=== PATIENT | male | born 1980 | race Caucasian/White ===

== ENCOUNTER 2024-10-10 12:07 | Day surgery (SDC) | payer OTHER, SELFPAY ==
--- OUTSIDE RECORDS SUMMARY | 2024-09-18 11:57 | XMS_ITS ---
[facility] Address [address] [place] [address] Care Team Providers Care Dumb Waiter Operator Name Role Phone Marta Singh MD Primary Care Provider Edna Liang [phone] Encounters Encounter Location Date Provider Diagnosis Surgery [facility] ([facility]) [address] [place] [id number] 09/12/2024 Edna Vleoz Plan Of Treatment Next Appt Details Provider Name:Edna springer, 09/26/2024 01:30:00 PM, [address] [place] [address], [phone], Provider Name:Edna springer, 10/10/2024 01:30:00 PM, [address] [place] [address], [phone], Provider Name:Edna springer, 10/15/2024 01:30:00 PM, [address] [place] [address], [phone], Provider Name:Edna springer, 10/22/2024 01:30:00 PM, [address] [place] [address], [phone], Provider Name:Edna springer, 11/01/2024 01:30:00 PM, [address] [place] [address], [phone], Progress Notes * Sylvain STEVEN:1980 (44 yo M)Acc No.[id number]:09/12/2024 Patient:Hector JAMES Provider:?Edna Veloz DPM :1980???Age:44 Y???Sex:Male Marco Antonio e:09/12/2024 Address:[address] [place] [address], [facility], [id number] Pcp:Marta Singh MD * Images: * The named appointment provid er may or may not be the originator of this progress note, and it is not deemed complete until electronically signed by the appointment provider. Sign off status: Pending * Provider:?Edna Veloz DPM Date:?0 09/12/2024 Generated for Teodoro marie/Romulo/Mcitting on:?09/18/2024 11:57 AM EDT
--- OUTSIDE RECORDS SUMMARY | 2024-09-18 11:57 | XMS_ITS ---
Author Organization [facility] Address [address] [place] [address] Care Team Providers Care Nuclear Radiation Engineer Name Role Phone Marta Singh MD Primary Care Provider Edna Liang [phone] Encounters Encounter Location Date Provider Diagnosis [address] [phone] 09/17/2024 Edna Veloz Plan Of Treatment Next Appt Details Provider Name:Edna springer, 09/26/2024 01:30:00 PM, [address] [place] [address], [phone], Provider Name:Edna springer, 10/10/2024 01:30:00 PM, [address] [place] [address], [phone], Provider Name:Edna springer, 10/15/2024 01:30:00 PM, [address] [place] [address], [phone], Provider Name:Edna springer, 10/22/2024 01:30:00 PM, [address] [place] [address], [phone], Provider Name:Edna springer, 11/01/2024 01:30:00 PM, [address] [place] [address], [phone], Progress Notes * Sylvain STEVEN:1980 (44 yo M)Acc No.[id number]:09/17/2024 Progress Notes Patient:Hector JAMES Provider:?Edna Veloz DPM :1980???Age:44 Y???Sex:Male Marco Antonio e:09/17/2024 Address:[address] [place], [place] [id number] Pcp:Marta Singh MD Subjective: * Chief Complaints: * ??? * Medical History:? Objective: * Vitals:? Assessment: Plan: * Treatment: * Images: * The named appointment provid er may or may not be the originator of this progress note, and it is not deemed complete until electronically signed by the appointment provider. Sign off status: Pending * Provider:?Edna Veloz DPM Date:?0 09/17/2024 Generated for Teodoro marie/Romulo/eTjasonsmitting on:?09/18/2024 11:56 AM EDT
--- OUTSIDE RECORDS SUMMARY | 2024-09-18 11:57 | XMS_ITS | Encounter Summary ---
Author Name [facility] Organization [facility] Address [address] [place] [address] Care Team Providers Care Candy Catcher Name Role Phone ERICKA CHUNG Primary Care Provider Unavailabl e Insurance Providers: All historical and current Section Date Range: From patient's date of to the date document was created. This section includes the names of all active insurance providers for the patient. Insurance Provider Type of Coverage Plan Name Start of Policy Coverage End of Policy Coverage Group Number Member ID Insurance Provider's Telephone Number Policy Sweeney's Name Patient's Relationship to Policy Sweeney Selected Encounter This section includes the information on record at [place] for the Encounter. Date/Time Encounter Type Encounter Description Reason Provider Source September 13, 2024 03:00 PM OFFICE O/P EST MOD 30 MIN PRIMARY CARE/MEDICINE ICD-10-CM Z01.818 Encounter for other preprocedural examination ERICKA CHUNG Encounter Template Text not used by [place] Assessments - Encounter Diagnoses This section includes the primary and secondary diagnoses documented for the Encounter. Date/Time Primary/Secondary Diagnosis Diagnosis Name Provider Source September 13, 2024 03:23 PM PRIMARY Encounter for other preprocedural examination ERICKA CHUNG Plan of Treatment: Future Appointments (+ 6 months) and Future Tests (+/- 45 days) The Plan of Treatment section includes future care activities for the patient from all VA treatmentfacilities. This section includes future appointments and future orders which are active, pending or scheduled. Future Appointments This section includes appointments that were scheduled to occur 6 months from the date of the Encounter, up to a maximum of 20 appointments. The data comes from all [facility]. Appointment Date/Time Appointment Type Appointme nt Facility Name September 25, 2024 02:30 PM [facility] Dec 10, 2024 02:00 PM [facility] Active, Pending, and Scheduled Orders This section includes a listing of several types of active, pending, and scheduled orders, including clinic medications orders, diagnostic test orders, procedure orders and consult orders; where the start date of the order is 45 days before the date of the Encounter or 45 days after the date of theEncounter. The data comes from all [facility]. Test Date/Time Test Type Test Details Facility Name Aug 28, 2024 08:39 AM Consult Order [facility] Cons Morning News Producer's Choice [facility] Lab Results: +/- 30 days of the encounter This section includes the Chemistry and Hematology Lab Results on record with [place] for the patient. Radiology Reports and Pathology Reports are provided separately, in subsequent sections. Lab Results This section contains the Chemistry/Hematology Results that were resulted 30 days before or 30 daysafter the date of the Encounter. Date/Time Source Result Type Result - Unit Interpretation Reference Range Specimen Type Comment Aug 22, 2024 09:09 AM [facility] BASIC METABOLIC PANEL (fasting) SERUM Specime n Type: SERUM No comment entered. Ordering Provider: ERICKA CHUNG Report Released Date/Time: Jul 18, 2024 03:45 PM Reporting Lab: [facility] [address] [facility] [address] Performing Lab: [facility] [address] [facility] [address] UREA NITROGEN 18 mg/dL 9-21 GLUCOSE 94 mg/dL 65-100 SODIUM 139 mmol/L 136-145 POTASSIUM 4.4 mmol/L 3.5-5.1 CHLORIDE 106 mmol/L 98-107 CO2 25 meq/L 22-29 CALCIUM 9.0 mg/dL 8.4-10.2 CREATININE, Serum 0.77 mg/dL 0.72-1.25 eGFR(CKD-EPI 2020) >90 mL/min >60 Aug 22, 2024 09:09 AM [facility] CBC AND DIFF (AUTO) BLOOD Specimen Type: BLOO D No comment entered. Ordering Provider: ERICKA CHUNG Report Released Date/Time: Jul 18, 2024 03:45 PM Reporting Lab: [facility] [address] [facility] [address] Performing Lab: [facility] [address] [facility] [address] WBC 6.93 10*3/uL 4.50-11.00 RBC 4.27 10*6/uL 4.23-5.66 HGB 13.2 g/dL 12.8-17 HCT 39.1 L 39.2-50.4 MCV 91.6 fL 82-99 MCHC 33.8 g/dL 30.8-35.1 PLT 229 10*3/uL 140-360 MPV 10.7 fL 9.2-12.4 RDW-CV 12.4 12.0-16.0 MONO, ABS 0.74 10*3/uL 0.30-1.10 MCH 30.9 pg 26.2-32.6 NEUT % 63.3 43.7-75.8 LYMPH % 24.4 14.0-42.3 MONO % 10.7 5.1-13.7 EOS % 1.0 0.4-6.8 BASO % 0.3 0.1-2.0 NEUT, ABS 4.39 10*3/uL 2.20-7.60 LYMPH, ABS 1.69 10*3/uL 1.00-3.20 EOS, ABS 0.07 10*3/uL 0.03-0.44 BASO, ABS 0.02 10*3/uL 0.01-0.13 IMMATURE GRAN % 0.3 0.0-0.7 IMMATURE GRAN, ABS 0.02 10*3/uL 0.00-0.0 6 NRBC % 0.0 0.0-0.0 NRBC, ABS 0.00 10*3/uL 0.00-0.00 Social History: Smoking Status (Most current) and Tobacco Use (All prior to encounter date) This section includes the most current, and the historical, smoking and tobacco- related health factors from the [place] facility where the Encounter took place. Current Smoking Status This section includes the most current smoking, or tobacco-related health factor, from the [place] facility where the Encounter took place. Date/Time Current Smoking Status Comment Jose Luis ity Aug 28, 2024 10:00 AM VA-TOBACCO USE FORMER CIGARETTES [facility] Tobacco Use History This section includes a history of the smoking, or tobacco-related health factors, that were collected on or before the date of the Encounter. The data comes from the [place] facility where the Encounter took place. 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 [facility] Aug 28, 2024 10:00 AM VA-TOBACCO USE MOIRA RY DAY ENDS [facility] Aug 28, 2024 10:00 AM VA-TOBACCO USE MOIRA RY DAY OTHER TYPE [facility] Aug 28, 2024 10:00 AM VA-TOBACCO USE FOR EDDIE CIGARETTES [facility] Aug 28, 2024 10:00 AM VA-TOBACCO USE MED [facility] May 19, 2023 01:00 PM VA-TOBACCO FORMER USER [facility] May 19, 2023 01:00 PM VA-TOBACCO QUIT 5 TO < 15 YRS [facility] Apr 16, 2022 11:30 AM VA-TOBACCO DOESNT USE WI 30 MIN WAKEUP [facility] Apr 16, 2022 11:30 AM VA-TOBACCO USE > 1 5 LESS THAN 30 YEARS [facility] Apr 16, 2022 11:30 AM VA-TOBACCO USE ADVICE [facility] Apr 16, 2022 11:30 AM VA-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 [facility] Apr 16, 2022 11:30 AM VA-TOBACCO USE MED NO [facility] Apr 16, 2022 11:30 AM VA-TOBACCO USER EVERY DAY [facility] May 14, 2021 03:00 PM VA-TOBACCO DOESNT USE WI 30 MIN WAKEUP [facility] May 14, 2021 03:00 PM VA-TOBACCO USE 5 TO 15 YEARS [facility] May 14, 2021 03:00 PM VA-TOBACCO USE ADVICE [facility] May 14, 2021 03:00 PM VA-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 [facility] May 14, 2021 03:00 PM VA-TOBACCO USE MED NO [facility] May 14, 2021 03:00 PM VA-TOBACCO USER EVERY DAY [facility] Mar 20, 2019 09:35 AM VA-TOBACCO FORMER USER [facility] Mar 20, 2019 09:35 AM VA-TOBACCO QUIT 15 YRS OR MORE [facility] Jan 18, 2018 03:25 PM CURRENT SMOKER Vape 3mg, Quit cigarettes 08/2017 [facility] Mar 29, 2017 11:16 AM CURRENT SMOKER 1 pack daily since 17yrs old [facility] Mar 29, 2017 11:16 AM V1-PT NOT INTEREST ED IN QUIT TOBACCO USE [facility] Jan 31, 2014 01:23 PM CURRENT SMOKER smokes one ppd of cigaretts [facility] Jan 31, 2014 01:23 PM V1-PT DECLINES REF TO TOBACCO CESS [facility] Jan 31, 2014 01:23 PM V1-PT DECLINES TOB ACCO CESSATION [facility] Jan 31, 2014 01:23 PM V1-PT NOT INTEREST ED IN QUIT TOBACCO USE [facility] Oct 05, 2012 02:46 PM CURRENT SMOKER Pt. stated he smokes a pack a day. [facility] Oct 05, 2012 02:46 PM V1-PT DECLINES REF TO TOBACCO CESS [facility] Oct 05, 2012 02:46 PM V1-PT DECLINES TOB ACCO CESSATION [facility] Oct 05, 2012 02:46 PM V1-PT NOT INTEREST ED IN QUIT TOBACCO USE [facility] Jan 16, 2009 11:29 AM CURRENT SMOKER 1 ppd x 10yrs [facility] September 10, 2008 01:18 PM V1-PT DECLINES REF TO TOBACCO CESS [facility] September 10, 2008 01:18 PM V1-PT DECLINES TOB ACCO CESSATION [facility] September 10, 2008 01:18 PM V1-PT THINKING ABO UT QUIT TOBACCO USE [facility] Nov 13, 2007 10:09 AM CURRENT SMOKER 1 ppd [facility] Nov 13, 2007 10:09 AM V1-PT DECLINES REF TO TOBACCO CESS [facility] Nov 13, 2007 10:09 AM V1-PT DECLINES TOB ACCO CESSATION [facility] Nov 13, 2007 10:09 AM V1-PT NOT INTEREST ED IN QUIT TOBACCO USE [facility] Feb 17, 2007 09:42 AM V1-PT DECLINES REF TO TOBACCO CESS [facility] Feb 17, 2007 09:42 AM V1-PT READY TO GE T TOBACCO USE [facility] Nov 21, 2006 10:49 AM [facility] Oct 07, 2005 03:08 PM [facility] Encounter Notes: All associated encounter notes This section contains the clinical notes associated to the Encounter. Date/Time Encounter Note(s) Provider Source September 13, 2024 11:04 AM PHYSICIAN NOTE: LOCAL TITLE: MD NOTE STANDARD TITLE: PHYSICIAN NOTE DATE OF NOTE: SEPTEMBER 13, 2024@11:04 ENTRY DATE: SEPTEMBER 13, 2024@11:04:51 AUTHOR: ERICKA CHUNG EXP COSIGNER: URGENCY: STATUS: COMPLETED HISTORY OF PRESENT ILLNESS: SAVANNAH STEVEN is a 44 yo MALE who presents at the [facility] for a pre-op medical clearance exam. 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 Active problems - Computerized Problem List is the source for the followin. Hypertension 2. Sleep apnea 3. Back pain 4. Neuropathy 5. Former Smoker 6. Psoriasis 7. Morbid obesity The following VA and Non-VA meds were reconciled with patient: Active Outpatient Medications (including Supplies): Issue Date Status Last Fill Active Outpatient Medications Refills Expiration 1) DICLOFENAC NA 1% TOP GEL Qty: 200 for 14 ACTIVE Issue: 06/29/24 days Sig: APPLY 4 GRAMS TOPICALLY FOUR TIMES Refills: 2 Last : 07/20/24 A DAY FOR OSTEOARTHRITIS - USE DOSING CARD Expr : 06/30/25 PROVIDED IN BOX Indication: FOR JOINT PAIN 2) DULOXETINE HCL 60MG EC CAP Qty: 90 for 90 ACTIVE Issue: 06/12/24 days Sig: TAKE ONE CAPSULE BY MOUTH ONCE Refills: 2 Last : 08/31/24 DAILY Expr : 06/13/25 Indication: FOR CHRONIC MUSCLE OR BONE PAIN 3) LISINOPRIL 10MG TAB Qty: 90 for 90 days Sig: ACTIVE Issue: 06/12/24 TAKE ONE TABLET BY MOUTH ONCE DAILY TO Refills: 2 Last : 08/31/24 CONTROL BLOOD PRESSURE Expr : 02/12/26 4) NAPROXEN 500MG TAB Qty: 180 for 90 days Sig: ACTIVE Issue: 05/31/24 TAKE ONE TABLET BY MOUTH TWICE DAILY TAKE Refills: 0 Last : 05/31/24 WITH FOOD; /INFLAMMATION/SWELLING Expr : 08/29/24 Indication: FOR PAIN 5) PREGABALIN 150MG ORAL CAP Qty: 60 for 30 ACTIVE Issue: 05/31/24 days Sig: TAKE ONE CAPSULE BY MOUTH TWICE Refills: 0 Last : 07/25/24 DAILY Expr : 12/01/24 Indication: FOR NERVE PAIN 6) SEMAGLUTIDE WL 0.25MG/0.5ML PEN 0.5ML Qty: 4 ACTIVE Issue: 08/02/24 for 28 days Sig: INJECT 0.25MG Refills: 0 Last : 08/02/24 SUBCUTANEOUSLY ONCE A WEEK Expr : 09/01/24 Indication: FOR WEIGHT LOSS Start Date Active Non-VA Medications Status Stop Date 1) Non-VA CHOLECALCIF 50MCG (D3-2,000UNIT) TAB ACTIVE SiUNIT BY MOUTH ONCE DAILY 7 Total Medications ALLERGIES: ========= Patient has answered [facility] LAB HISTORY: CHEM 7 TREND Collection DT Spec GLUCOSE BUN CREATIN Sodium K+/Pot CL CO2 08/22/2024 09:09 SERUM 94 18 0.77 139 4.4 106 25 05/10/2024 10:26 SERUM 106 H 16 0.84 138 4.9 105 27 11/11/2023 12:55 SERUM 89 18 0.81 141 4.3 108 24 05/12/2023 10:12 SERUM 98 12 0.79 140 4.6 108 24 11/16/2022 13:48 SERUM 99 14 0.79 141 4.5 107 25 CBC TREND Collection DT Spec WBC RBC HGB HCT MCV MCH PLT 08/22/2024 09:09 BLOOD 6.93 4.27 13.2 39.1 L 91.6 30.9 229 05/10/2024 10:26 BLOOD 8.39 4.49 13.7 41.3 92.0 30.5 283 05/12/2023 10:12 BLOOD 6.96 4.37 13.4 40.4 92.4 30.7 275 05/13/2022 08:48 BLOOD 8.47 4.28 12.9 39.5 92.3 30.1 256 05/11/2021 09:26 BLOOD 13.70 H 4.17 L 13.1 40.2 96.4 31.4 300 HEMOGLOBIN A1C TREND Collection DT Spec HGBA1c 05/10/2024 10:26 BLOOD 5.4 05/12/2023 10:12 BLOOD 5.3 05/13/2022 08:48 BLOOD 5.2 05/11/2021 09:26 BLOOD 5.3 03/19/2020 09:17 BLOOD 5.2 LIPID PANEL TREND Collection DT Spec CHOL HDL CHO/HDL LDL-c TRIG 05/10/2024 10:26 SERUM 215 H 37 L 5.8 156 H 109 11/11/2023 12:55 SERUM 203 H 39 L 5.2 145 H 93 05/12/2023 10:12 SERUM 200 H 36 L 5.6 148 H 82 05/13/2022 08:48 SERUM 193 44 4.4 134 H 74 05/11/2021 09:26 SERUM 196 48 4.1 128 99 LIVER PANEL TREND Collection DT Spec AST ALT T BILI ALK LALY T. PROT ALBUMIN 05/10/2024 10:26 SERUM 18 27 0.4 63 6.9 4.0 11/11/2023 12:55 SERUM 12 23 0.6 58 6.4 3.9 05/12/2023 10:12 SERUM 17 24 0.5 54 6.6 4.1 05/13/2022 08:48 SERUM 13 17 0.6 59 6.7 4.0 05/11/2021 09:26 SERUM 13 28 0.8 48 6.5 3.9 Collection DT Spec TSH 05/10/2024 10:26 SERUM 1.64 ========= HISTORY: PERIOD OF SERVICE - [facility] [place] FROM Jun TO Jun COMBAT SERVICE INDICATED: No VITAL SIGNS: Blood Pressure 140/80 (08/30/2024 13:00) Repeat BP: 128/72 Pulse 66 (08/28/2024 10:14) Respiration 18 (08/28/2024 10:14) Pulse Oximetry 99% (08/28/2024 10:14) Temperature 98.1 F [36.7 C] (08/28/2024 10:14) Pain 2 (08/30/2024 13:00) Height 70 in [177.8 cm] (08/28/2024 10:14) Weight 347 lb [157.40 kg] (09/04/2024 16:12) BMI BMI: 49.9 REVIEW OF SYSTEMS: ENT: No sore throat, no cough CARDIOVASCULAR: No chest pain, no palps RESPIRATORY: No SOB, no wheezing GASTROINTESTINAL: No abd pain, no N/V/D GENITOURINARY: No urinary symptoms MUSCULOSKELETAL: No joint pain NEUROLOGIC: No H/A, no weakness EXAMINATION: GENERAL: WD/WN in NAD HEENT: Moist mucosa NECK: Supple, no LN's HEART: RRR, S1-S2, no murmurs LUNGS: CTA B/L ABDOMEN: Soft, NT/ND PERIPH PULSES: 2+ B/L EXTREMITIES: FROM x 4, no edema NEUROLOGIC: AAO x3, no focal findings PSYCHIATRIC: Good eye contact ASSESSMENT/PLAN: 1. 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 He is considered low risk for a low risk procedure. EKG 08/20/24: NSR @65 BPM 08/22/24: CBC w/diff & BMP normal 1. Hypertension: under good control on lisinopril 10mg/day 2. Hyperlipidemia: diet controlled 3. Morbid Obesity: BMI ~52, started Wegov[employer] [place] Qwkly on 08/02/24 and is participating in MOVE! program 4. Sleep Apnea: dxed 2014, compliant with CPAP 5. Former Smoker: quit cigs 08/2017, still vaping, counseled to quit 6. Psoriasis and Atopic Dermatitis: B/L hands, on Triamcinolone 0.5% cream BID prn, advised liquid band-aid for splits in his skin on his fingertips FOLLOW UP: as scheduled 12/10/24 - HTN/Lipids/WT - FBW prior ========= No barriers; Patient understands and agrees to current treatment plan. If pt has any questions, concerns, or changes in current health status he/she will call or come in to the VA. Medication Reconciliation: Outpatient: Has the patient been taking medications as documented in the EMLR? YES: The patient has been taking medications as documented in the EMLR. Essential Medication List for Review used to complete this medication reconciliation. INCLUDED IN THIS LIST: Alphabetical list of active outpatient prescriptions dispensed from this [place] (local) and dispensed from another [place] or [facility] facility (remote) as well as inpatient orders (local, pending and active), local clinic medications, locally documented non-VA medications, and local prescriptions that have or been discontinued in the past 90 days. - All changes in medications, including all non-VA/Herbal/OTC medications were entered into CPRS. - If there were any medications the patient should no longer take, they were discontinued. - The patient/caregiver was instructed to update this list, discard old lists, and take this list to the next appointment, whether with a VA or non-VA provider. JLV Link Data on this list may not be complete. Please check [employer]. Allergies/ADRs (Tool #5) FACILITY ALLERGY/ADR -------- [facility] No Known Allergies [facility] NO KNOWN ALLERGIES Med [facility] (Tool #1) INCLUDED IN THIS LIST: Alphabetical list of active outpatient prescriptions dispensed from this DE (local) and dispensed from another DE or [facility] facility (remote) as well as inpatient orders (local pending and active), local clinic medications, locally documented non-VA medications, and local prescriptions that have or been discontinued in the past 90 days. Non-VA Meds Last Documented On: Mar 29, 2018 NOTE The display of VA prescriptions dispensed from another [place] or [facility] facility (remote) is limited to active outpatient prescription entries matched to National Drug File at the originating site and may not include some items such as investigational drugs, compounds, etc. NOT INCLUDED IN THIS LIST: Medications self-entered by the patient into personal health records (i.e. auctionPAL) are NOT included in this list. Non-VA medications documented outside this DE, remote inpatient orders (regardless of status) and remote clinic medications are NOT included in this list. The patient and provider must always discuss medications the patient is taking, regardless of where the medication was dispensed or obtained. ---- Non-VA CHOLECALCIF 50MCG (D3-2,000UNIT) TAB TAKE TWO TABLETS BY MOUTH ONCE DAILY Patient wants to buy from Non-VA pharmacy. OUTPT DICLOFENAC NA 1% TOP GEL (Status = Active) APPLY 4 GRAMS TOPICALLY FOUR TIMES A DAY FOR JOINT PAIN FOR OSTEOARTHRITIS - USE DOSING CARD PROVIDED IN BOX Rx# [id number] Last Released: 07/18/24 Qty/Days Supply: 200/14 Rx Expiration Date: 06/30/25 Refills Remainin Indication: FOR JOINT PAIN OUTPT DULOXETINE HCL 60MG EC CAP (Status = Active) TAKE ONE CAPSULE BY MOUTH ONCE DAILY Rx# [id number] Last Released: 08/23/24 Qty/Days Supply: 90 Rx Expiration Date: 06/13/25 Refills Remainin Indication: FOR CHRONIC MUSCLE OR BONE PAIN OUTPT LISINOPRIL 10MG TAB (Status = Active) TAKE ONE TABLET BY MOUTH ONCE DAILY TO CONTROL BLOOD PRESSURE Rx# [id number] Last Released: 08/24/24 Qty/Days Supply: 90 Rx Expiration Date: 06/13/25 Refills Remainin OUTPT NAPROXEN 500MG TAB (Status = Discontinued) TAKE ONE TABLET BY MOUTH TWICE DAILY TAKE WITH FOOD; FOR PAIN/INFLAMMATION/SWELLING Rx# [id number] Last Released: 06/05/24 Qty/Days Supply: Rx Expiration Date: 08/29/24 Refills Remainin Indication: FOR PAIN OUTPT NAPROXEN 500MG TAB (Status = Active) TAKE ONE TABLET BY MOUTH TWICE DAILY TAKE WITH FOOD; FOR PAIN/INFLAMMATION/SWELLING Rx# [id number] Last Released: 08/30/24 Qty/Days Supply: Rx Expiration Date: 08/29/25 Refills Remainin Indication: FOR PAIN OUTPT PREGABALIN 150MG ORAL CAP (Status = Discontinued) TAKE ONE CAPSULE BY MOUTH TWICE DAILY FOR NERVE PAIN Rx# [id number] Last Released: 07/23/24 Qty/Days Supply: Rx Expiration Date: 12/01/24 Refills Remainin Indication: FOR NERVE PAIN OUTPT PREGABALIN 150MG ORAL CAP (Status = Active) TAKE ONE CAPSULE BY MOUTH TWICE DAILY FOR NERVE PAIN Rx# [id number] Last Released: 08/30/24 Qty/Days Supply: Rx Expiration Date: 02/28/25 Refills Remainin Indication: FOR NERVE PAIN OUTPT SEMAGLUTIDE WL 0.25MG/0.5ML PEN 0.5ML (Status = Discontinued) INJECT 0.25MG SUBCUTANEOUSLY ONCE A WEEK Rx# [id number] Last Released: 08/07/24 Qty/Days Supply: 08/27 Rx Expiration Date: 09/01/24 Refills Remainin Indication: FOR WEIGHT LOSS OUTPT SEMAGLUTIDE WL 0.5MG/0.5ML PEN 0.5ML (Status = Active) INJECT 0.5MG SUBCUTANEOUSLY ONCE A WEEK FOR WEIGHT LOSS Rx# [id number] Last Released: 08/29/24 Qty/Days Supply: 08/27 Rx Expiration Date: 09/27/24 Refills Remainin Indication: FOR WEIGHT LOSS ---- SUPPLIES ---- Home Telehealth ([facility]) Referral: Patient not a candidate for [facility] Program at this time. /clifford/ ERICKA CHUNG MD Primary Care Physician Signed: 09/13/2024 16:11 ERICKA CHUNG [facility]
--- OUTSIDE RECORDS SUMMARY | 2024-09-18 11:57 | XMS_ITS | Encounter Summary ---
Author Name [facility] [facility] [place] Address [address] [place] [address] Care Team Providers Care Childcare Aide Name Role Phone ERICKA CHUNG Primary Care [...] section includes the information on record at [place] for the Encounter. Date/Time Encounter Type Encounter Description Reason Provider Source Oct 24, 2023 01:30 PM OFFICE O/P EST HI 40 MIN EMG - ELECTROMYOGRAM ICD-10-CM M54.59 Other low back pain TRCAEE GORDON [facility] Encounter Template Text not used by [place] Assessments - Encounter Diagnoses This section includes the primary and secondary diagnoses documented for the Encounter. Date/Time Primary/Secondary Diagnosis Diagnosis Name Provider Source Oct 28, 2023 05:27 PM PRIMARY Other low back pain TRACEE GORDON [facility] Plan of Treatment: Future Appointments (+ 6 months) and Future Tests (+/- 45 days) The Plan of Treatment section includes future care activities for the patient from all [place] treatmentfacilities. This section includes future appointments and future orders which are active, pending or scheduled. Future Appointments This section includes appointments that were scheduled to occur 6 months from the date of the Encounter, up to a maximum of 20 appointments. The data comes from all [place] treatment facilities. Appointment Date/Time Appointment Type Appointme nt Facility Name Oct 26, 2023 11:00 AM [facility] Nov 17, 2023 02:30 PM [facility] Mar 21, 2024 01:30 PM [facility]BUL[facility] Lab Results: +/- 30 days of the encounter This section includes the Chemistry and Hematology Lab Results on record with [place] for the patient. Radiology Reports and Pathology Reports are provided separately, in subsequent sections. Lab Results This section contains the Chemistry/Hematology Results that were resulted 30 days before or 30 daysafter the date of the Encounter. Date/Time Source Result Type Result - Unit Interpretation Reference Range Specimen Type Comment Nov 11, 2023 12:55 PM [facility] HEPATITIS B SURFACE ANTIGEN (HBsAg)- SERUM Specimen Type: SERUM Comment: A 'Reactive' result indicates HBsAb results >/= 12.0 mIU/mL and immunity to HBV infection. A Reactive result ( Positive prior to 02/12/13) is diagnostic of acute or chronic hepatitis B infection. The presence of Hepatitis B surface antigen is frequently associated with infectivity. Ordering Provider: ERICKA CHUNG Report Released Date/Time: May 19, 2023 01:56 PM Reporting Lab: [address] [address] Performing Lab: [address] [address] HBsAg Non Reactive Non Reactive Nov 11, 2023 12:55 PM [facility] HEPATITIS B SURFACE ANTIBODY (HBsAb)- SERUM Specimen Type: SERUM No comment entered. Ordering Provider: ERICKA CHUNG Report Released Date/Time: May 19, 2023 01:56 PM Reporting Lab: [address] [address] Performing Lab: [facility] Nov 11, 2023 12:55 PM [facility] LIPID PANEL FASTING SERUM Specimen Type: SERU M No comment entered. Ordering Provider: ERICKA CHUNG Report Released Date/Time: May 19, 2023 06:46 AM Reporting Lab: [facility] [address] [facility] [address] Performing Lab: [address] [address] CHOLESTEROL 203 mg/dL H TRIGLYCERIDE 93 mg/dL 0-150 LDL calculated 145 mg/dL H 0-129 CHOL/HDL 5.2 HDL CHOLESTEROL 39 mg/dL L 40-60 Nov 11, 2023 12:55 PM [facility] LIVER FUNCTION SERUM Specimen Type: SERUM No comment entered. Ordering Provider: ERICKA CHUNG Report Released Date/Time: May 19, 2023 06:46 AM Reporting Lab: [address] [address] Performing Lab: [address] [address] PROTEIN,TOTAL 6.4 g/dL 6.0-8.3 ALBUMIN 3.9 g/dL 3.5-5.0 ALKALINE PHOSPHATASE 58 U/L 40-150 AST 12 U/L 5-34 ALT 23 U/L BILIRUBIN, TOTAL 0.6 mg/dL 0.2-1.2 Nov 11, 2023 12:55 PM [facility] BASIC METABOLIC PANEL (fasting) SERUM Specime n Type: SERUM No comment entered. Ordering Provider: ERICKA CHUNG Report Released Date/Time: May 19, 2023 06:46 AM Reporting Lab: [address] [address] Performing Lab: [address] [address] UREA NITROGEN 18 mg/dL 7-25 GLUCOSE 89 mg/dL 65-100 SODIUM 141 mmol/L 135-145 POTASSIUM 4.3 mmol/L 3.5-5.0 CHLORIDE 108 mmol/L 100-110 CO2 24 meq/L 20-30 CREATININE, Serum 0.81 mg/dL 0.50-1.40 eGFR(CKD-EPI 2020) >90 mL/min >60 Vital Signs: All taken on the encounter date This section contains inpatient and outpatient Vital Signs collected on the date of the Encounter. Date/Time Temperature Pulse Blood Pressure Respiratory Rate SP02 Pain Height Weight Body Mass Index Source Oct 24, 2023 01:34 PM 79 140/92 20 96 4 [facility] Social History: Smoking Status (Most current) and Tobacco Use (All prior to encounter date) This section includes the most current, and the historical, smoking and tobacco- related health factors from the [place] facility where the Encounter took place. Current Smoking Status This section includes the most current smoking, or tobacco-related health factor, from the [place] facility where the Encounter took place. Date/Time Current Smoking Status Comment Facil ity Mar 25, 2020 09:50 AM VA-TOBACCO FORMER USER [facility] Tobacco Use History This section includes a history of the smoking, or tobacco-related health factors, that were collected on or before the date of the Encounter. The data comes from the [place] facility where the Encounter took place. Date/Time Smoking Status/Tobacco Use Comment F acility Mar 25, 2020 09:50 AM CO-TOBACCO QUIT 1 TO < 5 YRS [facility] Radiology Reports: +/- 30 days of the encounter Radiology Reports For cases when an order for radiology services may have been completed prior to the date of the Encounter, the report list includes the Radiology Reports that were completed up to 30 days before dateof the Encounter. For cases when an order for radiology services may have been completed after the date of the Encounter, the report list also includes the Radiology Reports that were completed up to30 days after date of the Encounter. The data comes from all [place] treatment facilities. Date/Time Radiology Report Provider Source Oct 26, 2023 11:17 AM FLUOROSCOPIC HARPREET NCE OF NEEDLE/SPINE: SAVANNAH STEVEN [id number] -1980 M Exm Date: OCT 26, 2023@11:17 Req Phys: TRACEE GORDON Pat Loc: CWM/NO/MED REHAB/SPINE INJ (Re Img Loc: NHM/BUILDING 1 Service: Unknown [facility] , (Case [id number] COMPLETE) FLUOROSCOPIC GUIDANCE OF NEEDLE/S(RAD Detailed) CPT:10230 Reason for Study: transforaminal epidural steroid injection Clinical History: Report Status: Verified Date Reported: NOV 10, 2023 Date Verified: NOV 10, 2023 Transformation Coach E-Sig:/ES/MOLLY ELLIOTT JR Report: Study: Pain injection of the lumbar spine. Findings: Fluoroscopic guidance was provided to Pain Management for interventional pain injection. No dictation provided for this study. Images captured for documentation only. Total fluoroscopy time used was 21.8 seconds. Total cumulative dose is 19.73 mGy. Impression: Fluoroscopic guidance for interventional pain injection. Primary Diagnostic Code: No immediate attention required Primary Interpreting Staff: MOLLY ELLIOTT JR, Radiologist (Transformation Coach) /MOLLY TROTTER JR [facility] Encounter Notes: All associated encounter notes This section contains the clinical notes associated to the Encounter. Date/Time Encounter Note(s) Provider Source Oct 24, 2023 02:35 PM PHYSICAL MEDICINE REHAB CONSULT: LOCAL TITLE: CONSULT REPORT/NCS ELECTROMYOGRAPHY PM&R STANDARD TITLE: PHYSICAL MEDICINE REHAB CONSULT DATE OF NOTE: OCT 24, 2023@14:35 ENTRY DATE: OCT 24, 2023@14:35:12 AUTHOR: TRACEE GORDON EXP COSIGNER: URGENCY: STATUS: COMPLETED SAVANNAH STEVEN is a 43 y/o RHD WHITE MALE who presents today for an NCS/EMG to evaluate for potential etiologies contributing to low back pain with radiation and paresthesia in the right lower extremity. Patient is currently a patient in our PM&R clinic, having received right L3-4 and L4-5 transforaminal epidural steroid injections which provided 75% pain relief for about 3 months (after an intial day of fever and increased pain). Pain has slowly returned since. He reports right buttock radiating into the right anterior thigh and down to just below the knee as well as top of the right foot. Pain in the leg is rated at 4/10 but can be more severe at 6/10 or above. Symptoms are constant with varying severity, and worsen with prolonged sitting and walking. Denies fever, chills, night sweat, saddle paresthesia, or bowel or bladder dysfunction. PMHx: Active problems - Computerized Problem List is the source for the followin. Hypertension 2. Vitamin D deficiency 3. Sleep apnea 4. Back pain 5. Neuropathy 6. Former Smoker 7. Psoriasis 8. Morbid obesity Service Connected Disabilities with % Eligibility: SERVICE CONNECTED 50% to 100% VERIFIED Total S/C %: 80 LIMITED MOTION OF ANKLE 10% S/C MOOD DISORDER 30% S/C SLEEP APNEA SYNDROMES 50% S/C LIMITED MOTION OF ANKLE 10% S/C TINNITUS 10% S/C MIGRAINE HEADACHES 30% S/C PSxHx: Carpal tunnel surgery August 2019 Fam Hx: NC Soc Hx: [-] Tobacco [-] Illicit drugs ALL: Patient has answered NKA MEDS: Active Outpatient Medications (including Supplies): DULOXETINE HCL 60MG EC CAP TAKE ONE CAPSULE BY MOUTH ONCE ACTIVE DAILY LISINOPRIL 10MG TAB TAKE ONE TABLET BY MOUTH ONCE DAILY TO ACTIVE CONTROL BLOOD PRESSURE NAPROXEN 500MG TAB TAKE ONE TABLET BY MOUTH TWICE DAILY ACTIVE TAKE WITH FOOD; FOR PAIN/INFLAMMATION/SWELLING PREGABALIN 150MG ORAL CAP TAKE ONE CAPSULE BY MOUTH TWICE ACTIVE DAILY FOR NERVE PAIN Non-VA CHOLECALCIF 50MCG (D3-2,000UNIT) TAB 4000UNIT BY ACTIVE MOUTH ONCE DAILY ROS: Other than mentioned above, pertinent 13 points of system are negative. PHYSICAL EXAMINATION: Vitals Enter at: Oct 24, 2023@13:34:47 BP: 140/92 P: 79 R: 20 GEN: WD, WN. Awake, alert, cooperative with exam. In NAD. CVS: Extremities warm/well perfused. No lower extremity edema. PULM: Breathing unlabored, no accessory muscle use. EXTREMITIES: No cyanosis or edema of the lower extremities. SKIN: No rashes, lesions, or skin breakdown over exposed areas including areas tested with needle EMG today. MUSCULOSKELETAL EXAM: No gross deformities of the extremities or spine. 5/5 strength of bilateral lower extremities without focal weakness. NEURO: AA & O x 3. Sensation intact to light touch in bilateral lower extremities except over the right thigh. No ankle clonus bilaterally. Gait is slightly wide based, partially due to body habitus, with mild trendelenburg. CONSENT: verbal and written consent in iMED. TIME OUT: Patient correctly identified: [x] Full name [x] [x] Last 4 of SS# [x] Procedure name FINDINGS: 1. Normal right sural antisensory response. 2. Normal right superficial fibular antisensory response. 3. Unable to obtain right lateral femoral cutaneous antisensory response. 4. Normal right tibial motor response. 5. Normal right fibular motor response. 6. Normal monopolar needle EMG of selected muscles in the right lower extremity, per table attached. IMPRESSION: NORMAL STUDY. 1. There is no electrodiagnostic evidence of a right tibial or peroneal mononeuropathy, lumbosacral plexopathy, generalized peripheral neuropathy, myopathy, motor neuron disease, or L2-S1 radiculopathy. 2. The right lateral femoral cutaneous nerve was unable to be obtained due to this study's limitations and partially due to patient's body habitus. Meralgia paresthetica cannot be ruled out. RECOMMENDATIONS: - Preliminary results of the study was discussed with patient. - Scheduling repeat right L3-4 and L4-5 transforaminal epidural steroid injection. - Follow-up with ordering provider to discuss results and management. If patient's symptoms worsen, a repeat NCS/EMG is recommended in 6-12 months (or sooner if clinically indicated) for re-evaluation. Thank you for allowing me to participate in this patient's care. Please call with any questions/concerns. MDM: 65 min Medication Reconciliation: Outpatient: Has the patient been taking medications as documented in the EMLR? YES: The patient has been taking medications as documented in the EMLR. Essential Medication List for Review used to complete this medication reconciliation. INCLUDED IN THIS LIST: Alphabetical list of active outpatient prescriptions dispensed from this [place] (local) and dispensed from another [place] or [facility] facility (remote) as well as inpatient orders [...] whether with a VA or non-VA provider. /clifford/ TRACEE GORDON DO ORCHESTRA CONDUCTOR Signed: 10/28/2023 17:25 TRAECE GORDON [facility]
--- OUTSIDE RECORDS SUMMARY | 2024-09-18 11:57 | XMS_ITS ---
Author Organization [facility] Address [address] [place] [address] Care Team Providers Care Nurse Examiner Name Role Phone Marta Singh MD Primary Care Provider Edna Liang [phone] REASON FOR VISIT [facility] sx booking process 10/10/24 Encounters Encounter Location Date Provider Diagnosis [facility] [address] [address] 09/03/2024 Edna Veloz Plan Of Treatment Next Appt Details Provider Name:Edna springer, 09/26/2024 01:30:00 PM, [address] [place] [address], [phone], Provider Name:Edna springer, 10/10/2024 01:30:00 PM, [address] [place] [address], [phone], Provider Name:Edna springer, 10/15/2024 01:30:00 PM, [address] [place] [address], [phone], Provider Name:Edna springer, 10/22/2024 01:30:00 PM, [address] [place] [address], [phone], Provider Name:Edna springer, 11/01/2024 01:30:00 PM, [address] [place] [address], [phone], Progress Notes * Hector STEVENDOB:1980 (44 yo M)Acc No.[id number]:09/03/2024 Patient:?TENISHA Hector :1980???Age:44 Y???Sex:Male Address:[address] [place] [id number] * * Date:?
--- OUTSIDE RECORDS SUMMARY | 2024-09-18 11:57 | XMS_ITS | Encounter Summary ---
Author Name [facility] [place] [facility] [place] Address [address] [place] [address] Care Team Providers Care Copyright Manager Name Role Phone MARTA CHUNG Primary Care Provider Unavailabl e Insurance [...] section includes the information on record at [place] for the Encounter. Date/Time Encounter Type Encounter Description Reason Provider Source Nov 17, 2023 02:30 PM OFFICE O/P EST LOW 20 MIN PRIMARY CARE/MEDICINE ICD-10-CM I10 Essential (primary) hypertension MARTA CHUNG Encounter Template Text not used by [place] Assessments - Encounter Diagnoses This section includes the primary and secondary diagnoses documented for the Encounter. Date/Time Primary/Secondary Diagnosis Diagnosis Name Provider Source Nov 17, 2023 03:00 PM PRIMARY Essential (primary) hypertension MARTA CHUNG Nov 17, 2023 03:00 PM SECONDARY Morbid (severe) obesity due to excess calories MARTA CHUNG Plan of Treatment: Future Appointments (+ [...] 20 appointments. The data comes from all [place] treatment facilities. Appointment Date/Time Appointment Type Appointme nt Facility Name Mar 21, 2024 01:30 PM AMBULATORY - REHAB MEDICIN E [facility] Lab Results: +/- 30 days of the encounter This section includes the Chemistry and Hematology Lab Results on record with [place] for the patient. Radiology Reports and Pathology Reports are provided separately, in subsequent sections. Lab Results This section contains the Chemistry/Hematology Results that were resulted 30 days before or 30 daysafter the date of the Encounter. Date/Time Source Result Type Result - Unit Interpretation Reference Range Specimen Type Comment Nov 11, 2023 12:55 PM [facility] HEPATITIS B SURFACE ANTIGEN (HBsAg)- SERUM Specimen Type: SERUM Comment: A 'Reactive' result indicates HBsAb results >/= 12.0 mIU/mL and immunity to HBV infection. A Reactive result ( Positive prior to 02/12/13) is diagnostic of acute or chronic hepatitis B infection. The presence of Hepatitis B surface antigen is frequently associated with infectivity. Ordering Provider: MARTA CHUNG Report Released Date/Time: May 19, 2023 01:56 PM Reporting Lab: [address] [address] Performing Lab: [address] [address] HBsAg Non Reactive Non Reactive Nov 11, 2023 12:55 PM [facility] HEPATITIS B SURFACE ANTIBODY (HBsAb)- SERUM Specimen Type: SERUM No comment entered. Ordering Provider: MARTA CHUNG Report Released Date/Time: May 19, 2023 01:56 PM Reporting Lab: [address] [address] Performing Lab: [facility] Nov 11, 2023 12:55 PM [facility] LIPID PANEL FASTING SERUM Specimen Type: SERU M No comment entered. Ordering Provider: MARTA CHUNG Report Released Date/Time: May 19, 2023 06:46 AM Reporting Lab: [facility] [address] [facility] [address] Performing Lab: [address] [address] CHOLESTEROL 203 mg/dL H TRIGLYCERIDE 93 mg/dL 0-150 LDL calculated 145 mg/dL H 0-129 CHOL/HDL 5.2 HDL CHOLESTEROL 39 mg/dL L 40-60 Nov 11, 2023 12:55 PM [facility] LIVER FUNCTION SERUM Specimen Type: SERUM No comment entered. Ordering Provider: MARTA CHUNG Report Released Date/Time: May 19, 2023 06:46 AM Reporting Lab: [address] [address] Performing Lab: [address] [phone] PROTEIN,TOTAL 6.4 g/dL 6.0-8.3 ALBUMIN 3.9 g/dL 3.5-5.0 ALKALINE PHOSPHATASE 58 U/L 40-150 AST 12 U/L 5-34 ALT 23 U/L BILIRUBIN, TOTAL 0.6 mg/dL 0.2-1.2 Nov 11, 2023 12:55 PM [facility] BASIC METABOLIC PANEL (fasting) SERUM Specime n Type: SERUM No comment entered. Ordering Provider: MARTA CHUNG Report Released Date/Time: May 19, 2023 06:46 AM Reporting Lab: [address] [phone] Performing Lab: [address] [address] UREA NITROGEN 18 mg/dL 7-25 GLUCOSE 89 mg/dL 65-100 SODIUM 141 mmol/L 135-145 POTASSIUM 4.3 mmol/L 3.5-5.0 CHLORIDE 108 mmol/L 100-110 CO2 24 meq/L 20-30 CREATININE, Serum 0.81 mg/dL 0.50-1.40 eGFR(CKD-EPI 2020) >90 mL/min >60 Social History: Smoking Status (Most current) and Tobacco Use (All prior to encounter date) This section includes the most current, and the historical, smoking and tobacco- related health factors from the [place] facility where the Encounter took place. Current Smoking Status This section includes the most current smoking, or tobacco-related health factor, from the [place] facility where the Encounter took place. Date/Time Current Smoking Status Comment Jose Luis [email or web address] May 19, 2023 01:00 PM VA-TOBACCO QUIT 5 TO < 15 YRS [facility] Tobacco Use History This section includes a history of the smoking, or tobacco-related health factors, that were collected on or before the date of the Encounter. The data comes from the [place] facility where the Encounter took place. Date/Time Smoking Status/Tobacco Use Comment F acility May 19, 2023 01:00 PM VA-TOBACCO QUIT 5 TO < 15 YRS [facility] Apr 16, 2022 11:30 AM VA-TOBACCO DOESNT USE WI 30 MIN [place] Apr 16, 2022 11:30 AM VA-TOBACCO USE > 1 5 LESS THAN 30 YEARS [facility] Apr 16, 2022 11:30 AM VA-TOBACCO USE ADVICE [facility] Apr 16, 2022 11:30 AM VA-TOBACCO USE MOLDING FITTER NO [place] Apr 16, 2022 11:30 AM VA-TOBACCO USE MED [facility] Apr 16, 2022 11:30 AM VA-TOBACCO USER EVERY DAY [facility] May 14, 2021 03:00 PM VA-TOBACCO DOESNT USE WI 30 MIN [place] May 14, 2021 03:00 PM VA-TOBACCO USE 5 TO 15 YEARS [facility] May 14, 2021 03:00 PM VA-TOBACCO USE ADVICE [facility] May 14, 2021 03:00 PM VA-TOBACCO USE MOLDING FITTER NO [facility] May 14, 2021 03:00 PM VA-TOBACCO USE MED NO [facility] May 14, 2021 03:00 PM VA-TOBACCO USER EVERY DAY [facility] Mar 20, 2019 09:35 AM VA-TOBACCO FORMER USER [facility] Mar 20, 2019 09:35 AM VA-TOBACCO QUIT 15 YRS OR MORE [facility] Jan 18, 2018 03:25 PM CURRENT SMOKER Vape 3mg, Quit cigarettes 08/2017 DA[place] Mar 29, 2017 11:16 AM CURRENT SMOKER 1 pack daily since 17yrs old [facility] Mar 29, 2017 11:16 AM V1-PT NOT INTEREST ED IN QUIT TOBACCO USE [facility] Jan 31, 2014 01:23 PM CURRENT SMOKER smokes one ppd of cigaretts DANA Jan 31, 2014 01:23 PM V1-PT DECLINES REF TO TOBACCO CESS [facility] Jan 31, 2014 01:23 PM V1-PT DECLINES TOB ACCO CESSATION [facility] Jan 31, 2014 01:23 PM V1-PT NOT INTEREST ED IN QUIT TOBACCO USE [facility] Oct 05, 2012 02:46 PM CURRENT SMOKER Pt. stated he smokes a pack a day. [facility]NA Oct 05, 2012 02:46 PM V1-PT DECLINES REF TO TOBACCO CESS [facility] Oct 05, 2012 02:46 PM V1-PT DECLINES TOB ACCO CESSATION [facility] Oct 05, 2012 02:46 PM V1-PT NOT INTEREST ED IN QUIT TOBACCO USE [facility] Jan 16, 2009 11:29 AM CURRENT SMOKER 1 ppd x 10yrs DANA September 10, 2008 01:18 PM V1-PT DECLINES REF TO TOBACCO CESS [facility] September 10, 2008 01:18 PM V1-PT DECLINES TOB ACCO CESSATION [facility] September 10, 2008 01:18 PM V1-PT THINKING ABO UT QUIT TOBACCO USE DANA Nov 13, 2007 10:09 AM CURRENT SMOKER 1 ppd DANA Nov 13, 2007 10:09 AM V1-PT DECLINES REF TO TOBACCO CESS [facility] Nov 13, 2007 10:09 AM V1-PT DECLINES TOB ACCO CESSATION [facility] Nov 13, 2007 10:09 AM V1-PT NOT INTEREST ED IN QUIT TOBACCO USE DANA Feb 17, 2007 09:42 AM V1-PT DECLINES REF TO TOBACCO CESS [facility] Feb 17, 2007 09:42 AM V1-PT READY TO GE T TOBACCO USE [facility] Nov 21, 2006 10:49 AM CURRENT SMOKER JAMIE KIERSTEN Oct 07, 2005 03:08 PM CURRENT SMOKER JAMIE BURCH Radiology Reports: +/- 30 days of the [...] the Encounter. The data comes from all [place] treatment facilities. Date/Time Radiology Report Provider Source Oct 26, 2023 11:17 AM FLUOROSCOPIC HARPREET NCE OF NEEDLE/SPINE: SAVANNAH STEVEN [id number] -[id number] M Exm Date: OCT 26, 2023@11:17 Req Phys: TRACEE GORDON Pat Loc: [facility]/NO/MED REHAB/SPINE INJ (Re Img Loc: [facility]/BUILDING 1 Service: Unknown [facility] , (Case [id number] COMPLETE) FLUOROSCOPIC GUIDANCE OF NEEDLE/S(RAD Detailed) CPT:01363 Reason for Study: transforaminal epidural steroid injection Clinical History: Report Status: Verified Date Reported: NOV 10, 2023 Date Verified: NOV 10, 2023 Station Master E-Sig:/ES/MOLLY ELLIOTT JR Report: Study: Pain injection [...] Primary Interpreting Staff: MOLLY ELLIOTT JR, Radiologist (Station Master) /EAD MOLLY ELLIOTT JR [facility] Encounter Notes: All associated encounter notes This section contains the clinical notes associated to the Encounter. Date/Time Encounter Note(s) Provider Source Nov 17, 2023 03:21 PM ACCOUNTING OF DISC LOSURES NOTE: LOCAL TITLE: STATE PRESCRIPTION DRUG MONITORING PROGRAM STANDARD TITLE: ACCOUNTING OF DISCLOSURES NOTE DATE OF NOTE: NOV 17, 2023@15:21:52 ENTRY DATE: NOV 17, 2023@15:21:52 AUTHOR: JENNA LARRY EXP COSIGNER: MARTA CHUNG URGENCY: STATUS: COMPLETED This PDMP query was submitted by Jenna Larry on behalf of Marta Chung MD. The clinical justification for this PDMP query is to review controlled substances prescribed outside of the [place], and any additional information that may become available, as an important component of standard clinical care, and in accordance with [facility] policy. Patient information was shared with the PDMP [place]. The [place] prescriber, for which I am a delegate, will be alerted of these PDMP findings through co-signature of this progress note. No prescription(s) for controlled substances outside the [place] were found in the last 90 days. /clifford/ JENNA LARRY LPN PACT 10 Signed: 11/17/2023 15:22 /clifford/ MARTA CHUNG MD Primary Care Physician Cosigned: 11/17/2023 15:26 JENNA LARRY DANA Nov 17, 2023 02:29 PM PREVENTIVE MEDICIN E NURSING NOTE: LOCAL TITLE: CLINICAL REMINDERS/NURSING STANDARD TITLE: PREVENTIVE MEDICINE NURSING NOTE DATE OF NOTE: NOV 17, 2023@14:29 ENTRY DATE: NOV 17, 2023@14:29:11 AUTHOR: JENNA LARRY EXP COSIGNER: URGENCY: STATUS: COMPLETED Depression Screening: Perform PHQ-2 A PHQ-2 screen was performed. The score was 0 which is a negative screen for depression. Over the past two weeks, how often have you been bothered by the following problems? 1. Little interest or pleasure in doing things Not at all 2. Feeling down, depressed, or hopeless Not at all COVID-19 Immunization: Referred to another clinic for immunization (desired vaccine unavailable at this location) RHS Screen: RHS Screen Session Format: Face to Face Environmental Check Upon inquiry, the individual reports that the environment is safe to proceed. Informed Consent to Screen and Document The individual consents to proceed with screening. The individual consents to documentation of responses. PRIMARY SCREEN: In the past 12 months, how often did a current or former intimate partner (e.g., boyfriend, girlfriend, , , sexual partner): 1. Scream or curse at you Never 2. Insult or talk down to you Never 3. Threaten you with harm Never 4. Physically hurt you Never 5. Force or pressure you to have sexual contact against your will, or when you were unable to say no Never ?? The HITS tool (items 1-4 above) is [place] copyright protected by Honorio Holman MD, and the user has full rights to use it throughout the [place] system. PRIMARY SCREEN RESULT: The Primary Screen is NEGATIVE. The individual answered never to all forms of IPV above (i.e., answered never to all 5 items) The individual accepts education and/or resources: No EDUCATION: The individual indicated readiness to learn. Education offered during this session as noted above. The individual indicated understanding by asking relevant questions and making appropriate comments. No barriers to learning were observed or identified. /clifford/ JENNA LARRY LPN PACT 10 Signed: 11/17/2023 14:31 JENNA LARRY Nov 17, 2023 10:25 AM PHYSICIAN NOTE: LOCAL TITLE: MD NOTE STANDARD TITLE: PHYSICIAN NOTE DATE OF NOTE: NOV 17, 2023@10:25 ENTRY DATE: NOV 17, 2023@10:25:29 AUTHOR: MARTA CHUNG EXP COSIGNER: URGENCY: STATUS: COMPLETED HISTORY OF PRESENT ILLNESS: SAVANNAH STEVEN, is a 43 yo MALE [place], who presents at the [facility] for f/u to hypertension, hyperlipidemia, and weight check. Labs completed. Active problems - Computerized Problem List is the source for the followin. Hypertension 2. Sleep apnea 3. Back pain 4. Neuropathy 5. Former Smoker 6. Psoriasis 7. Morbid obesity The following VA and Non-VA meds were reconciled with patient: Active Outpatient Medications (including Supplies): Issue Date Status Last Fill Active Outpatient Medications Refills Expiration ======= 1) DULOXETINE HCL 60MG EC CAP Qty: 90 for ACTIVE Issu:05-19-23 90 days Sig: TAKE ONE CAPSULE BY Refills: 1 Last:11-07-23 MOUTH ONCE DAILY Expr:05-19-24 2) LISINOPRIL 10MG TAB Qty: 90 for 90 days ACTIVE Issu:05-02-23 Sig: TAKE ONE TABLET BY MOUTH ONCE Refills: 1 Last:11-02-23 DAILY TO CONTROL BLOOD PRESSURE Expr:05-02-24 3) NAPROXEN 500MG TAB Qty: 180 for 90 days ACTIVE Issu:05-19-23 Sig: TAKE ONE TABLET BY MOUTH TWICE Refills: 0 Last:08-09-23 DAILY TAKE WITH FOOD; FOR Expr:05-19-24 PAIN/INFLAMMATION/SWELLING 4) PREGABALIN 150MG ORAL CAP Qty: 60 for ACTIVE Issu:05-19-23 30 days Sig: TAKE ONE CAPSULE BY Refills: 1 Last:10-26-23 MOUTH TWICE DAILY FOR NERVE PAIN Expr:11-19-23 Start Date Active Non-VA Medications Refills Expiration ======= 1) Non-VA CHOLECALCIF 50MCG (D3-2,000UNIT) ACTIVE TAB SiUNIT BY MOUTH ONCE DAILY 5 Total Medications ALLERGIES: ========= Patient has answered [facility] LAB HISTORY: CHEM 7 TREND LAB CUMULATIVE SELECTED Collection DT Spec GLUCOSE BUN CREATIN Sodium K+/Pot CL CO2 11/11/2023 12:55 SERUM 89 18 0.81 141 4.3 108 24 05/12/2023 10:12 SERUM 98 12 0.79 140 4.6 108 24 11/16/2022 13:48 SERUM 99 14 0.79 141 4.5 107 25 05/13/2022 08:48 SERUM 95 18 0.77 140 4.3 106 28 12/31/2021 13:44 SERUM 93 14 0.98 141 4.7 107 28 LIPID PANEL TREND Collection DT Spec CHOL HDL CHO/HDL LDL-c TRIG 11/11/2023 12:55 SERUM 203 H 39 L 5.2 145 H 93 05/12/2023 10:12 SERUM 200 H 36 L 5.6 148 H 82 05/13/2022 08:48 SERUM 193 44 4.4 134 H 74 05/11/2021 09:26 SERUM 196 48 4.1 128 99 03/19/2020 09:17 SERUM 183 42 4.4 119 112 LIVER PANEL TREND Collection DT Spec AST ALT T BILI ALK LALY T. PROT ALBUMIN 11/11/2023 12:55 SERUM 12 23 0.6 58 6.4 3.9 05/12/2023 10:12 SERUM 17 24 0.5 54 6.6 4.1 05/13/2022 08:48 SERUM 13 17 0.6 59 6.7 4.0 05/11/2021 09:26 SERUM 13 28 0.8 48 6.5 3.9 03/19/2020 09:17 SERUM 15 29 0.6 55 6.7 3.9 HISTORY: PERIOD OF SERVICE - [facility] [employer] [facility] FROM Jun TO Jun COMBAT SERVICE INDICATED: No VITAL SIGNS: Blood Pressure 146/88 (11/17/2023 14:27)Repeat BP: 139/86 Pulse 68 (11/17/2023 14:27) Respiration 16 (11/17/2023 14:27) Pulse Oximetry 96% (11/17/2023 14:27) Temperature 98.3 F [36.8 C] (11/17/2023 14:27) Pain 0 (11/17/2023 14:27) Height 70 in [177.8 cm] (11/17/2023 14:27) Weight 357.6 lb [162.20 kg] (11/17/2023 14:27) BMI BMI: 51.4 REVIEW OF SYSTEMS: CARDIOVASCULAR: No chest pain RESPIRATORY: No SOB, no wheezing GASTROINTESTINAL: No abd pain, no N/V/D MUSCULOSKELETAL: No joint pain, no joint swelling NEUROLOGIC: No H/A, no numbness, no weakness EXAMINATION: GENERAL: WD/WN , pleasant & in NAD HEENT: Moist mucosa NECK: Supple, no carotid bruits HEART: RRR, S1-S2, no murmurs LUNGS: CTA B/L ABDOMEN: Soft, morbid obesity PERIPH PULSES: 2+ B/L EXTREMITIES: FROM x 4, no edema, gait normal ASSESSMENT/PLAN: 1. Hypertension: under acceptable control on lisinopril 10mg/day, advised him to track his BP at home 2. Hyperlipidemia: advised diet and lifestyle modifications Collection DT Spec CHOL HDL CHO/HDL LDL-c TRIG 11/11/2023 12:55 SERUM 203 H 39 L 5.2 145 H 93 05/12/2023 10:12 SERUM 200 H 36 L 5.6 148 H 82 05/13/2022 08:48 SERUM 193 44 4.4 134 H 74 3. Morbid Obesity: BMI ~53, counseled on weight loss 4. Right Foot Hammer Toe: 2nd digit, severe, very painful, unable to wear shoes, managed by podiatry, going to his pre-op tomorrow, will Rx tramadol 50-100mg QHS prn, #60, 0RF FOLLOW UP: 6 mths - AWE - [facility]W prior ========= UPCOMING APPOINTMENTS: 03/21/2024 13:30 [facility]/NO/MED REHAB/SPINE IN No barriers; Patient understands and agrees to [...] of active outpatient prescriptions dispensed from this [facility] (local) and dispensed from another VA or DoD facility (remote) as well as [...] list may not be complete. Please check JLV. Allergies/ADRs (Tool #5) FACILITY ALLERGY/ADR -------- [facility] No Known Allergies [facility] NO KNOWN ALLERGIES Med Recon NoGlossary (Tool #1) INCLUDED IN THIS LIST: Alphabetical list of active outpatient prescriptions dispensed from this VA (local) and dispensed from another VA or DoD facility (remote) as well as inpatient orders (local pending and active), local clinic medications, locally documented non-VA medications, and local prescriptions that have or been discontinued in the past 90 days. Non-VA Meds Last Documented On: Mar 29, 2018 NOTE The display of VA prescriptions dispensed from another VA or DoD facility (remote) is limited to active outpatient prescription entries matched to National Drug File at the originating site and may not include some items such as investigational drugs, compounds, etc. NOT INCLUDED IN THIS LIST: Medications self-entered by the patient into personal health records (i.e. [employer]) are NOT included in this list. Non-VA medications documented outside this VA, remote inpatient orders (regardless of status) and remote clinic medications are NOT included in this list. The patient and provider must always discuss medications the patient is taking, regardless of where the medication was dispensed or obtained. ------ [place] CHOLECALCIF 50MCG (D3-2,000UNIT) TAB TAKE TWO TABLETS BY MOUTH ONCE DAILY Patient wants to buy from Non-[place] pharmacy. OUTPT DULOXETINE HCL 60MG EC CAP (Status = Active) TAKE ONE CAPSULE BY MOUTH ONCE DAILY Rx# [id number] Last Released: 10/25/23 Qty/Days Supply: 90 Rx Expiration Date: 05/19/24 Refills Remainin Indication: FOR CHRONIC MUSCLE OR BONE PAIN OUTPT LISINOPRIL 10MG TAB (Status = Active) TAKE ONE TABLET BY MOUTH ONCE DAILY TO CONTROL BLOOD PRESSURE Rx# [id number] Last Released: 10/25/23 Qty/Days Supply: 90/90 Rx Expiration Date: 05/02/24 Refills Remainin OUTPT NAPROXEN 500MG TAB (Status = Active) TAKE ONE TABLET BY MOUTH TWICE DAILY TAKE WITH FOOD; FOR PAIN/INFLAMMATION/SWELLING Rx# [id number] Last Released: 07/27/23 Qty/Days Supply: 180/90 Rx Expiration Date: 05/19/24 Refills Remainin Indication: FOR PAIN OUTPT PREGABALIN 150MG ORAL CAP (Status = Active) TAKE ONE CAPSULE BY MOUTH TWICE DAILY FOR NERVE PAIN Rx# [id number] Last Released: 10/24/23 Qty/Days Supply: 60/30 Rx Expiration Date: 11/19/23 Refills Remainin Indication: FOR NERVE PAIN ------ SUPPLIES ------ Home Telehealth ([facility]HT) Referral: Patient not a candidate for [facility]T Program at this time. HTN Assess for Elevated BP>=140/90: Repeat blood pressure: 138/86 /es/ MARTA CHUNG MD Primary Care Physician Signed: 11/17/2023 15:25 MARTA CHUNG DANA
--- OUTSIDE RECORDS SUMMARY | 2024-09-18 11:57 | XMS_ITS | Patient Health Record ---
Author Organization [facility] Address [address] [place] [address] Care Team Providers Care Service And Repair Supervisor Name Role Phone Francisco HECK, Marta Primary Care Provider Edna Liang Unavailable [phone] Mauro Thibodeaux Unavailable [phone] Melani Tubbs Unavailable [phone] Allergies No Known Allergies Reason For Referral Diagnosis 1 Other hammer toe(s) (acquired), right foot (M20.41) Diagnosis 2 Arthritis of joint o f lesser toe, right (M19.071) Diagnosis 3 Subluxation of metat arsophalangeal joint of toe, initial encounter (S93.149A) Diagnosis 4 Pain in right toe(s) (M79.674) Referring Provider First Name Marta Referring Provider Last Name Francisco Referred Organization [facility] Referred Provider Edna Veloz Referred Address [address] [place], [place],[address], Referred Provider Specialty Podiatry Referral Priority Routine Medications Medication SIG (Take, Route, Fr equency, Duration) Notes Start Date End Date Status Naproxen 500 MG 1 tablet with food o r milk as needed Orally every 12 hrs Activ e DULoxetine HCl 60 MG 1 capsule Orally Once a day Active Pregabalin 150 MG 1 capsule in the juan david oli 1 to 3 hours before bedtime Orally Once a day Active Lisinopril 10 MG 1 tablet Orally Once a day Active Social History Tobacco Use: Social History Observation Description Date Details (start date - stop date) Never Smoker NA - NA Tobacco use other than smoking: Question Answer Notes Are you an other tobacco user? Yes V aping Tobacco Control (Standard) Question Answer Notes Tobacco use: Nonsmoker Additional Findings: Tobacco non-user Current no nsmoker AUDIT-C (Standard) Question Answer Notes Did you have a drink containing alcohol in the p ast year? No Points 0 Interpretation Negative Section Notes: pt admits to vaping pt admits to vaping pt admits to vaping Problems Problem Type SNOMED Code ICD Code Onset Dates Problem Status W/U Status Risk Notes Problem Acquired hammer toe of right foot (4544544740072407) Other hammer toe(s) (acquired), right foot (M20.41) Active confirmed Problem Localized, primary osteoarthritis of the ankle and/or foot (556335717) Arthritis of joint of lesser toe, right (M19.071) Active confirmed Vital Signs Height [id number] in 09/03/2024 Weight 350 lbs 09/03/2024 BMI 50.21 kg/m2 09/03/2024 Encounters Encounter Location Date Provider [facility] [address] [address] 10/17/2023 Mauro Carlos Eduardo Pain in right toe(s) M79.674 ; Other hammer toe(s) (acquired), right foot M20.41 ; Arthritis of joint of lesser toe, right M19.071 and Subluxation of metatarsophalangeal joint of toe, initial encounter S93.149A [facility] [address] [address] 11/18/2023 Melani Perica Pain in right toe(s) M79.674 ; Other hammer toe(s) (acquired), right foot M20.41 ; Arthritis of joint of lesser toe, right M19.071 and Subluxation of metatarsophalangeal joint of toe, initial encounter S93.149A [facility] [address] 09/03/2024 Ednalenora Veloz Pain in right toe(s) M79.674 ; Other hammer toe(s) (acquired), right foot M20.41 ; Arthritis of joint of lesser toe, right M19.071 and Subluxation of metatarsophalangeal joint of toe, initial encounter S93.149A [facility] [address] [place] [address] 09/03/2024 Edna Veloz [facility] [place] [address] [facility] [address] [place] [address] 10/17/2023 Maurosurendra OrtezCarlos Eduardo [facility] [address] [place] [address] 11/18/2023 Edna Veloz Assessments Encounter Date Diagnosis (ICD Code) Assessment Notes Treatment Notes Treatment Clinical Notes Section Notes 10/17/2023 Pain in right toe(s) (ICD-10 - M79.674) 10/17/2023 Other hammer toe(s) (acquired), right foot (ICD-10 - M20.41) 11/18/2023 Pain in right toe(s) (ICD-10 - M79.674) 11/18/2023 Other hammer toe(s) (acquired), right foot (ICD-10 - M20.41) 09/03/2024 Pain in right toe(s) (ICD-10 - M79.674) 09/03/2024 Other hammer toe(s) (acquired), right foot (ICD-10 - M20.41) 10/17/2023 Arthritis of joint o f lesser toe, right (ICD-10 - M19.071) 11/18/2023 Arthritis of joint o f lesser toe, right (ICD-10 - M19.071) 09/03/2024 Arthritis of joint o f lesser toe, right (ICD-10 - M19.071) 09/03/2024 Subluxation of metatarsophalangeal joint of toe, initial encounter (ICD-10 - S93.149A) 11/18/2023 Subluxation of metatarsophalangeal joint of toe, initial encounter (ICD-10 - S93.149A) 10/17/2023 Subluxation of metatarsophalangeal joint of toe, initial encounter (ICD-10 - S93.149A) Plan Of Treatment Pending Test Test Name Order Date X ray : Foot, right 3V 10/17/2023 Next Appt Details Provider Name:Edna springer, 09/26/2024 01:30:00 PM, [address] [place] [address], [phone], Provider Name:Edna Chet springer, 10/10/2024 01:30:00 PM, [address] [place] [address], [phone], Provider Name:Edna springer, 10/15/2024 01:30:00 PM, [address] [place] [address], [phone], Provider Name:Edna springer, 10/22/2024 01:30:00 PM, [address] [place] [address], [phone], Provider Name:Edna springer, 11/01/2024 01:30:00 PM, [address] [place] [address], [phone], Insurance Providers Payer Name Payer Address Payer Phone Subscriber Number Group Number Insured Name Patient Relationship to Insured Coverage Start Date Coverage End Date [employer]AC[employer] [address] [place] [address] [id number] Hector De La Paz Self - patient is the insured Medical (General) History Medical History History ICD Code Back pain - Sciatica High blood pressure Psoriasis/eczema Warts Chicken pox Sleep apnea
--- OUTSIDE RECORDS SUMMARY | 2024-09-18 11:58 | XMS_ITS | Encounter Summary ---
Author Name [facility] [place] Organization [facility] [place] Address [address] [place] [id number] Care Team Providers Care Senior Marketing Data Analyst Name Role Phone ERICKA CHUNG Primary Care [...] section includes the information on record at [place] for the Encounter. Date/Time Encounter Type Encounter Description Reason Provider Source Aug 21, 2024 01:00 PM [facility] IVNTJ GRP EA ADDL WEIGHT MGMT & MOVE! PROG - GRP ICD-10-CM E66.813 Obesity, class 3 WANG FELIZ Encounter Template Text not used by [place] Assessments - Encounter Diagnoses This section includes the primary and secondary diagnoses documented for the Encounter. Date/Time Primary/Secondary Diagnosis Diagnosis Name Provider Source Aug 21, 2024 04:05 PM PRIMARY Obesity, class 3 WANG FELIZ ([facility]) Aug 21, 2024 04:05 PM SECONDARY Body mass index [BMI] 45.0-49.9, adult WANG FELIZ ([facility]) Plan of Treatment: Future Appointments (+ 6 months) and Future Tests (+/- 45 days) The Plan of Treatment section includes future care activities for the patient from all [place] [facility]. This section includes future appointments and future orders which are active, pending or scheduled. Future Appointments This section includes appointments that were scheduled to occur 6 months from the date of the Encounter, up to a maximum of 20 appointments. The data comes from all [facility]. Appointment Date/Time Appointment Type Appointme nt Facility Name Aug 28, 2024 10:00 AM [facility] Aug 28, 2024 01:00 PM [facility] ([facility] Aug 28, 2024 02:00 PM [facility] August 30, 2024 01:00 PM [facility] September 03, 2024 02:00 PM [facility] September 25, 2024 02:30 PM [facility] Dec 10, 2024 02:00 PM AMBULATORY MEDICINE [facility] Active, Pending, and Scheduled Orders This section includes a listing of several types of active, pending, and scheduled orders, including clinic medications orders, diagnostic test orders, procedure orders and consult orders; where the start date of the order is 45 days before the date of the Encounter or 45 days after the date of theEncounter. The data comes from all [facility]. Test Date/Time Test Type Test Details Facility Name Aug 28, 2024 08:39 AM Consult Order [facility] Cons [employer] [facility] Lab Results: +/- 30 days of the encounter This section includes the Chemistry and Hematology Lab Results on record with [place] for the patient. Radiology Reports and Pathology Reports are provided separately, in subsequent sections. Lab Results This section contains the Chemistry/Hematology Results that were resulted 30 days before or 30 daysafter the date of the Encounter. Date/Time Source Result Type Result - Unit Interpretation Reference Range Specimen Type Comment Aug 22, 2024 09:09 AM [facility] BASIC METABOLIC PANEL (fasting) SERUM Specime n Type: SERUM No comment entered. Ordering Provider: ERICKA CHUNG Report Released Date/Time: Jul 18, 2024 03:45 PM Reporting Lab: [facility] [address] [address] Performing Lab: [facility] [address] [facility] [address] UREA NITROGEN 18 mg/dL 9-21 GLUCOSE 94 mg/dL 65-100 SODIUM 139 mmol/L 136-145 POTASSIUM 4.4 mmol/L 3.5-5.1 CHLORIDE 106 mmol/L 98-107 CO2 25 meq/L 22-29 CALCIUM 9.0 mg/dL 8.4-10.2 CREATININE, Serum 0.77 mg/dL 0.72-1.25 eGFR(CKD-EPI 2020) >90 mL/min >60 Aug 22, 2024 09:09 AM [facility] CBC AND DIFF (AUTO) BLOOD Specimen Type: BLOO D No comment entered. Ordering Provider: ERICKA CHUNG Report Released Date/Time: Jul 18, 2024 03:45 PM Reporting Lab: [facility] [address] [address] Performing Lab: [address] [address] WBC 6.93 10*3/uL 4.50-11.00 RBC 4.27 10*6/uL [...] 0.0 0.0-0.0 NRBC, ABS 0.00 10*3/uL 0.00-0.00 Vital Signs: All taken on the encounter date This section contains inpatient and outpatient Vital Signs collected on the date of the Encounter. Date/Time Temperature Pulse Blood Pressure Respiratory Rate SP02 Pain Height Weight Body Mass Index Source Aug 21, 2024 03:14 PM 347.6 50 GREENFI ELD ([facility]) Encounter Notes: All associated encounter notes This section contains the clinical notes associated to the Encounter. Date/Time Encounter Note(s) Provider Source Aug 21, 2024 01:00 PM MOVE NOTE: LOCAL TITLE: WEIGHT MANAGEMENT/MOVE! OUTPATIENT GROUP NOTE STANDARD TITLE: MOVE NOTE DATE OF NOTE: AUG 21, 2024@13:00 ENTRY DATE: AUG 21, 2024@15:52:30 AUTHOR: WANG FELIZ COSIGNER: URGENCY: STATUS: COMPLETED Veterans participated in MOVE! Group Counseling via VVC on: 08/21/24 The [place] was provided with information on VVC and has given verbal consent to use group VVC services for their healthcare. The copy of the Group Telehealth Agreement has been mailed to the . The [place]'s location/emergency contact number were confirmed. The Emergency Call Relay Center (E911) was available. The visit was locked for security and privacy. [place] identified with 2 identifiers: [x] Full Name [x] Address Veterans attended the 60-minute MOVE! group session on this date via VVC or by phone. MOVE! is a program designed to provide education about weight management skills to overweight and obese veterans. Veterans submitted their stated weights to staff. The group facilitators began the session by reviewing the previous weeks topic (Get Fit For Life). Participants were asked to share their respective progress toward achieving their respective goals and to share their experiences with keeping a food and physical activity log over the past week. Positive feedback was given to the Veterans for their efforts. Session #6 (Take Charge of Your Weight) was then conducted using the MOVE! Workbook. Facilitators discussed how thoughts, feelings, and behavior work together to help or hinder weight-loss progress. Veterans recognized their unhelpful thoughts and learned steps to rethink them. Finally, participants were encouraged to explore how their emotions may be influencing unhealthy behaviors like overeating and inactivity. The objectives accomplished at todays session were: 1. Discussed the relationship between thoughts, feelings, and behavior. 2. Helped Veterans recognize unhelpful thoughts and how to rethink them. 3. Discussed how feelings (both physical and emotional) influence eating. Participants were asked to set one healthy eating and physical activity goal to work on this week, continue recording weight daily, to log all food and beverages consumed daily, and to also log all physical activities daily. They were instructed to continue to bring their completed Food and Physical Activity Logs to every session. The next [facility] MOVE! group meeting will be held on 08/28/24. Today's Weight: 347.6 lb Weight Loss of -4.4 lb from last visit Dx: Obesity, Class III E66.813, Z68.42 /es/ Wang Feliz, PhD Clinical Psychologist Signed: 08/21/2024 16:10 Receipt Acknowledged By: 08/21/2024 16:28 /clifford/ NELLY GARCIA RD,LDN STAFF DIETITIAN WANG FELIZ ([facility])
--- OUTSIDE RECORDS SUMMARY | 2024-09-18 11:58 | XMS_ITS | Encounter Summary ---
Author Name [facility] [place] Address [address] [place] [address] Care Team Providers Care Supervisor [employer] Name Role Phone ERICKA CHUNG Primary Care [...] section includes the information on record at [place] for the Encounter. Date/Time Encounter Type Encounter Description Reason Provider Source Aug 28, 2024 10:00 AM OFFICE O/P EST MOD 30 MIN PRIMARY CARE/MEDICINE ICD-10-CM Z01.818 Encounter for other preprocedural examination ERICKA CHUNG Encounter Template Text not used by [place] Assessments - Encounter Diagnoses This section includes the primary and secondary diagnoses documented for the Encounter. Date/Time Primary/Secondary Diagnosis Diagnosis Name Provider Source Aug 28, 2024 10:22 AM PRIMARY Encounter for other preprocedural examination ERICKA CHUNG Aug 28, 2024 10:22 AM SECONDARY Essential (primary) hypertension ERICKA CHUNG Aug 28, 2024 10:22 AM SECONDARY Morbid (severe) obesity due to excess calories ERICKA CHUNG Plan of Treatment: Future Appointments (+ 6 months) and Future Tests (+/- 45 days) The Plan of Treatment section includes future care activities for the patient from all [place] [facility]. This section includes future appointments and future orders which are active, pending or scheduled. Future Appointments This section includes appointments that were scheduled to occur 6 months from the date of the Encounter, up to a maximum of 20 appointments. The data comes from all [facility]. Appointment Date/Time Appointment Type Appointme nt Facility Name August 30, 2024 01:00 PM AMBULATORY - [facility]INE [facility] September 03, 2024 02:00 PM AMBULATORY MEDICINE [facility] September 25, 2024 02:30 PM [facility]UL[facility] Dec 10, 2024 02:00 PM [facility] Active, Pending, and Scheduled Orders This section includes a listing of several types of active, pending, and scheduled orders, including clinic medications orders, diagnostic test orders, procedure orders and consult orders; where the start date of the order is 45 days before the date of the Encounter or 45 days after the date of theEncounter. The data comes from all [facility]. Test Date/Time Test Type Test Details Facility Name Aug 28, 2024 08:39 AM Consult Order COMMUNITY CARE-PODIATRY Cons [employer] Director's Choice [facility] Lab Results: +/- 30 days of the encounter This section includes the Chemistry and Hematology Lab Results on record with [place] for the patient. Radiology Reports and Pathology Reports are provided separately, in subsequent sections. Lab Results This section contains the Chemistry/Hematology Results that were resulted 30 days before or 30 daysafter the date of the Encounter. Date/Time Source Result Type Result - Unit Interpretation Reference Range Specimen Type Comment Aug 22, 2024 09:09 AM [facility] BASIC METABOLIC PANEL (fasting) SERUM Specime n Type: SERUM No comment entered. Ordering Provider: ERICKA CHUNG Report Released Date/Time: Jul 18, 2024 03:45 PM Reporting Lab: [address] [id number] Performing Lab: [address] [address] U[facility]A NITROGEN 18 mg/dL 9-21 GLUCOSE 94 mg/dL 65-100 SODIUM 139 mmol/L 136-145 POTASSIUM 4.4 mmol/L 3.5-5.1 CHLORIDE 106 mmol/L 98-107 CO2 25 meq/L 22-29 CALCIUM 9.0 mg/dL 8.4-10.2 CREATININE, Serum 0.77 mg/dL 0.72-1.25 eGFR(CKD-EPI 2020) >90 mL/min >60 Aug 22, 2024 09:09 AM [facility] CBC AND DIFF (AUTO) BLOOD Specimen Type: BLOO D No comment entered. Ordering Provider: ERICKA CHUNG Report Released Date/Time: Jul 18, 2024 03:45 PM Reporting Lab: [facility] [address] [facility] [id number] Performing Lab: [facility] [address] [facility] [id number] WBC 6.93 10*3/uL 4.50-11.00 RBC 4.27 10*6/uL [...] and tobacco- related health factors from the [place] facility where the Encounter took place. Current Smoking Status This section includes the most current smoking, or tobacco-related health factor, from the [place] facility where the Encounter took place. Date/Time Current Smoking Status Comment Facil ity Aug 28, 2024 10:00 AM VA-TOBACCO USE FORMER CIGARETTES [place] Tobacco Use History This section includes a history of the smoking, or tobacco-related health factors, that were collected on or before the date of the Encounter. The data comes from the [place] facility where the Encounter took place. Date/Time Smoking Status/Tobacco Use Comment F acility Aug 28, 2024 10:00 AM VA-TOBACCO USE ADVICE [place] Aug 28, 2024 10:00 AM VA-TOBACCO USE RECEP NO [place] Aug 28, 2024 10:00 AM VA-TOBACCO USE MOIRA RY DAY ENDS [place] Aug 28, 2024 10:00 AM VA-TOBACCO USE MOIRA RY DAY OTHER TYPE [place] Aug 28, 2024 10:00 AM VA-TOBACCO USE FOR EDDIE CIGARETTES [place] Aug 28, 2024 10:00 AM VA-TOBACCO USE MED [facility] May 19, 2023 01:00 PM VA-TOBACCO FORMER USER [place] May 19, 2023 01:00 PM VA-TOBACCO QUIT 5 TO < 15 YRS [place] Apr 16, 2022 11:30 AM VA-TOBACCO DOESNT USE WI 30 MIN WAKEUP [place] Apr 16, 2022 11:30 AM VA-TOBACCO USE > 1 5 LESS THAN 30 YEARS [place] Apr 16, 2022 11:30 AM VA-TOBACCO USE ADVICE [place] Apr 16, 2022 11:30 AM VA-TOBACCO USE RECEP NO [place] Apr 16, 2022 11:30 AM VA-TOBACCO USE MED [facility] Apr 16, 2022 11:30 AM VA-TOBACCO USER EVERY DAY [place] May 14, 2021 03:00 PM VA-TOBACCO DOESNT USE WI 30 MIN WAKEUP [place] May 14, 2021 03:00 PM VA-TOBACCO USE 5 TO 15 YEARS [place] May 14, 2021 03:00 PM VA-TOBACCO USE ADVICE [place] May 14, 2021 03:00 PM VA-TOBACCO USE RECEP NO [place] May 14, 2021 03:00 PM VA-TOBACCO USE MED NO [place] May 14, 2021 03:00 PM VA-TOBACCO USER EVERY DAY [place] Mar 20, 2019 09:35 AM VA-TOBACCO FORMER USER [place] Mar 20, 2019 09:35 AM VA-TOBACCO QUIT 15 YRS OR MORE [place] Jan 18, 2018 03:25 PM CURRENT SMOKER Vape 3mg, Quit cigarettes 08/2017 [place] Mar 29, 2017 11:16 AM CURRENT SMOKER 1 pack daily since 17yrs old [place] Mar 29, 2017 11:16 AM V1-PT NOT INTEREST ED IN QUIT TOBACCO USE [place] Jan 31, 2014 01:23 PM CURRENT SMOKER smokes one ppd of cigaretts [place] Jan 31, 2014 01:23 PM V1-PT DECLINES REF TO TOBACCO CESS [facility] Jan 31, 2014 01:23 PM V1-PT DECLINES TOB ACCO CESSATION [facility] Jan 31, 2014 01:23 PM V1-PT NOT INTEREST ED IN QUIT TOBACCO USE [place] Oct 05, 2012 02:46 PM CURRENT SMOKER Pt. stated he smokes a pack a day. [place] Oct 05, 2012 02:46 PM V1-PT DECLINES REF TO TOBACCO CESS [facility] Oct 05, 2012 02:46 PM V1-PT DECLINES TOB ACCO CESSATION [facility] Oct 05, 2012 02:46 PM V1-PT NOT INTEREST ED IN QUIT TOBACCO USE [place] Jan 16, 2009 11:29 AM CURRENT SMOKER 1 ppd x 10yrs [place] September 10, 2008 01:18 PM V1-PT DECLINES REF TO TOBACCO CESS [facility] September 10, 2008 01:18 PM V1-PT DECLINES TOB ACCO CESSATION [facility] September 10, 2008 01:18 PM V1-PT THINKING ABO UT QUIT TOBACCO USE [place] Nov 13, 2007 10:09 AM CURRENT SMOKER 1 ppd [place] Nov 13, 2007 10:09 AM V1-PT DECLINES REF TO TOBACCO CESS [facility] Nov 13, 2007 10:09 AM V1-PT DECLINES TOB ACCO CESSATION [facility] Nov 13, 2007 10:09 AM V1-PT NOT INTEREST ED IN QUIT TOBACCO USE [place] Feb 17, 2007 09:42 AM V1-PT DECLINES REF TO TOBACCO CESS [facility] [place] Feb 17, 2007 09:42 AM V1-PT READY TO GE T TOBACCO USE [place] Nov 21, 2006 10:49 AM CURRENT SMOKER JAMIE BURCH Oct 07, 2005 03:08 PM CURRENT SMOKER JAMIE BURCH Encounter Notes: All associated encounter notes This section contains the clinical notes associated to the Encounter. Date/Time Encounter Note(s) Provider Source Aug 28, 2024 10:15 AM PREVENTIVE MEDICIN E NURSING NOTE: LOCAL TITLE: CLINICAL REMINDERS/NURSING STANDARD TITLE: PREVENTIVE MEDICINE NURSING NOTE DATE OF NOTE: AUG 28, 2024@10:15 ENTRY DATE: AUG 28, 2024@10:15:53 AUTHOR: LUCIO ALFARO COSIGNER: URGENCY: STATUS: COMPLETED Advance Directive Screen MH AD: Patient does not have a completed advance directive on file at any facility, [place] or outside. S/he is not interested in completing one at this time. The patient received education about Advance Directives and written notification of his/her rights. Homelessness/Food Insecurity Screen: In the past 2 months, have you been living in stable housing that you own, rent, or stay in as part of a household? Yes - Living in stable housing. Are you worried or concerned that in the next 2 months you may NOT have stable housing that you own, rent, or stay in as part of a household? No - Not worried about housing near future The reports the following: Within the past 12 months, you worried whether your food would run out before you got money to buy more. Never true Within the past 12 months, the food you bought just didn't last and you didn't have money to get more. Never true Tobacco Use Screening: The patient is a former cigarette smoker. The patient uses other type(s) of tobacco every day. Other Tobacco Type(s) used: Electronic Nicotine Delivery System (ENDS) (e.g., e-cigarettes/vape pens) Patient was advised to stop smoking and/or using other tobacco products. Advised patient that a combination of behavioral counseling and FDA-approved cessation medications is the most effective way to ensure their success in stopping to smoke and/or using other tobacco products. The patient was not interested in additional information about behavioral counseling and other support strategies discussed. Informed patient that medications can help with cravings and withdrawal symptoms, and they greatly increase the chances of successfully stopping your tobacco use. The patient was not interested in a prescription for tobacco cessation medications. Influenza Immunization: Deferral / Refusal The patient declines to receive the recommended dose of seasonal influenza vaccine. Immunization: INFLUENZA, UNSPECIFIED FORMULATION Refusal Reason: PATIENT DECISION Patient refuses all immunization(s) in the FLU group Date Documented: 08/28/24 10:16 Alcohol Use Screen (AUDIT-C): Alcohol Screen: SCREEN FOR ALCOHOL (AUDIT-C) An alcohol screening test (AUDIT-C) was negative (score=1). 1. How often did you have a drink containing alcohol in the past year? Consider a drink to be a 12 ounce can or bottle of regular beer, 8 ounces of malt liquor, a 5 ounce glass of table wine, or a 1.5 ounce shot of liquor (like scotch, gin, or vodka). Monthly or less 2. How many drinks containing alcohol did you have on a typical day when you were drinking in the past year? One or two drinks 3. How often did you have six or more drinks on one occasion in the past year? Never COVID-19 Immunization: Refused Moderna Monovalent COVID-19 vaccine Immunization: COVID-19 (MODERNA), MRNA, LNP-S, PF, 50 MCG/0.5 ML (AGES 12+ YEARS) Refusal Reason: PATIENT DECISION Patient refuses all immunization(s) in the COVID-19 group Date Documented: 08/28/24 10:18 Sexual Orientation: The patient thinks of their sexual orientation as: Straight or Heterosexual /clifford/ LUCIO ALFARO LPN PACT 10 Signed: 08/28/2024 10:18 LUCIO ALFARO Aug 28, 2024 06:43 AM PHYSICIAN NOTE: LOCAL TITLE: MD NOTE STANDARD TITLE: PHYSICIAN NOTE DATE OF NOTE: AUG 28, 2024@06:43 ENTRY DATE: AUG 28, 2024@06:43:40 AUTHOR: ERICKA CHUNG COSIGNER: URGENCY: STATUS: COMPLETED HISTORY OF PRESENT ILLNESS: SAVANNAH STEVEN is a 44 yo MALE who presents at the [facility] for a pre-op medical clearance exam. 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 Active problems - Computerized Problem List is [...] : 08/31/24 CONTROL BLOOD PRESSURE Expr : 06/13/25 4) NAPROXEN 500MG TAB Qty: 180 for [...] DT Spec TSH 05/10/2024 10:26 SERUM 1.64 HISTORY: PERIOD OF SERVICE - [facility] [employer] FROM Jun TO Jun COMBAT SERVICE INDICATED: No VITAL SIGNS: Blood Pressure 137/88 (08/28/2024 10:14) Pulse 66 (08/28/2024 10:14) Respiration 18 (08/28/2024 10:14) Pulse Oximetry 99% (08/28/2024 10:14) Temperature 98.1 F [36.7 C] (08/28/2024 10:14) Pain 0 (08/28/2024 10:14) Height 70 in [177.8 cm] (08/28/2024 10:14) Weight 359.2 lb [162.93 kg] (08/28/2024 10:14) BMI BMI: 51.6 REVIEW OF SYSTEMS: ENT: No sore throat, [...] be performed by Edna Veloz DPM on 09/12/24 under MAC anesthesia at the [facility]. He is considered low risk for a [...] 12/10/24 - HTN/Lipids/WT - FBW prior ========= UPCOMING APPOINTMENTS: 08/28/2024 14:00 V01 PHONE [facility] PACT [facility] 02 08/30/2024 13:00 [facility] 1 12/10/2024 14:00 [facility] PACT 10 MD JACOBS No barriers; Patient understands and agrees to current treatment plan. If pt has any questions, concerns, or changes in current health status he/she will call or come in to the [facility]. Home Telehealth (CCHT) Referral: Patient not a candidate for CCHT Program at this time. Medication Reconciliation: Outpatient: Has the patient been [...] list may not be complete. Please check [employer]. Allergies/ADRs (Tool #5) FACILITY ALLERGY/ADR -------- [place] [facility] [place] [facility] No Known Allergies [facility] NO KNOWN ALLERGIES [facility] (Tool #1) INCLUDED IN THIS LIST: Alphabetical [...] display of [place] prescriptions dispensed from another [place] or [facility] facility (remote) is limited to active outpatient prescription entries matched to National Drug File at the originating site and may not include some items such as investigational drugs, compounds, etc. NOT INCLUDED IN THIS LIST: Medications self-entered by the patient into personal health records (i.e. [employer]) are NOT included in this list. Non-VA medications documented outside this [place], remote inpatient orders (regardless of status) and remote clinic medications are NOT included in this list. The patient and provider must always discuss medications the patient is taking, regardless of where the medication was dispensed or obtained. ------ Non-VA CHOLECALCIF 50MCG (D3-2,000UNIT) TAB TAKE TWO TABLETS BY MOUTH ONCE DAILY Patient wants to buy from Non-VA pharmacy. OUTPT DICLOFENAC NA 1% TOP GEL (Status = Active) APPLY 4 GRAMS TOPICALLY FOUR TIMES A DAY FOR JOINT PAIN FOR OSTEOARTHRITIS - USE DOSING CARD PROVIDED IN BOX Rx# [id number] Last Released: 07/18/24 Qty/Days Supply: 200/14 Rx Expiration Date: 06/30/25 Refills Remainin Indication: FOR JOINT PAIN OUTPT DULOXETINE HCL 60MG EC CAP (Status = Active) TAKE ONE CAPSULE BY MOUTH ONCE DAILY Rx# [id number] Last Released: 08/23/24 Qty/Days Supply: 90 Rx Expiration Date: 06/13/25 Refills Remainin Indication: FOR CHRONIC MUSCLE OR BONE PAIN OUTPT LISINOPRIL 10MG TAB (Status = Active) TAKE ONE TABLET BY MOUTH ONCE DAILY TO CONTROL BLOOD PRESSURE Rx# [id number] Last Released: 08/24/24 Qty/Days Supply: 90/90 Rx Expiration Date: 06/13/25 Refills Remainin OUTPT NAPROXEN 500MG TAB (Status = Discontinued) TAKE ONE TABLET BY MOUTH TWICE DAILY TAKE WITH FOOD; FOR PAIN/INFLAMMATION/SWELLING Rx# [id number] Last Released: 02/14/24 Qty/Days Supply: 180 Rx Expiration Date: 12/02/24 Refills Remainin Indication: FOR PAIN OUTPT NAPROXEN 500MG TAB (Status = Active) TAKE ONE TABLET BY MOUTH TWICE DAILY TAKE WITH FOOD; FOR PAIN/INFLAMMATION/SWELLING Rx# [id number] Last Released: 06/05/24 Qty/Days Supply: 180 Rx Expiration Date: 08/29/24 Refills Remainin Indication: FOR PAIN OUTPT PREGABALIN 150MG ORAL CAP (Status = Discontinued) TAKE ONE CAPSULE BY MOUTH TWICE DAILY FOR NERVE PAIN Rx# [id number] Last Released: 05/03/24 Qty/Days Supply: 60 Rx Expiration Date: 06/03/24 Refills Remainin Indication: FOR NERVE PAIN OUTPT PREGABALIN 150MG ORAL CAP (Status = Active) TAKE ONE CAPSULE BY MOUTH TWICE DAILY FOR NERVE PAIN Rx# [id number] Last Released: 07/23/24 Qty/Days Supply: 60 Rx Expiration Date: 12/01/24 Refills Remainin Indication: FOR NERVE PAIN OUTPT SEMAGLUTIDE WL 0.25MG/0.5ML PEN 0.5ML (Status = Active) INJECT 0.25MG SUBCUTANEOUSLY ONCE A WEEK Rx# [id number] Last Released: 08/07/24 Qty/Days Supply: 08/27 Rx Expiration Date: 09/01/24 Refills Remainin Indication: FOR WEIGHT LOSS ------ SUPPLIES ------ HIV Screening: Patient has been offered HIV testing and has declined. I have explained that HIV testing is recommended for all adults, even if all risk factors are absent. The patient was educated on the risk of delayed screening. Home Telehealth (CCHT) Referral: Patient not a candidate for CCHT Program at this time. /es/ ERICKA CHUNG MD Primary Care Physician Signed: 08/28/2024 10:45 ERICKA CHUNG
--- OUTSIDE RECORDS SUMMARY | 2024-09-18 11:58 | XMS_ITS | Encounter Summary ---
Author Name [facility] [place] [facility] [place] Address [address] [place] [id number] Care Team Providers Care Paper Carrier Name Role Phone ERICKA CHUNG Primary Care [...] section includes the information on record at [place] for the Encounter. Date/Time Encounter Type Encounter Description Reason Provider Source Aug 07, 2024 01:00 PM [facility] IVNTJ GRP EA ADDL WEIGHT MGMT & MOVE! PROG - GRP ICD-10-CM E66.813 Obesity, class 3 WANG FELIZ Encounter Template Text not used by [place] Assessments - Encounter Diagnoses This section includes the primary and secondary diagnoses documented for the Encounter. Date/Time Primary/Secondary Diagnosis Diagnosis Name Provider Source Aug 07, 2024 04:14 PM PRIMARY Obesity, class 3 WANG FELIZ ([facility]) Aug 07, 2024 04:14 PM SECONDARY Body mass index [BMI] 50.0-59.9, adult WANG FELIZ ([facility]) Plan of Treatment: Future Appointments (+ 6 months) and Future Tests (+/- 45 days) The Plan of Treatment section includes future care activities for the patient from all [place] [facility] This section includes future appointments and future orders which are active, pending or scheduled. Future Appointments This section includes appointments that were scheduled to occur 6 months from the date of the Encounter, up to a maximum of 20 appointments. The data comes from all [place] treatment [facility]. Appointment Date/Time Appointment Type Appointme nt Facility Name Aug 14, 2024 01:00 PM AMBULATORY - NONE [place] [facility] ([facility]) Aug 20, 2024 02:00 PM AMBULATORY - MEDICINE [place] [place] Aug 21, 2024 01:00 PM AMBULATORY - NONE [place] [facility] ([facility]) Aug 28, 2024 10:00 AM AMBULATORY - [place]ICINE [place] [place] [facility] Aug 28, 2024 01:00 PM AMBULATORY - NONE [place] ([facility]) Aug 28, 2024 02:00 PM AMBULATORY - [place]ICINE [place] [facility] August 30, 2024 01:00 PM AMBULATORY - MEDICINE [place] [facility] September 03, 2024 02:00 PM AMBULATORY - MEDICINE [place] [facility] September 25, 2024 02:30 PM AMBULATORY - MEDICINE [place] [facility] Dec 10, 2024 02:00 PM AMBULATORY - MEDICINE [place] [facility] Active, Pending, and Scheduled Orders This section includes a listing of several types of active, pending, and scheduled orders, including clinic medications orders, diagnostic test orders, procedure orders and consult orders; where the start date of the order is 45 days before the date of the Encounter or 45 days after the date of theEncounter. The data comes from all [facility]. Test Date/Time Test Type Test Details Facility Name Aug 28, 2024 08:39 AM Consult Order COMMUNITY CARE-PODIATRY Cons Planishing Press Operator's Choice [place] [facility] Lab Results: +/- 30 days of the encounter This section includes the Chemistry and Hematology Lab Results on record with [place] for the patient. Radiology Reports and Pathology Reports are provided separately, in subsequent sections. Lab Results This section contains the Chemistry/Hematology Results that were resulted 30 days before or 30 daysafter the date of the Encounter. Date/Time Source Result Type Result - Unit Interpretation Reference Range Specimen Type Comment Aug 22, 2024 09:09 AM [facility] BASIC METABOLIC PANEL (fasting) SERUM Specime n Type: SERUM No comment entered. Ordering Provider: ERICKA CHUNG Report Released Date/Time: Jul 18, 2024 03:45 PM Reporting Lab: [facility] [address] [facility] [id number] Performing Lab: [address] [address] UREA NITROGEN 18 mg/dL 9-21 GLUCOSE 94 mg/dL 65-100 SODIUM 139 mmol/L 136-145 POTASSIUM 4.4 mmol/L 3.5-5.1 CHLORIDE 106 mmol/L 98-107 CO2 25 meq/L 22-29 CALCIUM 9.0 mg/dL 8.4-10.2 CREATININE, Serum 0.77 mg/dL 0.72-1.25 eGFR(CKD-EPI 2020) >90 mL/min >60 Aug 22, 2024 09:09 AM [facility] CBC AND DIFF (AUTO) BLOOD Specimen Type: BLOO D No comment entered. Ordering Provider: ERICKA CHUNG Report Released Date/Time: Jul 18, 2024 03:45 PM Reporting Lab: [address] [address] Performing Lab: [address] [address] WBC 6.93 10*3/uL 4.50-11.00 RBC 4.27 10*6/uL [...] Height Weight Body Mass Index Source Aug 07, 2024 03:32 PM [address] [facility] ([facility]) Encounter Notes: All associated encounter notes This section contains the clinical notes associated to the Encounter. Date/Time Encounter Note(s) Provider Source Aug 07, 2024 01:00 PM MOVE NOTE: LOCAL TITLE: WEIGHT MANAGEMENT/MOVE! OUTPATIENT GROUP NOTE STANDARD TITLE: MOVE NOTE DATE OF NOTE: AUG 07, 2024@13:00 ENTRY DATE: AUG 07, 2024@15:59:35 AUTHOR: WANG FELZI EXP COSIGNER: URGENCY: STATUS: COMPLETED Veterans participated in MOVE! Group Counseling via VVC on: 08/07/2024. The [place] was provided with information on VVC and has given verbal consent to use group VVC services for their healthcare. The copy of the Group Telehealth Agreement has been mailed to the . The [place]'s location/emergency contact number were confirmed. The Emergency Call Relay Center (E911) was available. The visit was locked for security and privacy. identified with 2 identifiers: [x] Full Name [x] Address Veterans attended the 60-minute MOVE! group session on this date via VVC or phone. MOVE! is a program designed to provide education about weight management skills to overweight and obese veterans. Veterans submitted their stated weights to staff. The group facilitators began the session by reviewing the previous weeks topic (Eat Wisely). Participants were asked to share their respective progress toward achieving their respective goals and to share their experiences with keeping a food and physical activity log over the past week. Positive feedback was given to the Veterans for their efforts. Session #5 (Get Fit for Life) was then conducted using the MOVE! [place] Workbook. Facilitators reviewed the basics of being physically active. Veterans identified the different types of physical activity that interest them that work with their schedule. The 2018 Physical Activity Guidelines for Americans was reviewed, and Veterans compared their current activity with the recommended guidelines. The different measures of intensity and tips to start being active were shared. Veterans were ordered pedometers after the last session. Proper use and the benefits of the pedometer were discussed today, as well as daily step recommendations and how to create personal step goals. The objectives accomplished at todays session were: 1. Helped Veterans identify ways to get active that work for them. 2. Described the benefits of getting active. 3. Taught Veterans how to get fit. 4. Educated Veterans on proper use and benefits of pedometer Additional Materials Provided: Pedometer Participants were asked to set one healthy eating and physical activity goal to work on this week, continue recording weight daily, to log all food and beverages consumed daily, and to also log all physical activities daily. They were instructed to have their completed Food and Physical Activity Logs available every session. The next [facility] MOVE! group meeting will be held on 08/14/24. Today's Weight: 354 lb Weight Gain of + .0 lb from last visit Dx: Obesity, Class III E66.813, Z68.43 /es/ Wang Feliz, PhD Clinical Psychologist Signed: 08/07/2024 16:17 WANG FELIZ ([facility])
--- OUTSIDE RECORDS SUMMARY | 2024-09-18 11:58 | XMS_ITS | Encounter Summary ---
Author Name [facility] [place] [facility] [place] [facility] [place] Address [address] [place] [address] Care Team Providers Care Polystyrene Molding Machine Tender Name Role Phone MARTA CHUNG Primary Care [...] section includes the information on record at [place] for the Encounter. Date/Time Encounter Type Encounter Description Reason Pro vider Source Aug 28, 2024 09:00 AM Outpatient Encounter PRIMARY CARE/MEDICINE I[facility] Encounter Template Text not used by [place] Plan of Treatment: Future Appointments (+ 6 months) and Future Tests (+/- 45 days) The Plan of Treatment section includes future care activities for the patient from all [place] treatmentfacilities. This section includes future appointments and future orders which are active, pending or scheduled. Future Appointments This section includes appointments that were scheduled to occur 6 months from the date of the Encounter, up to a maximum of 20 appointments. The data comes from all [place] treatment facilities. Appointment Date/Time Appointment Type Appointme nt Facility Name August 30, 2024 01:00 PM [facility] [place] [facility] September 03, 2024 02:00 PM [facility]UL[facility]ORY MEDICINE [facility] September 25, 2024 02:30 PM AMBULATORY - MEDICINE [facility] Dec 10, 2024 02:00 PM AMBULATORY - MEDICINE [facility] Active, Pending, and Scheduled Orders This section includes a listing of several types of active, pending, and scheduled orders, including clinic medications orders, diagnostic test orders, procedure orders and consult orders; where the start date of the order is 45 days before the date of the Encounter or 45 days after the date of theEncounter. The data comes from all [place] treatment facilities. Test Date/Time Test Type Test Details Facility Name Aug 28, 2024 08:39 AM Consult Order COMMUNITY CARE-PODIATRY Cons Textile Colorist Dyer's Choice [facility] Lab Results: +/- 30 days of the encounter This section includes the Chemistry and Hematology Lab Results on record with [place] for the patient. Radiology Reports and Pathology Reports are provided separately, in subsequent sections. Lab Results This section contains the Chemistry/Hematology Results that were resulted 30 days before or 30 daysafter the date of the Encounter. Date/Time Source Result Type Result - Unit Interpretation Reference Range Specimen Type Comment Aug 22, 2024 09:09 AM [facility] BASIC METABOLIC PANEL (fasting) SERUM Specime n Type: SERUM No comment entered. Ordering Provider: MARTA CHUNG Report Released Date/Time: Jul 18, 2024 03:45 PM Reporting Lab: [address] [address] Performing Lab: [address] [address] UREA NITROGEN 18 mg/dL 9-21 GLUCOSE 94 mg/dL 65-100 SODIUM 139 mmol/L 136-145 POTASSIUM 4.4 mmol/L 3.5-5.1 CHLORIDE 106 mmol/L 98-107 CO2 25 meq/L 22-29 CALCIUM 9.0 mg/dL 8.4-10.2 CREATININE, Serum 0.77 mg/dL 0.72-1.25 eGFR(CKD-EPI 2020) >90 mL/min >60 Aug 22, 2024 09:09 AM [facility] CBC AND DIFF (AUTO) BLOOD Specimen Type: BLOO D No comment entered. Ordering Provider: MARTA CHUNG Report Released Date/Time: Jul 18, 2024 03:45 PM Reporting Lab: [facility] [address] [facility] [address] Performing Lab: [facility] [address] [facility] [address] WBC 6.93 10*3/uL 4.50-11.00 RBC 4.27 10*6/uL [...] and tobacco- related health factors from the [place] facility where the Encounter took place. Current Smoking Status This section includes the most current smoking, or tobacco-related health factor, from the [place] facility where the Encounter took place. Date/Time Current Smoking Status Comment Facil ity Aug 28, 2024 10:00 AM VA-TOBACCO USE EVERY DAY OTHER T YPE [facility] Tobacco Use History This section includes a history of the smoking, or tobacco-related health factors, that were collected on or before the date of the Encounter. The data comes from the [place] facility where the Encounter took place. Date/Time Smoking Status/Tobacco Use Comment F acility Aug 28, 2024 10:00 AM VA-TOBACCO USE ADVICE [facility] Aug 28, 2024 10:00 AM VA-TOBACCO USE AUTO BODY REPAIR ESTIMATOR NO [facility] Aug 28, 2024 10:00 AM VA-TOBACCO USE MOIRA RY DAY ENDS [facility] Aug 28, 2024 10:00 AM VA-TOBACCO USE MOIRA RY DAY OTHER TYPE [facility] Aug 28, 2024 10:00 AM VA-TOBACCO USE FOR EDDIE CIGARETTES [facility] Aug 28, 2024 10:00 AM VA-TOBACCO USE MED NO [facility] May 19, 2023 01:00 PM VA-TOBACCO FORMER USER [facility] May 19, 2023 01:00 PM VA-TOBACCO QUIT 5 TO < 15 YRS [facility] Apr 16, 2022 11:30 AM VA-TOBACCO DOESNT USE WI 30 MIN [place] [facility] Apr 16, 2022 11:30 AM VA-TOBACCO USE > 1 5 LESS THAN 30 YEARS [facility] Apr 16, 2022 11:30 AM VA-TOBACCO USE ADVICE [facility] Apr 16, 2022 11:30 AM VA-TOBACCO USE AUTO BODY REPAIR ESTIMATOR NO [facility] Apr 16, 2022 11:30 AM VA-TOBACCO USE MED NO [facility] Apr 16, 2022 11:30 AM VA-TOBACCO USER EVERY DAY [facility] May 14, 2021 03:00 PM VA-TOBACCO DOESNT USE WI 30 MIN [place] [facility] May 14, 2021 03:00 PM VA-TOBACCO USE 5 TO 15 YEARS [facility] May 14, 2021 03:00 PM VA-TOBACCO USE ADVICE [facility] May 14, 2021 03:00 PM VA-TOBACCO USE AUTO BODY REPAIR ESTIMATOR NO [facility] May 14, 2021 03:00 PM VA-TOBACCO USE MED NO [facility] May 14, 2021 03:00 PM VA-TOBACCO USER EVERY DAY [facility] Mar 20, 2019 09:35 AM VA-TOBACCO FORMER USER [facility] Mar 20, 2019 09:35 AM VA-TOBACCO QUIT 15 YRS OR MORE [facility] Jan 18, 2018 03:25 PM CURRENT SMOKER Vape 3mg, Quit cigarettes 08/2017 [facility] Mar 29, 2017 11:16 AM CURRENT SMOKER 1 pack daily since 17yrs old [facility] Mar 29, 2017 11:16 AM V1-PT NOT INTEREST ED IN QUIT TOBACCO USE [facility] Jan 31, 2014 01:23 PM CURRENT SMOKER smokes one ppd of cigaretts [facility] Jan 31, 2014 01:23 PM V1-PT DECLINES REF TO TOBACCO CESS [facility] Jan 31, 2014 01:23 PM V1-PT DECLINES TOB ACCO CESSATION [facility] Jan 31, 2014 01:23 PM V1-PT NOT INTEREST ED IN QUIT TOBACCO USE [facility] Oct 05, 2012 02:46 PM CURRENT SMOKER Pt. stated he smokes a pack a day. [facility] Oct 05, 2012 02:46 PM V1-PT DECLINES REF TO TOBACCO CESS [facility] Oct 05, 2012 02:46 PM V1-PT DECLINES TOB ACCO CESSATION [facility] Oct 05, 2012 02:46 PM V1-PT NOT INTEREST ED IN QUIT TOBACCO USE [facility] Jan 16, 2009 11:29 AM CURRENT SMOKER 1 ppd x 10yrs [facility] September 10, 2008 01:18 PM V1-PT DECLINES REF TO TOBACCO CESS [facility] September 10, 2008 01:18 PM V1-PT DECLINES TOB ACCO CESSATION [facility] September 10, 2008 01:18 PM V1-PT THINKING ABO UT QUIT TOBACCO USE [facility] Nov 13, 2007 10:09 AM CURRENT SMOKER 1 ppd [facility] Nov 13, 2007 10:09 AM V1-PT DECLINES REF TO TOBACCO CESS [facility] Nov 13, 2007 10:09 AM V1-PT DECLINES TOB ACCO CESSATION [facility] Nov 13, 2007 10:09 AM V1-PT NOT INTEREST ED IN QUIT TOBACCO USE [facility] Feb 17, 2007 09:42 AM V1-PT DECLINES REF TO TOBACCO CESS [facility] Feb 17, 2007 09:42 AM V1-PT READY TO GE T TOBACCO USE [facility] Nov 21, 2006 10:49 AM CURRENT SMOKER JAMIE BURCH Oct 07, 2005 03:08 PM CURRENT SMOKER JAMIE BURCH Encounter Notes: All associated encounter notes This section contains the clinical notes associated to the Encounter. Date/Time Encounter Note(s) Provider Source Aug 28, 2024 04:47 PM ACCOUNTING OF DISC LOSURES NOTE: LOCAL TITLE: STATE PRESCRIPTION DRUG MONITORING PROGRAM STANDARD TITLE: ACCOUNTING OF DISCLOSURES NOTE DATE OF NOTE: AUG 28, 2024@16:47:24 ENTRY DATE: AUG 28, 2024@16:47:24 AUTHOR: JENNA LARRY EXP COSIGNER: MARTA CHUNG URGENCY: STATUS: COMPLETED This PDMP query was submitted by Jenna Larry on behalf of Marta Chung MD. The clinical justification for this PDMP query is to review controlled substances prescribed outside of the [facility], and any additional information that may become available, as an important component of standard clinical care, and in accordance with [facility] policy. Patient information was shared with the PDMP [place]. The [facility] prescriber, for which I am a delegate, will be alerted of these PDMP findings through co-signature of this progress note. No prescription(s) for controlled substances outside the [facility] were found in the last 90 days. /clifford/ JENNA LARRY LPN PACT 10 Signed: 08/28/2024 16:47 /clifford/ MARTA CHUNG MD Primary Care Physician Cosigned: 08/28/2024 19:55 JENNA LARRY [facility]
--- OUTSIDE RECORDS SUMMARY | 2024-09-18 11:58 | XMS_ITS | Encounter Summary ---
Author Name [facility] ([place] Organization [facility] [place] [place] Address [address] [place] [address] Care Team Providers Care Carrot Harvester Name Role Phone ERICKA CHUNG Primary Care [...] section includes the information on record at OR for the Encounter. Date/Time Encounter Type Encounter Description Reason Provider Source Jun 12, 2024 03:30 PM OFFICE O/P EST MOD 30 MIN PRIMARY CARE/MEDICINE ICD-10-CM I10 Essential (primary) hypertension ERICKA CHUNG Encounter Template Text not used by [place] Assessments - Encounter Diagnoses This section includes the primary and secondary diagnoses documented for the Encounter. Date/Time Primary/Secondary Diagnosis Diagnosis Name Provider Source Jun 12, 2024 04:17 PM PRIMARY Essential (primary) hypertension ERICKA CHUNG Jun 12, 2024 04:17 PM SECONDARY Morbid (severe) obesity due to excess calories ERICKA CHUNG Jun 12, 2024 04:17 PM SECONDARY Pain in left knee ERICKA CHUNG Plan of Treatment: Future Appointments (+ 6 months) and Future Tests (+/- 45 days) The Plan of Treatment section includes future care activities for the [facility] This section includes future appointments and future orders which are active, pending or scheduled. Future Appointments This section includes appointments that were scheduled to occur 6 months from the date of the Encounter, up to a maximum of 20 appointments. The data comes from all [place] treatment facilities. Appointment Date/Time Appointment Type Appointme nt Facility Name Jun 20, 2024 01:30 PM AMBULATORY - MEDICINE [place] [facility] [place] [facility] Jul 10, 2024 01:00 PM AMBULATORY - NONE [facility] Jul 17, 2024 01:00 PM AMBULATORY - NONE [facility] Jul 24, 2024 01:00 PM AMBULATORY - NONE [facility] Jul 31, 2024 01:00 PM AMBULATORY - NONE [facility] Jul 31, 2024 01:30 PM AMBULATORY - MEDICINE [place] [facility] [place] [facility] Aug 07, 2024 01:00 PM AMBULATORY - NONE [facility] Aug 14, 2024 01:00 PM AMBULATORY - NONE [facility] Aug 20, 2024 02:00 PM [facility] Aug 21, 2024 01:00 PM AMBULATORY - NONE [facility] Aug 28, 2024 10:00 AM AMBULATORY - MEDICINE [place] [facility] [place] [facility] Aug 28, 2024 01:00 PM AMBULATORY - NONE [facility] Aug 28, 2024 02:00 PM AMBULATORY - MEDICINE [place] [facility] [place] [facility] August 30, 2024 01:00 PM AMBULATORY - MEDICINE [place] [facility] [place] [facility] September 03, 2024 02:00 PM AMBULATORY - MEDICINE [place] [facility] [place] [facility] September 25, 2024 02:30 PM AMBULATORY - MEDICINE [place] [facility] [place] [facility] Dec 10, 2024 02:00 PM AMBULATORY - MEDICINE [facility] [place] [facility] Active, Pending, and Scheduled Orders This section includes a listing of several types of active, pending, and scheduled orders, including clinic medications orders, diagnostic test orders, procedure orders and consult orders; where the start date of the order is 45 days before the date of the Encounter or 45 days after the date of theEncounter. The data comes from all [place] treatment facilities. Test Date/Time Test Type Test Details Facility Name Jun 19, 2024 12:00 AM Imaging - General Radiology Order KNEE 3 VIEWS (LEFT) [facility] [place] [facility] Social History: Smoking Status (Most current) and Tobacco Use (All prior to encounter date) This section includes the most current, and the historical, smoking and tobacco- related health factors from the [place] facility where the Encounter took place. Current Smoking Status This section includes the most current smoking, or tobacco-related health factor, from the [place] facility where the Encounter took place. Date/Time Current Smoking Status Comment Facil ity May 19, 2023 01:00 PM VA-TOBACCO FORMER USER [facility] Tobacco Use History This section includes a history of the smoking, or tobacco-related health factors, that were collected on or before the date of the Encounter. The data comes from the [place] facility where the Encounter took place. Date/Time Smoking Status/Tobacco Use Comment F acility May 19, 2023 01:00 PM VA-TOBACCO QUIT 5 TO < 15 YRS [facility] Apr 16, 2022 11:30 AM VA-TOBACCO DOESNT USE WI 30 MIN WAKEUP [facility] Apr 16, 2022 11:30 AM VA-TOBACCO USE > 1 5 LESS THAN 30 YEARS [facility] Apr 16, 2022 11:30 AM VA-TOBACCO USE ADVICE [facility] Apr 16, 2022 11:30 AM VA-TOBACCO USE RETOUCHER NO [facility] Apr 16, 2022 11:30 AM VA-TOBACCO USE MED [facility] Apr 16, 2022 11:30 AM VA-TOBACCO USER EVERY DAY [facility] May 14, 2021 03:00 PM VA-TOBACCO DOESNT USE WI 30 MIN WAKEUP [facility] May 14, 2021 03:00 PM VA-TOBACCO USE 5 TO 15 YEARS [facility] May 14, 2021 03:00 PM VA-TOBACCO USE ADVICE [facility] May 14, 2021 03:00 PM VA-TOBACCO USE RETOUCHER NO [facility] May 14, 2021 03:00 PM VA-TOBACCO USE MED NO [facility] May 14, 2021 03:00 PM VA-TOBACCO USER EVERY DAY [facility] Mar 20, 2019 09:35 AM VA-TOBACCO FORMER USER [facility] Mar 20, 2019 09:35 AM VA-TOBACCO QUIT 15 YRS OR MORE [facility] Jan 18, 2018 03:25 PM CURRENT SMOKER Vape 3mg, Quit cigarettes 08/2017 [facility] Mar 29, 2017 11:16 AM CURRENT SMOKER 1 pack daily since 17yrs old [facility] Mar 29, 2017 11:16 AM V1-PT NOT INTEREST ED IN QUIT TOBACCO USE [facility] Jan 31, 2014 01:23 PM CURRENT SMOKER smokes one ppd of cigaretts [facility] Jan 31, 2014 01:23 PM V1-PT DECLINES REF TO TOBACCO CESS [facility] Jan 31, 2014 01:23 PM V1-PT DECLINES TOB ACCO CESSATION [facility] Jan 31, 2014 01:23 PM V1-PT NOT INTEREST ED IN QUIT TOBACCO USE [facility] Oct 05, 2012 02:46 PM CURRENT SMOKER Pt. stated he smokes a pack a day. [facility] Oct 05, 2012 02:46 PM V1-PT DECLINES REF TO TOBACCO CESS [facility] Oct 05, 2012 02:46 PM V1-PT DECLINES TOB ACCO CESSATION [facility] Oct 05, 2012 02:46 PM V1-PT NOT INTEREST ED IN QUIT TOBACCO USE [facility] Jan 16, 2009 11:29 AM CURRENT SMOKER 1 ppd x 10yrs [facility] September 10, 2008 01:18 PM V1-PT DECLINES REF TO TOBACCO CESS [facility] September 10, 2008 01:18 PM V1-PT DECLINES TOB ACCO CESSATION [facility] September 10, 2008 01:18 PM V1-PT THINKING ABO UT QUIT TOBACCO USE [facility] Nov 13, 2007 10:09 AM CURRENT SMOKER 1 ppd [facility] Nov 13, 2007 10:09 AM V1-PT DECLINES REF TO TOBACCO CESS [facility] Nov 13, 2007 10:09 AM V1-PT DECLINES TOB ACCO CESSATION [facility] Nov 13, 2007 10:09 AM V1-PT NOT INTEREST ED IN QUIT TOBACCO USE [facility] Feb 17, 2007 09:42 AM V1-PT DECLINES REF TO TOBACCO CESS [facility] Feb 17, 2007 09:42 AM V1-PT READY TO GE T TOBACCO USE [facility] Nov 21, 2006 10:49 AM CURRENT SMOKER [facility] Oct 07, 2005 03:08 PM CURRENT SMOKER [facility] Encounter Notes: All associated encounter notes This section contains the clinical notes associated to the Encounter. Date/Time Encounter Note(s) Provider Source Jun 12, 2024 02:30 PM PHYSICIAN NOTE: LOCAL TITLE: MD NOTE STANDARD TITLE: PHYSICIAN NOTE DATE OF NOTE: JUN 12, 2024@14:30 ENTRY DATE: JUN 12, 2024@14:30:51 AUTHOR: ERICKA CHUNG EXP COSIGNER: URGENCY: STATUS: COMPLETED NOTE Has ADDENDA HISTORY OF PRESENT ILLNESS: SAVANNAH STEVEN is a 44 yo MALE who presents at the [facility] for his annual wellness exam. Labs completed. Active problems - Computerized Problem List is the source for the followin. Hypertension 2. Sleep apnea 3. Back pain 4. Neuropathy 5. Former Smoker 6. Psoriasis 7. Morbid obesity The following VA and Non-VA meds were reconciled with patient: Active Outpatient Medications (including Supplies): Issue Date Status Last Fill Active Outpatient Medications Refills Expiration 1) NAPROXEN 500MG TAB Qty: 180 for 90 days Sig: ACTIVE Issue: 05/31/24 TAKE ONE TABLET BY MOUTH TWICE DAILY TAKE Refills: 0 Last : 05/31/24 WITH FOOD; /INFLAMMATION/SWELLING Expr : 08/29/24 Indication: FOR PAIN 2) PREGABALIN 150MG ORAL CAP Qty: 60 for 30 ACTIVE Issue: 05/31/24 days Sig: TAKE ONE CAPSULE BY MOUTH TWICE Refills: 2 Last : 06/01/24 DAILY Expr : 12/01/24 Indication: FOR NERVE PAIN Start Date Active Non-VA Medications Status Stop Date 1) Non-VA CHOLECALCIF 50MCG (D3-2,000UNIT) TAB ACTIVE SiUNIT BY MOUTH ONCE DAILY 3 Total Medications ALLERGIES: ========= Patient has answered NKA LAB HISTORY: CHEM 7 TREND Collection DT Spec GLUCOSE BUN CREATIN Sodium K+/Pot CL CO2 05/10/2024 10:26 SERUM 106 H 16 0.84 138 4.9 105 27 11/11/2023 12:55 SERUM 89 18 0.81 141 4.3 108 24 05/12/2023 10:12 SERUM 98 12 0.79 140 4.6 108 24 11/16/2022 13:48 SERUM 99 14 0.79 141 4.5 107 25 05/13/2022 08:48 SERUM 95 18 0.77 140 4.3 106 28 CBC TREND Collection DT Spec WBC RBC HGB HCT MCV MCH PLT 05/10/2024 10:26 BLOOD 8.39 4.49 13.7 41.3 92.0 30.5 283 05/12/2023 10:12 BLOOD 6.96 4.37 13.4 40.4 92.4 30.7 275 05/13/2022 08:48 BLOOD 8.47 4.28 12.9 39.5 92.3 30.1 256 05/11/2021 09:26 BLOOD 13.70 H 4.17 L 13.1 40.2 96.4 31.4 300 03/19/2020 09:17 BLOOD 7.82 4.37 13.5 41.4 94.7 30.9 239 HEMOGLOBIN A1C TREND Collection DT Spec HGBA1c [...] 1.64 ========= HISTORY: PERIOD OF SERVICE - [facility] [employer] FROM Jun TO Jun COMBAT SERVICE INDICATED: No VITAL SIGNS: Blood Pressure 133/80 (06/12/2024 16:11) Pulse 87 (06/12/2024 15:54) Respiration 18 (06/12/2024 15:54) Pulse Oximetry 87% (06/12/2024 15:54) Temperature 97.7 F [36.5 C] (06/12/2024 15:54) Pain 0 (06/12/2024 15:54) Height 70 in [177.8 cm] (06/12/2024 15:54) Weight 371.2 lb [168.37 kg] (06/12/2024 15:54) BMI BMI: 53.4 REVIEW OF SYSTEMS: ENT: No sore throat, no cough CARDIOVASCULAR: No chest pain, no palps RESPIRATORY: No SOB, no wheezing GASTROINTESTINAL: No abd pain, no N/V/D GENITOURINARY: No urinary symptoms MUSCULOSKELETAL: +left knee pain posteriorly PSYCHIATRIC: No anxiety, no depression NEUROLOGIC: No H/A, no numbness, no weakness EXAMINATION: GENERAL: WD/WN in NAD HEENT: Moist mucosa NECK: Supple, no carotid bruits HEART: RRR, S1-S2, no murmurs LUNGS: CTA B/L ABDOMEN: Soft, NT/ND, obese EXTREMITIES: FROM x 4, no edema NEUROLOGIC: AAO x3, no focal findings PSYCHIATRIC: Good eye contact, affect normal ASSESSMENT/PLAN: Adult Annual General Wellness Exam -advised eye exams yearly and dental exams Q6 mths -advised heart healthy well balanced diet and lifestyle habits -advised regular CV exercise for 30 mins on most days of the week 1. Hypertension: under good control on lisinopril 10mg/day 2. Hyperlipidemia: advised diet and lifestyle modifications Collection DT Spec CHOL HDL CHO/HDL LDL-c TRIG 05/10/2024 10:26 SERUM 215 H 37 L 5.8 156 H 109 3. Morbid Obesity: BMI ~53, discussed Ozempic (semaglutide) for weight loss which he is interested in, will place a pharmacy consult for this 4. Sleep Apnea: dxed 2014, compliant with CPAP 5. Former Smoker: quit cigs 08/2017, still vaping, counseled to quit 6. Psoriasis and Atopic Dermatitis: B/L hands, on Triamcinolone 0.5% cream BID prn, advised liquid band-aid for splits in his skin on his fingertips 7. Left Knee Pain: present x 1 year, located posterior to knee joint, no hx of trauma, unable to fully flex knee joint, he does participate in laborious heavy lifting activities regularly, will order Xray to R/O Landa's cyst, will refer to PT for eval/tx as deemed appropriate FOLLOW UP: 6 mths - HTN/Lipids/WT - FBW prior ========= No barriers; Patient understands and agrees to current treatment plan. If pt has any questions, concerns, or changes in current health status he/she will call or come in to the VA. BMI>30/>24.99 High Risk: Patient declines to discuss weight management. Patient declined weight discussion. Discussed revisiting at a future visit. Home Telehealth ([facility]HT) Referral: Patient not a [...] [facility] No Known Allergies [facility] NO KNOWN ALLERGIES Med Recon NoGlossary (Tool #1) INCLUDED IN THIS LIST: Alphabetical list of active outpatient prescriptions dispensed from this OR (local) and dispensed from another OR or DoD facility (remote) as well as [...] the patient into personal health records (i.e. [employer]) are NOT included in this list. Non-VA medications documented outside this OR, remote inpatient orders (regardless of status) and remote clinic medications are NOT included in this list. The patient and provider must always discuss medications the patient is taking, regardless of where the medication was dispensed or obtained. ---- Non-VA CHOLECALCIF 50MCG (D3-2,000UNIT) TAB TAKE TWO TABLETS BY MOUTH ONCE DAILY Patient wants to buy from Non-OR pharmacy. OUTPT DULOXETINE HCL 60MG EC CAP (Status = ) TAKE ONE CAPSULE BY MOUTH ONCE DAILY Rx# [id number] Last Released: 01/23/24 Qty/Days Supply: Rx Expiration Date: 05/19/24 Refills Remainin Indication: FOR CHRONIC MUSCLE OR BONE PAIN OUTPT LISINOPRIL 10MG TAB (Status = ) TAKE ONE TABLET BY MOUTH ONCE DAILY TO CONTROL BLOOD PRESSURE Rx# [id number] Last Released: 01/23/24 Qty/Days Supply: 90 Rx Expiration Date: 05/02/24 Refills Remainin OUTPT NAPROXEN 500MG TAB (Status = Discontinued) TAKE ONE TABLET BY MOUTH TWICE DAILY TAKE WITH FOOD; FOR PAIN/INFLAMMATION/SWELLING Rx# [id number] Last Released: 02/14/24 Qty/Days Supply: 180/ Rx Expiration Date: 12/02/24 Refills Remainin Indication: FOR PAIN OUTPT NAPROXEN 500MG TAB (Status = Active) TAKE ONE TABLET BY MOUTH TWICE DAILY TAKE WITH FOOD; FOR PAIN/INFLAMMATION/SWELLING Rx# [id number] Last Released: 06/05/24 Qty/Days Supply: 180/ Rx Expiration Date: 08/29/24 Refills Remainin Indication: FOR PAIN OUTPT PREGABALIN 150MG ORAL CAP (Status = Discontinued) TAKE ONE CAPSULE BY MOUTH TWICE DAILY FOR NERVE PAIN Rx# [id number] Last Released: 05/03/24 Qty/Days Supply: Rx Expiration Date: 06/03/24 Refills Remainin Indication: FOR NERVE PAIN OUTPT PREGABALIN 150MG ORAL CAP (Status = Active) TAKE ONE CAPSULE BY MOUTH TWICE DAILY FOR NERVE PAIN Rx# [id number] Last Released: 06/05/24 Qty/Days Supply: 60 Rx Expiration Date: 12/01/24 Refills Remainin Indication: FOR NERVE PAIN ---- SUPPLIES ---- /es/ ERICKA CHUNG MD Primary Care Physician Signed: 06/12/2024 23:02 06/29/2024 ADDENDUM STATUS: COMPLETED Called and spoke to regarding Xray results of left knee performed 06/27/24: HISTORY: left knee pain posteriorly TECHNIQUE: 3 views of the left knee, [facility] to the [facility] ([facility] for interpretation. Impression: There are [id number] degenerative changes of the left knee with osteophyte formation and mild to moderate narrowing of the medial joint compartment. No evidence of acute fracture or dislocation. No significant joint effusion is identified. There is mild lateral tracking of the patella. No definite soft tissue abnormality is appreciated on plain radiographs. PLAN: ==== He did not respond to PT outreach attempts. He is willing to trial Diclofenac gel QID. Will place physiatry consult for CSI. /clifford/ ERICKA CHUNG MD Primary Care Physician Signed: 06/29/2024 16:06 ERICKA CHUNG
--- OUTSIDE RECORDS SUMMARY | 2024-09-18 11:58 | XMS_ITS ---
Author Name [facility] [place] Organization [place] Address [address] [place] [address] Care Team Providers Care Director Of Analytical Development Name Role Phone ERICKA CHUNG Primary Care [...] Type Encounter Description Reason Pro vider Source Mar 21, 2024 01:30 PM Outpatient Encounter PM&RS PHYSICIAN IHE Encounter Template Text not used by [place] Plan of Treatment: Future Appointments (+ 6 months) and Future Tests (+/- 45 days) The Plan of Treatment section includes future care activities for the patient from all [place] treatmentfacilities. This section includes future appointments and future orders which are active, pending or scheduled. Future Appointments This section includes appointments that were scheduled to occur 6 months from the date of the Encounter, up to a maximum of 20 appointments. The data comes from all [place] treatment facilities. Appointment Date/Time Appointment Type Appointme nt Facility Name Jun 12, 2024 03:30 PM [facility] Jun 20, 2024 01:30 PM AMBULATORY - MEDICINE [place] [facility] [place] [facility] Jul 10, 2024 01:00 PM AMBULATORY - NONE [facility] Jul 17, 2024 01:00 PM AMBULATORY - NONE [facility] Jul 24, 2024 01:00 PM AMBULATORY - NONE [facility] Jul 31, 2024 01:00 PM AMBULATORY - NONE [facility] Jul 31, 2024 01:30 PM AMBULATORY - MEDICINE [place] [facility] [place] [facility] Aug 07, 2024 01:00 PM AMBULATORY - NONE [facility] Aug 14, 2024 01:00 PM AMBULATORY - NONE [facility] Aug 20, 2024 02:00 PM AMBULATORY - MEDICINE [facility] Aug 21, 2024 01:00 PM AMBULATORY - NONE [facility] Aug 28, 2024 10:00 AM AMBULATORY - MEDICINE [place] [facility] [place] [facility] Aug 28, 2024 01:00 PM AMBULATORY - NONE [facility] Aug 28, 2024 02:00 PM AMBULATORY - MEDICINE [place] [facility] [place] [facility] August 30, 2024 01:00 PM AMBULATORY - MEDICINE [place] [facility] [place] [facility] September 03, 2024 02:00 PM AMBULATORY - MEDICINE [facility] [place] [facility] Vital Signs: All taken on the encounter date This section contains inpatient and outpatient Vital Signs collected on the date of the Encounter. Date/Time Temperature Pulse Blood Pressure Respiratory Rate SP02 Pain Height Weight Body Mass Index Source Mar 21, 2024 02:11 PM 62 142/90 20 98 4 [place] [facility] [place] [facility] Mar 21, 2024 01:35 PM 70 148/88 20 98 6 [place] [facility] [place] [facility] Social History: Smoking Status (Most current) and Tobacco Use (All prior to encounter date) This section includes the most current, and the historical, smoking and tobacco- related health factors from the [place] facility where the Encounter took place. Current Smoking Status This section includes the most current smoking, or tobacco-related health factor, from the [place] facility where the Encounter took place. Date/Time Current Smoking Status Vickie white Mar 25, 2020 09:50 AM VA-TOBACCO FORMER USER [facility] Tobacco Use History This section includes a history of the smoking, or tobacco-related health factors, that were collected on or before the date of the Encounter. The data comes from the [place] facility where the Encounter took place. Date/Time Smoking Status/Tobacco Use Comment F acility Mar 25, 2020 09:50 AM [place]-TOBACCO QUIT 1 TO < 5 YRS [facility] Radiology Reports: +/- 30 days of [...] the Encounter. The data comes from all [place] treatment facilities. Date/Time Radiology Report Provider Source Mar 21, 2024 01:38 PM FLUOROSCOPIC HARPREET NCE OF NEEDLE/SPINE: SAVANNAH STEVEN [id number] -[id number] M Exm Date: MAR 21, 2024@13:38 Req Phys: TRACEE GORDON THI Pat Loc: [facility]/NO/MED REHAB/SPINE INJ (Re Img Loc: [facility] 1 Service: [place] [address] (Case [id number] COMPLETE) FLUOROSCOPIC GUIDANCE OF NEEDLE/S(RAD Detailed) CPT:99182 Reason for Study: transforaminal epidural steroid injection Clinical History: Report Status: Verified Date Reported: MAR 22, 2024 Date Verified: MAR 22, 2024 Roller Mechanic E-Sig:/ES/MOLLY ELLIOTT JR Report: Study: Pain injection of the lumbar spine. Findings: Fluoroscopic guidance was provided to Pain Management for interventional pain injection. No dictation provided for this study. Images captured for documentation only. Total fluoroscopy time used was 22.9 seconds. Total cumulative air kerma dose is 28.4 mGy. Impression: Fluoroscopic guidance for interventional pain injection. Primary Diagnostic Code: No immediate attention required Primary Interpreting Staff: MOLLY ELLIOTT JR, Radiologist (Roller Mechanic) /MOLLY TROTTER JR [facility] Encounter Notes: All associated encounter notes This section contains the clinical notes associated to the Encounter. Date/Time Encounter Note(s) Provider Source Mar 21, 2024 01:37 PM DISCHARGE NOTE: LOCAL TITLE: DISCHARGE INSTRUCTIONS/OUTPATIENT STANDARD TITLE: DISCHARGE NOTE DATE OF NOTE: MAR 21, 2024@13:37 ENTRY DATE: MAR 21, 2024@13:37:31 AUTHOR: TRACEE GORDON EXP COSIGNER: URGENCY: STATUS: COMPLETED Your ATTENDING PHYSICIAN for today's injection is: Tracee Gordon DO Reason for Visit: Right L3-4 and L4-5 transforaminal epidural steroid injection - Physical/Activity Limitations: No strenous activity for 24 Hours - Diet: Resume Previous Diet - Medication reconciliation performed. Active Outpatient Medications (including Supplies): Active Outpatient Medications Status 1) DULOXETINE HCL 60MG EC CAP TAKE ONE CAPSULE BY MOUTH ACTIVE ONCE DAILY 2) LISINOPRIL 10MG TAB TAKE ONE TABLET BY MOUTH ONCE ACTIVE DAILY TO CONTROL BLOOD PRESSURE 3) NAPROXEN 500MG TAB TAKE ONE TABLET BY MOUTH TWICE ACTIVE DAILY TAKE WITH FOOD; FOR PAIN/INFLAMMATION/SWELLIN G 4) PREGABALIN 150MG ORAL CAP TAKE ONE CAPSULE BY MOUTH ACTIVE TWICE DAILY FOR NERVE PAIN Active Non-VA Medications Status 1) Non-VA CHOLECALCIF 50MCG (D3-2,000UNIT) TAB 4000UNIT ACTIVE BY MOUTH ONCE DAILY 5 Total Medications No changes to current medications Resume your prior meds at you next regular scheduled dose except Aspirin, Plavix, Warfarin which can be restarted the next day if you are taking these medications. Medication Education 1. Take medications in the exact amount ordered by the clinician. Do not take more or less. 2. Keep each medication in the original and separate containers. 3. Ice every 2 hours as needed for post injection soreness/pain. Keep on for 15 minutes. Do not use heat within the first 48 hours unless specifically instructed by your doctor. 4. Keep a complete list of all your medications and share with all your health care providers, include all over the counter medications, vitamins or supplements. 5. Do not drink alcoholic beverage, drive or operate machinery, cook or make important decisions for twenty-four (24) hours. A responsible adult should remain with you for the next twenty-four hours and you should REST quietly during this time. Recommended plan for follow up: As scheduled Please call TELEPHONE ASSISTANCE if you experience: Fever 101.5, Dizziness or light-headedness, Redness, discharge, warmth to the touch or foul smelling discharge from wound, Shortness of breath, Nausea, vomiting, diarrhea, or no bowel movement for more than 48 hrs, Newly onset headache, Changes in behavior If you feel the medications are making you sick, your symptoms worsen or you are experiencing problems contact: TELEPHONE ASSISTANCE at [phone] or extension [phone] Or [phone] extension [phone] (CALISTA Moore) or extension [phone] (ROGELIO Toney) If you are in an emotional crisis, feeling suicidal or having any troubling or self-destructive or violent impulses - please call [phone] (or [phone]); press 1 for Veterans to ask for help 24hours per day. Discharge Instructions printed and given to patient: No. Verbal instructions provided due to COVID-19 restrictions. Patient/Caregiver verbalizes understanding of discharge instructions: Yes Diagnostic studies discussed with patient: N/A I have discussed these instructions with the patient/responsible adult and/or demonstrated appropriate care for the patient post discharge. A copy of these discharge instructions have been printed and given to the patient at the time of discharge. /clifford/ TRACEE GORDON DO BUSINESS AND FINANCIAL COUNSEL Signed: 03/21/2024 13:38 TRACEE GORDON [place] [facility]
--- OUTSIDE RECORDS SUMMARY | 2024-09-18 11:58 | XMS_ITS ---
Author Name [facility] [place] [facility] [place] Address [address] [place] [address] Care Team Providers Care Senior Telecommunications Technician Name Role Phone ERICKA CHUNG Primary Care [...] section includes the information on record at [place] for the Encounter. Date/Time Encounter Type Encounter Description Reason Provider Source Oct 26, 2023 11:00 AM OFFICE O/P EST HI 40 MIN PM&RS PHYSICIAN ICD-10-CM M54.16 Radiculopathy , lumbar region TRACEE GORDON [facility] Encounter Template Text not used by [place] Assessments - Encounter Diagnoses This section includes the primary and secondary diagnoses documented for the Encounter. Date/Time Primary/Secondary Diagnosis Diagnosis Name Provider Source Nov 07, 2023 10:36 PM PRIMARY Radiculopathy, lumbar region TRACEE GORDON [place] [facility] [place] [facility] Plan of Treatment: Future Appointments (+ 6 months) and Future Tests (+/- 45 days) The Plan of Treatment section includes future care activities for the patient from all [place] treatmentfacilities. This section includes future appointments and future orders which are active, pending or scheduled. Future Appointments This section includes appointments that were scheduled to occur 6 months from the date of the Encounter, up to a maximum of 20 appointments. The data comes from all [place] treatment facilities. Appointment Date/Time Appointment Type Appointme nt Facility Name Nov 17, 2023 02:30 PM [facility] Mar 21, 2024 01[facility]30 PM [facility] Lab Results: +/- 30 days of the encounter This section includes the Chemistry and Hematology Lab Results on record with [place] for the patient. Radiology Reports and Pathology Reports are provided separately, in subsequent sections. Lab Results This section contains the Chemistry/Hematology Results that were resulted 30 days before or 30 daysafter the date of the Encounter. Date/Time Source Result Type Result - Unit Interpretation Reference Range Specimen Type Comment Nov 11, 2023 12:55 PM [facility] HEPATITIS B SURFACE ANTIGEN (HBsAg)- SERUM [...] May 19, 2023 01:56 PM Reporting Lab: [address] [address] Performing Lab: [address] [address] HBsAg Non Reactive Non Reactive Nov 11, 2023 12:55 PM [facility] HEPATITIS B SURFACE ANTIBODY (HBsAb)- SERUM Specimen Type: SERUM No comment entered. Ordering Provider: ERICKA CHUNG Report Released Date/Time: May 19, 2023 01:56 PM Reporting Lab: [facility] [address] [facility] [address] Performing Lab: [facility] Nov 11, 2023 12:55 PM [facility] LIPID PANEL FASTING SERUM Specimen Type: SERU M No comment entered. Ordering Provider: ERICKA CHUNG Report Released Date/Time: May 19, 2023 06:46 AM Reporting Lab: [address] [address] Performing Lab: [address] [address] CHOLESTEROL 203 mg/dL H TRIGLYCERIDE 93 mg/dL 0-150 LDL calculated 145 mg/dL H 0-129 CHOL/HDL 5.2 HDL CHOLESTEROL 39 mg/dL L 40-60 Nov 11, 2023 12:55 PM [facility] LIVER FUNCTION SERUM Specimen Type: SERUM No comment entered. Ordering Provider: ERICKA CHUNG Report Released Date/Time: May 19, 2023 06:46 AM Reporting Lab: [address] [address] Performing Lab: [address] [address] PROTEIN,TOTAL 6.4 g/dL 6.0-8.3 ALBUMIN 3.9 g/dL 3.5-5.0 ALKALINE PHOSPHATASE 58 U/L 40-150 AST 12 U/L 5-34 ALT 23 U/L BILIRUBIN, TOTAL 0.6 mg/dL 0.2-1.2 Nov 11, 2023 12:55 PM [facility] BASIC METABOLIC PANEL (fasting) SERUM Specime n Type: SERUM No comment entered. Ordering Provider: ERICKA CHUNG Report Released Date/Time: May 19, 2023 06:46 AM Reporting Lab: [address] [address] Performing Lab: [address] [address] UREA NITROGEN 18 mg/dL 7-25 GLUCOSE 89 [...] Height Weight Body Mass Index Source Oct 26, 2023 11:44 AM 60 140/90 97 6 [facility] Oct 26, 2023 10:57 AM 64 160/90 20 97 6 [facility] Social History: Smoking Status (Most current) and Tobacco Use (All prior to encounter date) This section includes the most current, and the historical, smoking and tobacco- related health factors from the [place] facility where the Encounter took place. Current Smoking Status This section includes the most current smoking, or tobacco-related health factor, from the [place] facility where the Encounter took place. Date/Time Current Smoking Status Comment Facil ity Mar 25, 2020 09:50 AM [place]-TOBACCO FORMER USER [facility] Tobacco Use History This section includes a history of the smoking, or tobacco-related health factors, that were collected on or before the date of the Encounter. The data comes from the [place] facility where the Encounter took place. Date/Time Smoking Status/Tobacco Use Comment F acility Mar 25, 2020 09:50 AM [place]-TOBACCO QUIT 1 TO < 5 YRS [facility] Radiology Reports: +/- 30 days of [...] the Encounter. The data comes from all [place] treatment facilities. Date/Time Radiology Report Provider Source Oct 26, 2023 11:17 AM FLUOROSCOPIC HARPREET NCE OF NEEDLE/SPINE: SAVANNAH STEVEN [id number] -[id number] M Exm Date: OCT 26, 2023@11:17 Req Phys: TRACEE GORDON THI Pat Loc: [facility]/NO/MED REHAB/SPINE INJ (Re Img Loc: [facility]BUILDING 1 Service: Unknown [facility] , (Case [id number] COMPLETE) FLUOROSCOPIC GUIDANCE OF NEEDLE/S(RAD Detailed) CPT:93038 Reason for Study: transforaminal epidural steroid injection Clinical History: Report Status: Verified Date Reported: NOV 10, 2023 Date Verified: NOV 10, 2023 [employer] Range Tender E-Sig:/ES/MOLLY ELLIOTT JR Report: Study: Pain injection [...] Primary Interpreting Staff: MOLLY ELLIOTT JR, Radiologist ([employer]ating Range Tender) /MOLLY TROTTER JR [facility] Encounter Notes: All associated encounter notes This section contains the clinical notes associated to the Encounter. Date/Time Encounter Note(s) Provider Source Oct 26, 2023 11:54 AM PHYSICAL MEDICINE REHAB NOTE: LOCAL TITLE: PM&R BACK/JOINT PROCEDURE NOTE STANDARD TITLE: PHYSICAL MEDICINE REHAB NOTE DATE OF NOTE: OCT 26, 2023@11:54 ENTRY DATE: OCT 26, 2023@11:54:22 AUTHOR: TRACEE GORDON EXP COSIGNER: URGENCY: STATUS: COMPLETED PROCEDURE NOTE: LUMBAR/SACRAL TRANSFORAMINAL EPIDURAL STEROID INJECTION PHYSICIAN: Tracee Gordon DO PROCEDURE: 1) Right L3-4 and L4-5 transforaminal epidural steroid injection 2) Fluoroscopic needle guidance REASON FOR PROCEDURE: Lumbar radiculopathy PHYSICIAN: Tracee Gordon DO MEDICATIONS INJECTED: 10mg dexamethasone + 2mL of 1% lidocaine total, divided equally between the two levels. Lot#: [id number] Exp: 08/24 LOCAL ANESTHETIC INJECTED: 1 mL of 1% lidocaine per site CONTRAST AGENT USED: 1.5 mL of Omnipaque 300 Contrast AGENT WASTED: 0 mL of Omnipaque 300 SEDATION MEDICATIONS: None ESTIMATED BLOOD LOSS: None COMPLICATIONS: None HISTORY: presents for follow-up, reporting no change in symptoms since last evaluated 6/24/24. On that date, NCS/EMG showed no evidence of L2-S1 radiculopathy. Patient denies any change in location, quality or severity of symptoms. Last right L3-4 and L4-5 TFESI provided 75% pain relief for about 3 months. Denies fever, chills or changes in bowel or bladder function. EXAM: VSS. Awake, alert, in NAD. Gets on/off exam table without significant difficulties. Moderately obese gentleman. Lumbar PSM hypertonicity with a few trigger points at L3-S1. No focal weakness in the legs. Gait is slightly wide based due to body habitus, negative trendelenburg, no spasticity. TIME OUT NOTE TIME: OCT 26, 2023@11:19 correctly stated: [X]Full name: SAVANNAH STEVEN [X]Last #: [id number] [X]: Jun STAFF NAME: Leti Alonso RN LOCATION: Marked site of injection on right low back. TECHNIQUE: Time-out was taken to identify the correct patient, procedure and side prior to starting the procedure. Lying in a prone position, the patient was prepped and draped in the usual sterile fashion using ChloraPrep and a fenestrated drape. The area to be injected was determined under fluoroscopic guidance. Local anesthetic was given by raising a skin wheal and going down to the hub of a 30-gauge 0.5-inch needle. The 5-inch 22-gauge Quincke needle was advanced toward the 6 o'clock position of the pedicle at each above-named nerve root level. The needle was advanced to the final position via a lateral fluoroscopic intermittent image. Omnipaque 300 was injected and showed epidural spread and there was no vascular runoff. After a negative aspiration, the medication was then injected. The procedure was completed without complications and was tolerated well. The patient was monitored after the procedure. The patient (or responsible constitution party) was given post-procedure and discharge instructions to follow at home. The patient was discharged in stable condition. Pre-procedure pain level: 10 Post-procedure pain level: 10 ASSESSMENT: 43 yo male with lumbar radiculopathy. PLAN: - Right L3-4 and L4-5 TFESI today. - Post-injection follow-up with PM&R nursing in 2 weeks. - Pending injection efficacy, repeat injection can be repeated in 4 months. - Discharge instructions provided including the use of ice q2 hrs x 48 hrs prn post injection soreness/pain. - Engage in some form of low impact aerobic activity daily such as walking daily for 30 minutes or longer if tolerated. Pacing and rest breaks as needed. - No medication changes. - Contact me with any issues/questions MDM: 40 minutes Medication Reconciliation: Outpatient: Has the patient been taking medications as documented in the EMLR? YES: The patient has been taking medications as documented in the EMLR. Essential Medication List for Review used to complete this medication reconciliation. INCLUDED IN THIS LIST: Alphabetical list of active outpatient prescriptions dispensed from this [place] (local) and dispensed from another [place] or [facility] facility (remote) as well as inpatient orders [...] or non-VA provider. /clifford/ TRACEE GORDON DO THIRD HELPER Signed: 11/07/2023 22:36 TRACEE GORDON [place] [facility] [place] [facility] Oct 26, 2023 11:14 AM DISCHARGE NOTE: LOCAL TITLE: DISCHARGE INSTRUCTIONS/OUTPATIENT STANDARD TITLE: DISCHARGE NOTE DATE OF NOTE: OCT 26, 2023@11:14 ENTRY DATE: OCT 26, 2023@11:14:46 AUTHOR: TRACEE GORDON EXP COSIGNER: URGENCY: STATUS: COMPLETED Your ATTENDING PHYSICIAN for today's injection is: Tracee Gordon DO Reason for Visit: right L3-4 and L4-5 transforaminal epidural steroid injections - Physical/Activity Limitations: No strenous activity for [...] are experiencing problems contact: TELEPHONE ASSISTANCE at [phone] or extension [phone] Or [phone] extension [phone] (CALISTA Moore) or extension [phone] (ROGELIO Toney) If you are in an emotional crisis, feeling suicidal or having any troubling or self-destructive or violent impulses - please call [phone] (or [phone]); press 1 for Veterans to ask for [...] time of discharge. /clifford/ TRACEE GORDON DO THIRD HELPER Signed: 10/26/2023 11:15 TRACEE GORDON [place] [facility]
--- OUTSIDE RECORDS SUMMARY | 2024-09-18 11:58 | XMS_ITS | Encounter Summary ---
Author Name [facility] [place] Address [address] [place] [address] Care Team Providers Care Distance Education Director Name Role Phone ERICKA CHUNG Primary Care [...] Type Encounter Description Reason Provider Source September 04, 2024 01:00 PM [facility] EA ADDL WEIGHT MGMT & MOVE! PROG - GRP ICD-10-CM E66.813 Obesity, class 3 WANG FELIZ Encounter Template Text not used by [place] Assessments - Encounter Diagnoses This section includes the primary and secondary diagnoses documented for the Encounter. Date/Time Primary/Secondary Diagnosis Diagnosis Name Provider Source September 04, 2024 02:29 PM PRIMARY Obesity, class 3 WANG FELIZ ([facility]) September 04, 2024 02:29 PM SECONDARY Body mass index [BMI] 45.0-49.9, adult WANG FELIZ ([facility]) Plan of Treatment: Future Appointments (+ 6 months) and Future Tests (+/- 45 days) The Plan of Treatment section includes future care activities for the patient [facility] [place] [facility] This section includes future appointments and future orders which are active, pending or scheduled. Future Appointments This section includes appointments that were scheduled to occur 6 months from the date of the Encounter, up to a maximum of 20 appointments. The data comes from all [facility] facilities. Appointment Date/Time Appointment Type Appointme nt Facility Name September 11, 2024 01:00 PM [facility] NONE [facility] ([facility] September 13, 2024 03:00 PM [facility] September 25, 2024 02:30 PM [facility] Dec 10, 2024 02:00 PM AMBULATORY - MEDICINE [facility] Active, Pending, and Scheduled Orders This section includes a listing of several types of active, pending, and scheduled orders, including clinic medications orders, diagnostic test orders, procedure orders and consult orders; where the start date of the order is 45 days before the date of the Encounter or 45 days after the date of theEncounter. The data comes from all [facility] facilities. Test Date/Time Test Type Test Details Facility Name Aug 28, 2024 08:39 AM Consult Order COMMUNITY [facility]-PODIATRY Cons Manager Of Health's Choice [facility] Lab Results: +/- 30 days [...] Type Comment Aug 22, 2024 09:09 AM [facility] BASIC METABOLIC PANEL (fasting) SERUM Specime n Type: SERUM No comment entered. Ordering Provider: ERICKA CHUNG Report Released Date/Time: Jul 18, 2024 03:45 PM Reporting Lab: [address] [address] Performing Lab: [address] [address] UREA NITROGEN 18 mg/dL 9-21 GLUCOSE 94 mg/dL 65-100 SODIUM 139 mmol/L 136-145 POTASSIUM 4.4 mmol/L 3.5-5.1 CHLORIDE 106 mmol/L 98-107 CO2 25 meq/L 22-29 CALCIUM 9.0 mg/dL 8.4-10.2 CREATININE, Serum 0.77 mg/dL 0.72-1.25 eGFR(CKD-EPI 2020) >90 mL/min >60 Aug 22, 2024 09:09 AM [facility] CBC AND DIFF (AUTO) BLOOD Specimen Type: BLOO D No comment entered. Ordering Provider: ERICKA CHUNG Report Released Date/Time: Jul 18, 2024 03:45 PM Reporting Lab: [facility] [address] [facility] [address] Performing Lab: [address] [address] WBC 6.93 10*3/uL 4.50-11.00 RBC 4.27 10*6/uL [...] Pain Height Weight Body Mass Index Source September 04, 2024 04:12 PM 347 50 LOCO JOY ([facility]) Encounter Notes: All associated encounter notes This section contains the clinical notes associated to the Encounter. Date/Time Encounter Note(s) Provider Source September 04, 2024 01:00 PM MOVE NOTE: LOCAL TITLE: WEIGHT MANAGEMENT/MOVE! OUTPATIENT GROUP NOTE STANDARD TITLE: MOVE NOTE DATE OF NOTE: SEPTEMBER 04, 2024@13:00 ENTRY DATE: SEPTEMBER 04, 2024@14:18:52 AUTHOR: WANG FELIZ COSIGNER: URGENCY: STATUS: COMPLETED Veterans participated in MOVE! Group Counseling via VVC on: 09/04/24 The [place] was provided with information on VVC and has given verbal consent to use group VVC services for their healthcare. The copy of the Group Telehealth Agreement has been mailed to the . The [place]'s location/emergency contact number were confirmed. The Emergency Call Relay Center (E911) was available. The visit was locked for security and privacy. [place] identified with 2 identifiers: [x] Full Name [x] Address Veterans attended the MOVE! group session on this date via VVC or by phone. MOVE! is a program designed to provide education about weight management skills to overweight and obese veterans. Veterans submitted their stated weights to staff. The group facilitators began the session by reviewing the previous weeks topic (Managing Weight-Loss Challenges). Participants were asked to share their respective progress toward achieving their respective goals and to share their experiences with keeping a food and physical activity log over the past week. Positive feedback was given to the Veterans for their efforts. Session #9 (Pump Up Your Physical Activity) was then conducted using the MOVE! Workbook. Facilitators discussed how to increase physical activity plans through cardiovascular, strengthening, and stretching exercises. Example activity plans were provided for walking, cardio, strengthening, and stretching. The corresponding images and directions for completing the strengthening and stretching exercises were discussed. Lastly, the importance of a warm-up and cool-down was reviewed. The objectives accomplished at todays session were: 1. Discussed the importance of a warm-up and cool-down. 2. Reviewed plans for cardio, strengthening and flexibility activities. 3. Assisted Veterans in creating individualized activity plans. Participants were asked to continue recording weight daily, to log all food and beverages consumed daily, and to also log all physical activities daily. They were instructed to continue to have their completed Food and Physical Activity Logs available every session. Next session will be held on 09/11/24. Today's Weight: 347 lb Weight Loss of -.2 lb from last visit Dx: Obesity, Class III E66.813, Z68.42 /es/ Wang Feliz, PhD Clinical Psychologist Signed: 09/04/2024 14:33 Receipt Acknowledged By: 09/04/2024 15:53 /es/ NELLY GARCIA RD,LDN STAFF DIETITIAN WANG FELIZ ([facility])
--- OUTSIDE RECORDS SUMMARY | 2024-09-18 11:58 | XMS_ITS | Continuity of Care Document ---
Author Name [facility] Organization [facility] Care Team Providers Care Conference Center Coordinator Name Role Phone [facility] Unavailable Unavailable Problems Combined list of problems from Department of Defense and Veterans Affairs facilities. It does not include entries that were removed or entered in error. Problem Status Onset Date Problem Type Date of Resolution Comments Source Back pain Active Condition [facility] [place] [facility] Former Smoker Active Condition Mar Entered By: ERICKA CHUNG Comment: Quit 08/2017 [place] Hypertension [facility] Morbid obesity Active Condition [facility] Neuropathy Active Condition Mar 29, 2017 Entered By: ERICKA CHUNG Comment: Right Arm & Right Leg [facility] OBSTRUCTIVE SLEEP APNEA Active Condition [facility] Psoriasis Active Condition [facility] Sleep apnea Active Condition Mar 29, 2017 Entered By: ERICKA CHUNG Comment: Dxed 2014 - on CPAP [facility] Abdominal Pain, Generalized (ICD-9-CM 789.07) Inactive Condition 03/29/2017 [facility] Chronic obstructive asthma (with obstructive pulmonary disease), without mention Inactive Condition 03/29/2017 [place] History of Migraines Inactive Condition 03/29/2017 [facility] Nicotine Dependence (ICD-9-CM 305.1) Inactive Condition 03/29/2017 [facility] Pain in joint involving ankle and foot (ICD-9-CM 719.47) Inactive Condition 03/29/2017 [facility] Diagnosis: ICD-10-CM Z01.818 Encounter for other preprocedural examination Active Diagnosis [place] Diagnosis: ICD-10-CM E66.813 Obesity, class 3 Active Diagnosis [place] [facility] ([facility]) Diagnosis: ICD-10-CM M17.12 Unilateral primary osteoarthritis, left knee [facility] Diagnosis: ICD-10-CM E66.01 Morbid (severe) obesity due to excess calories Active Diagnosis [facility] Diagnosis: ICD-10-CM Z13.6 Encounter for screening for cardiovascular disorders Active Diagnosis [facility] Diagnosis: ICD-10-CM I10 Essential (primary) hypertension Active Diagnosis [place] Diagnosis: ICD-10-CM M54.50 Low back pain, unspecified Active Diagnosis [facility] Diagnosis: ICD-10-CM M54.16 Radiculopathy, lumbar region Active [facility] [place] [facility] Diagnosis: ICD-10-CM M54.59 Other low back pain Active Diagnosis [facility] [place] [facility] Diagnosis: ICD-10-CM M51.16 Intervertebral disc disorders w radiculopathy, lumbar region Active Diagnosis [facility] [place] [facility] Medications Combined list of outpatient medications from Department of Defense and Veterans Affairs facilities.Medications provided include 1) outpatient medications from the last 15 months, and 2) patient-reported medications. Medication Details Route Status Patient Instructions Prescription Expires Prescription Number Last Dispense Date Ordering Provider Order Date Order Qty Source CHOLECALCIF JOHN 50MCG (2,000UNIT) TAB TAKE TWO TABLETS BY MOUTH ONCE DAILY ORAL ACTIVE HAFSA CHUNG SA [facility] DICLOFENAC NA 1% GEL,TOP APPLY 4 GRAMS TOPICALL Y FOUR TIMES A DAY FOR JOINT PAIN FOR OSTEOART HRITIS - USE DOSING CARD PROVIDED IN BOX TOPICA L ACTIVE 06/30/2025 [id number] 5 HAFSA CHUNG SA 2024 200 [place] DULOXETINE HCL 60MG CAP,EC TAKE ONE CAPSULE BY MOUTH ONCE DAILY ORAL ACTIVE 06/13/2025 [id number] 5 HAFSA CHUNG SA 2024 90 [place] DULOXETINE HCL 60MG CAP,EC TAKE ONE CAPSULE BY MOUTH ONCE DAILY ORAL DISCONT INUED 05/19/2024 [id number] HAFSA CHUNG SA 2023 90 [place] LISINOPRIL 10MG TAB TAKE ONE TABLET BY MOUTH ONCE DAILY TO CONTROL BLOOD PRESSURE ORAL ACTIVE 06/13/2025 [id number] 5 HAFSA CHUNG SA 2024 90 [place] LISINOPRIL 10MG TAB TAKE ONE TABLET BY MOUTH ONCE DAILY TO CONTROL BLOOD PRESSURE ORAL DISCONT INUED 05/02/2024 [id number] 4 HAFSA CHUNG SA 2023 90 [place] NAPROXEN 500MG TAB TAKE ONE TABLET BY MOUTH TWICE DAILY TAKE WITH FOOD; FOR PAIN/INF LAMMATIO N/SWELLI NG ORAL ACTIVE 08/29/2025 [id number] 5 HAFSA CHUNG SA 2024 180 [place] NAPROXEN 500MG TAB TAKE ONE TABLET BY MOUTH TWICE DAILY TAKE WITH FOOD; FOR PAIN/INF LAMMATIO N/SWELLI NG ORAL DISCONT INUED 08/29/2024 [id number] 5 HAFSA CHUNG SA 2024 180 [place] NAPROXEN 500MG TAB TAKE ONE TABLET BY MOUTH TWICE DAILY TAKE WITH FOOD; FOR PAIN/INF LAMMATIO N/SWELLI NG ORAL DISCONT INUED 12/02/2024 [id number] 4 [facility] 2023 180 [place] NAPROXEN 500MG TAB TAKE ONE TABLET BY MOUTH TWICE DAILY TAKE WITH FOOD; FOR PAIN/INF LAMMATIO N/SWELLI NG ORAL DISCONT INUED 05/19/2024 [id number] 4 HAFSA CHUNG SA 2023 180 [place] PREGABALIN 150MG CAP,ORAL TAKE ONE CAPSULE BY MOUTH TWICE DAILY FOR NERVE PAIN ORAL ACTIVE 02/28/2025 [id number] 5 HAFSA CHUNG SA 2024 60 [place] PREGABALIN 150MG CAP,ORAL TAKE ONE CAPSULE BY MOUTH TWICE DAILY FOR NERVE PAIN ORAL DISCONT INUED 12/01/2024 [id number] 5 HAFSA CHUNG SA 2024 60 [place] PREGABALIN 150MG CAP,ORAL TAKE ONE CAPSULE BY MOUTH TWICE DAILY FOR NERVE PAIN ORAL DISCONT INUED 06/03/2024 [id number] 5 [facility] MCMAH[facility] AMBAR 2023 60 [place] PREGABALIN 150MG CAP,ORAL TAKE ONE CAPSULE BY MOUTH TWICE DAILY FOR NERVE PAIN ORAL DISCONT INUED 11/19/2023 [id number] 4 HAFSA CHUNG SA 2023 60 [place] SEMAGLUTIDE (WT LOSS) 0.25MG/0.5M L INJ,SOLN,PE N,0.5ML INJECT 0.25MG SUBCUTAN EOUSLY ONCE A WEEK SUBCUT ANEOUS DISCONT INUED (EDIT) 09/01/2024 [id number] [facility] 2024 4 [facility] [place] [facility] SEMAGLUTIDE (WT LOSS) 0.5MG/0.5ML INJ,SOLN,PE N,0.5ML INJECT 0.5MG SUBCUTAN EOUSLY ONCE A WEEK FOR WEIGHT LOSS SUBCUT ANEOUS ACTIVE 09/27/2024 [id number] 5 [facility] 2024 4 [facility] [place] TRAMADOL HCL 50MG TAB TAKE ONE TABLET BY MOUTH AT BEDTIME FOR PAIN MAY TAKE TWO TABLETS IF NEEDED ORAL 12/18/2023 [id number] 4 HAFSA CHUNG SA [address] [facility] [place] Allergies, Adverse Reactions, Alerts Combined list of allergies from Department of Defense and Veterans Affairs facilities. It does not include entries that were removed or entered in error. Substance Category Reaction Severity Reaction type Status Date Reported Comments Source No Known Allergies Drug allergy (disorder) active 01/14/2008 [facility] Immunizations Combined list of available immunizations from the Department of Defense and Veterans Affairs facilities. 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 [place] HEP B, ADULT 2022 ALISHA ALFARO ON M RIGHT DELTO ID [id number] 43 complet ed Booster for Series, ADMINISTE [facility] [place], [facility] [place] TDAP 2022 115 complet ed Booster for Series, HISTORICA L INFORMATI ON - SOURCE UNSPECIFI ED, [facility] [place] HEP B, ADULT 2022 ALISHA ALFARO ON M LEFT DELTO ID [id number] 43 complet ed [facility]MIN[facility], [facility] [place] INFLUENZA, INJECTABLE, QUADRIVALENT, PRESERVATIVE FREE 2022 ALISHA ALFARO ON M LEFT DELTO ID [id number] 150 complet ed [facility]MIN[facility] [place] COVID-19 (MODERNA), MRNA, LNP-S, PF, 100 MCG OR 50 MCG DOSE 2 2020 207 complet ed [facility] COVID-19 (MODERNA), MRNA, LNP-S, PF, 100 MCG OR 50 MCG DOSE 1 2020 207 complet ed [facility] INFLUENZA, INJECTABLE, QUADRIVALENT, PRESERVATIVE FREE [address] [facility] [place] INFLUENZA, INJECTABLE, QUADRIVALENT, PRESERVATIVE FREE 2018 150 complet ed Site: Left Deltoid [place] INFLUENZA, SEASONAL, INJECTABLE 2017 141 complet ed Site: Right Deltoid [place] INFLUENZA, SEASONAL, INJECTABLE 2016 141 complet ed Site: Right Deltoid [place] FLU,3 YRS (HISTORICAL) 2013 88 complet ed Site: Left Deltoid [place] DTAP, UNSPECIFIED FORMULATION 2012 107 complet ed Site: Right Deltoid [place] PNEUMOCOCCAL, UNSPECIFIED FORMULATION 2012 109 complet ed [place] FLU,3 YRS (HISTORICAL) 2006 88 complet ed Site: Left Deltoid [place] Results Combined list of recent chemistry, hematology and other laboratory results from Department of Defense and Veterans Affairs, ranging from 15 months to all on record, depending upon the facility. Order Name Results Value Reference Range Date Interpretation Specimen Comments Source BASIC METABOLI C PANEL (fasting ) UREA NITROGEN [MASS/VOLU ME] IN SERUM OR PLASMA 18 mg/dL 9 - 21 08/22 Specimen Type: SERUM No comment entered. Ordering Provider: ERICKA CHUNG Report Released Date/Time: Jul 18, 2024 03:45 PM Reporting Lab: [facility] [place] [address] [address] Performing Lab: [facility] [place] [address] [address] [facility] [place] [facility] BASIC METABOLI C PANEL (fasting ) GLUCOSE [MASS/VOLU ME] IN SERUM OR PLASMA 94 mg/dL 65 - 100 08/22 Specimen Type: SERUM No comment entered. Ordering Provider: ERICKA CHUNG Report Released Date/Time: Jul 18, 2024 03:45 PM Reporting Lab: [facility] [place] [address] [address] Performing Lab: [facility] [place] [address] [address] [facility] BASIC METABOLI C PANEL (fasting ) SODIUM [MOLES/VOL UME] IN SERUM OR PLASMA 139 mmol/L 136 - 145 08/22 Specimen Type: SERUM No comment entered. Ordering Provider: ERICKA CHUNG Report Released Date/Time: Jul 18, 2024 03:45 PM Reporting Lab: [facility] [place] [address] [address] Performing Lab: [facility] [place] [place] [address] [address] [facility] [place] [facility] BASIC METABOLI C PANEL (fasting ) POTASSIUM [MOLES/VOL UME] IN SERUM OR PLASMA 4.4 mmol/L 3.5 - 5.1 08/22 Specimen Type: SERUM No comment entered. Ordering Provider: ERICKA CHUNG Report Released Date/Time: Jul 18, 2024 03:45 PM Reporting Lab: [facility] [place] [address] Performing Lab: [facility] [place] [facility] [address] [address] [facility] [place] [facility] BASIC METABOLI C PANEL (fasting ) CHLORIDE [MOLES/VOL UME] IN SERUM OR PLASMA 106 mmol/L 98 - 107 08/22 Specimen Type: SERUM No comment entered. Ordering Provider: ERICKA CHUNG Report Released Date/Time: Jul 18, 2024 03:45 PM Reporting Lab: [facility] [place] [facility] [address] [address] Performing Lab: [facility] [address] [address] [facility] BASIC METABOLI C PANEL (fasting ) CARBON DIOXIDE, TOTAL [MOLES/VOL UME] IN SERUM OR PLASMA 25 meq/L 22 - 29 08/22 Specimen Type: SERUM No comment entered. Ordering Provider: ERICKA CHUNG Report Released Date/Time: Jul 18, 2024 03:45 PM Reporting Lab: [facility] [place] [facility] [address] [address] Performing Lab: [facility] [place] [facility] [address] [address] [facility] BASIC METABOLI C PANEL (fasting ) CALCIUM [MASS/VOLU ME] IN SERUM OR PLASMA 9.0 mg/dL 8.4 - 10.2 08/22 Specimen Type: SERUM No comment entered. Ordering Provider: ERICKA CHUNG Report Released Date/Time: Jul 18, 2024 03:45 PM Reporting Lab: [facility] [place] [facility] [address] [address] Performing Lab: [facility] [address] [address] [facility] BASIC METABOLI C PANEL (fasting ) CREATININE [MASS/VOLU ME] IN SERUM OR PLASMA 0.77 mg/dL 0.72 - 1.25 08/22 Specimen Type: SERUM No comment entered. Ordering Provider: ERICKA CHUNG Report Released Date/Time: Jul 18, 2024 03:45 PM Reporting Lab: [facility] [place] [facility] [address] [address] Performing Lab: [facility] [place] [facility] [address] [address] [facility] [place] [facility] BASIC METABOLI C PANEL (fasting ) GLOMERULAR FILTRATION RATE/1.73 SQ M.PREDICTE D [VOLUME RATE/AREA] IN SERUM, PLASMA OR BLOOD BY CREATININE -BASED FORMULA (CKD-EPI 2020) >90mL/mi n 60 08/22 Specimen Type: SERUM No comment entered. Ordering Provider: ERICKA CHUNG Report Released Date/Time: Jul 18, 2024 03:45 PM Reporting Lab: [facility] [place] [facility] [address] [address] Performing Lab: [facility] [place] [place] [address] [address] [facility] [place] [facility] CBC AND DIFF (AUTO) LEUKOCYTES [#/VOLUME] IN BLOOD BY AUTOMATED COUNT 6.93 10*3/uL 4.50 - 11.00 08/22 Specimen Type: BLOOD No comment entered. Ordering Provider: ERICKA CHUNG Report Released Date/Time: Jul 18, 2024 03:45 PM Reporting Lab: [facility] [place] [facility] [address] [address] Performing Lab: [facility] [place] [facility] [address] [address] [facility] [place] [facility] CBC AND DIFF (AUTO) ERYTHROCYT ES [#/VOLUME] IN BLOOD BY AUTOMATED COUNT 4.27 10*6/uL 4.23 - 5.66 08/22 Specimen Type: BLOOD No comment entered. Ordering Provider: ERICKA CHUNG Report Released Date/Time: Jul 18, 2024 03:45 PM Reporting Lab: [facility] [place] [facility] [address] [address] Performing Lab: [facility] [place] [address] [address] [facility] [place] [facility] CBC AND DIFF (AUTO) HEMOGLOBIN [MASS/VOLU ME] IN BLOOD 13.2 g/dL 12.8 - 17 08/22 Specimen Type: BLOOD No comment entered. Ordering Provider: ERICKA CHUNG Report Released Date/Time: Jul 18, 2024 03:45 PM Reporting Lab: [facility] [facility] [address] [address] Performing Lab: [facility] [facility] [address] [address] [facility] [place] [facility] CBC AND DIFF (AUTO) HEMATOCRIT [VOLUME FRACTION] OF BLOOD BY AUTOMATED COUNT 39.1 39.2 - 50.4 08/22 L Specimen Type: BLOOD No comment entered. Ordering Provider: ERICKA CHUNG Report Released Date/Time: Jul 18, 2024 03:45 PM Reporting Lab: [facility] [place] [facility] [address] [address] Performing Lab: [facility] [place] [facility] [address] [address] [facility] [place] CBC AND DIFF (AUTO) MCV [ENTITIC VOLUME] BY AUTOMATED COUNT 91.6 fL 82 - 99 08/22 Specimen Type: BLOOD No comment entered. Ordering Provider: ERICKA CHUNG Report Released Date/Time: Jul 18, 2024 03:45 PM Reporting Lab: [facility] [place] [facility] [address] [address] Performing Lab: [facility] [facility] [address] [address] [facility] [place] [facility] CBC AND DIFF (AUTO) MCHC [MASS/VOLU ME] BY AUTOMATED COUNT 33.8 g/dL 30.8 - 35.1 08/22 Specimen Type: BLOOD No comment entered. Ordering Provider: ERICKA CHUNG Report Released Date/Time: Jul 18, 2024 03:45 PM Reporting Lab: [facility] [place] [facility] [address] [address] Performing Lab: [facility] [place] [facility] [address] [address] [facility] [place] [facility] CBC AND DIFF (AUTO) PLATELETS [#/VOLUME] IN BLOOD BY AUTOMATED COUNT 229 10*3/uL 140 - 360 08/22 Specimen Type: BLOOD No comment entered. Ordering Provider: ERICKA CHUNG Report Released Date/Time: Jul 18, 2024 03:45 PM Reporting Lab: [facility] [place] [facility] [address] [address] Performing Lab: [facility] [place] [facility] [address] [address] [facility] [place] [facility] CBC AND DIFF (AUTO) PLATELET MEAN VOLUME [ENTITIC VOLUME] IN BLOOD BY AUTOMATED COUNT 10.7 fL 9.2 - 12.4 08/22 Specimen Type: BLOOD No comment entered. Ordering Provider: ERICKA CHUNG Report Released Date/Time: Jul 18, 2024 03:45 PM Reporting Lab: [facility] [place] [facility] [address] [address] Performing Lab: [facility] [place] [place] [facility] [address] [address] [facility] [place] [facility] CBC AND DIFF (AUTO) ERYTHROCYT E DISTRIBUTI ON WIDTH [RATIO] BY AUTOMATED COUNT 12.4 12.0 - 16.0 08/22 Specimen Type: BLOOD No comment entered. Ordering Provider: ERICKA CHUNG Report Released Date/Time: Jul 18, 2024 03:45 PM Reporting Lab: [facility] [place] [facility] [address] [address] Performing Lab: [facility] [place] [place] [facility] [address] [address] [facility] [place] [facility] CBC AND DIFF (AUTO) MONOCYTES [#/VOLUME] IN BLOOD BY AUTOMATED COUNT 0.74 10*3/uL 0.30 - 1.10 08/22 Specimen Type: BLOOD No comment entered. Ordering Provider: ERICKA CHUNG Report Released Date/Time: Jul 18, 2024 03:45 PM Reporting Lab: [facility] [place] [facility] [address] [address] Performing Lab[facility] [place] [facility] [address] [address] [facility] [place] [facility] CBC AND DIFF (AUTO) MCH [ENTITIC MASS] BY AUTOMATED COUNT 30.9 pg 26.2 - 32.6 08/22 Specimen Type: BLOOD No comment entered. Ordering Provider: ERICKA CHUNG Report Released Date/Time: Jul 18, 2024 03:45 PM Reporting Lab: [facility] [place] [facility] [address] [address] Performing Lab: [facility] [place] [facility] [address] [address] [facility] [place] [facility] CBC AND DIFF (AUTO) NEUTROPHIL S/100 LEUKOCYTES IN BLOOD BY AUTOMATED COUNT 63.3 43.7 - 75.8 08/22 Specimen Type: BLOOD No comment entered. Ordering Provider: ERICKA CHUNG Report Released Date/Time: Jul 18, 2024 03:45 PM Reporting Lab: [facility] [place] [facility] [address] [address] Performing Lab: [facility] [place] [facility] [address] [address] [facility] [place] [facility] CBC AND DIFF (AUTO) LYMPHOCYTE S/100 LEUKOCYTES IN BLOOD BY AUTOMATED COUNT 24.4 14.0 - 42.3 08/22 Specimen Type: BLOOD No comment entered. Ordering Provider: ERICKA CHUNG Report Released Date/Time: Jul 18, 2024 03:45 PM Reporting Lab: [facility] [place] [facility] [address] [address] Performing Lab: [facility] [place] [facility] [address] [address] [facility] [place] [facility] CBC AND DIFF (AUTO) MONOCYTES/ 100 LEUKOCYTES IN BLOOD BY AUTOMATED COUNT 10.7 5.1 - 13.7 08/22 Specimen Type: BLOOD No comment entered. Ordering Provider: ERICKA CHUNG Report Released Date/Time: Jul 18, 2024 03:45 PM Reporting Lab: [facility] [place] [facility] [address] [address] Performing Lab: [facility] [place] [facility] [address] [address] [facility] [place] [facility] CBC AND DIFF (AUTO) EOSINOPHIL S/100 LEUKOCYTES IN BLOOD BY AUTOMATED COUNT 1.0 0.4 - 6.8 08/22 Specimen Type: BLOOD No comment entered. Ordering Provider: ERICKA CHUNG Report Released Date/Time: Jul 18, 2024 03:45 PM Reporting Lab: [facility] [place] [facility] [address] [address] Performing Lab: [facility] [place] [facility] [address] [address] [facility] [place] [facility] CBC AND DIFF (AUTO) BASOPHILS/ 100 LEUKOCYTES IN BLOOD BY AUTOMATED COUNT 0.3 0.1 - 2.0 08/22 Specimen Type: BLOOD No comment entered. Ordering Provider: ERICKA CHUNG Report Released Date/Time: Jul 18, 2024 03:45 PM Reporting Lab: [facility] [place] [facility] [address] [address] Performing Lab: [facility] [place] [facility] [address] [address] [facility] [place] [facility] CBC AND DIFF (AUTO) NEUTROPHIL S [#/VOLUME] IN BLOOD BY AUTOMATED COUNT 4.39 10*3/uL 2.20 - 7.60 08/22 Specimen Type: BLOOD No comment entered. Ordering Provider: ERICKA CHUNG Report Released Date/Time: Jul 18, 2024 03:45 PM Reporting Lab: [facility] [place] [facility] [address] [address] Performing Lab: [facility] [place] [facility] [address] [address] [facility] [place] [facility] CBC AND DIFF (AUTO) LYMPHOCYTE S [#/VOLUME] IN BLOOD BY AUTOMATED COUNT 1.69 10*3/uL 1.00 - 3.20 08/22 Specimen Type: BLOOD No comment entered. Ordering Provider: ERICKA CHUNG Report Released Date/Time: Jul 18, 2024 03:45 PM Reporting Lab: [facility] [place] [facility] [address] [address] Performing Lab: [facility] [place] [address] [address] [facility] CBC AND DIFF (AUTO) EOSINOPHIL S [#/VOLUME] IN BLOOD BY AUTOMATED COUNT 0.07 10*3/uL 0.03 - 0.44 08/22 Specimen Type: BLOOD No comment entered. Ordering Provider: ERICKA CHUNG Report Released Date/Time: Jul 18, 2024 03:45 PM Reporting Lab: [facility] [place] [address] [address] Performing Lab: [facility] [place] [address] [address] [facility] [place] [facility] CBC AND DIFF (AUTO) BASOPHILS [#/VOLUME] IN BLOOD BY AUTOMATED COUNT 0.02 10*3/uL 0.01 - 0.13 08/22 Specimen Type: BLOOD No comment entered. Ordering Provider: ERICKA CHUNG Report Released Date/Time: Jul 18, 2024 03:45 PM Reporting Lab: [facility] [place] [address] [address] Performing Lab: [facility] [place] [facility] [address] [address] [facility] [place] [facility] CBC AND DIFF (AUTO) IMMATURE GRANULOCYT ES/100 LEUKOCYTES IN BLOOD BY AUTOMATED COUNT 0.3 0.0 - 0.7 08/22 Specimen Type: BLOOD No comment entered. Ordering Provider: ERICKA CHUNG Report Released Date/Time: Jul 18, 2024 03:45 PM Reporting Lab: [facility] [place] [address] [address] Performing Lab: [facility] [place] [facility] [address] [address] [facility] [place] [facility] CBC AND DIFF (AUTO) IMMATURE GRANULOCYT ES [#/VOLUME] IN BLOOD BY AUTOMATED COUNT 0.02 10*3/uL 0.00 - 0.06 08/22 Specimen Type: BLOOD No comment entered. Ordering Provider: ERICKA CHUNG Report Released Date/Time: Jul 18, 2024 03:45 PM Reporting Lab: [facility] [place] [facility] [address] [address] Performing Lab: [facility] [place] [facility] [address] [address] [facility] [place] [facility] CBC AND DIFF (AUTO) NUCLEATED ERYTHROCYT ES/100 LEUKOCYTES [RATIO] IN BLOOD BY AUTOMATED COUNT 0.0 0.0 - 0.0 08/22 Specimen Type: BLOOD No comment entered. Ordering Provider: ERICKA CHUNG Report Released Date/Time: Jul 18, 2024 03:45 PM Reporting Lab: [facility] [place] [facility] [address] [address] Performing Lab: [facility] [place] [address] [address] [facility] [place] [facility] CBC AND DIFF (AUTO) NUCLEATED ERYTHROCYT ES [#/VOLUME] IN BLOOD BY AUTOMATED COUNT 0.00 10*3/uL 0.00 - 0.00 08/22 Specimen Type: BLOOD No comment entered. Ordering Provider: ERICKA CHUNG Report Released Date/Time: Jul 18, 2024 03:45 PM Reporting Lab: [facility] [place] [address] [address] Performing Lab: [facility] [place] [address] [address] [facility] [place] [facility] TSH THYROTROPI N [UNITS/VOL UME] IN SERUM OR PLASMA 1.64 u[IU]/mL 0.35 - 5.00 05/10 Specimen Type: SERUM No comment entered. Ordering Provider: ERICKA CHUNG Report Released Date/Time: Nov 17, 2023 10:29 AM Reporting Lab: [facility]ITALRCENTR[facility]MONTGOMERYTRN [facility]ITALUSEC[facility] [address] [address] Performing Lab: [facility]PITALRCULLMAN REGION[facility]ICAL CENTERN [facility]OSPITALUSECEN[facility] [address] [address] [facility]ITALRCULL[facility]ENTERN [facility] HOSPITALUSE [facility] HEMOGLOB IN A1C PANEL HEMOGLOBIN A1C/HEMOGL OBIN.TOTAL IN BLOOD BY HPLC 5.4 4.0 - 5.6 05/10 Specimen Type: BLOOD Comment: Values obtained from A1C measurement s can vary. For atypical A1C assays, a reported value of 7.0 could actually be between 6.72 and 7.28 if measured by a reference method. A reported value of 9.0 could actually be between 8.73 and 9.27. Ref: http://www. ngsp.org/[place] Pdata.asp Ordering Provider: ERICKA CHUNG Report Released Date/Time: Nov 17, 2023 10:29 AM Reporting Lab: [facility] HOSPITALRCULLMAN REGIONAL MEDICAL CENTERN [facility] HOSPITALUSE[address] [address] Performing Lab: [facility] HOSPITALRL TRN [facility] HOSPITALUSE[address] [address] [facility] [employer] BASIC METABOLI C PANEL (fasting ) UREA NITROGEN [MASS/VOLU ME] IN SERUM OR PLASMA 16 mg/dL 7 - 25 05/10 Specimen Type: SERUM No comment entered. Ordering Provider: ERICKA CHUNG Report Released Date/Time: Nov 17, 2023 10:29 AM Reporting Lab: [facility] HOSPITALRL TRN [facility] HOSPITALUSECEN[facility] [address] [address] Performing Lab: [facility] HOSPITALRL TRN [facility] HOSPITALUSE[address] [address] [facility]USE [facility] BASIC METABOLI C PANEL (fasting ) GLUCOSE [MASS/VOLU ME] IN SERUM OR PLASMA 106 mg/dL 65 - 100 05/10 H Specimen Type: SERUM No comment entered. Ordering Provider: ERICKA CHUNG Report Released Date/Time: Nov 17, 2023 10:29 AM Reporting Lab: [facility] HOSPITALRL TRN [facility] HOSPITALUSE[address] [address] Performing Lab: [facility] [place] [facility] [address] [address] [facility] [place] [place] [facility] BASIC METABOLI C PANEL (fasting ) SODIUM [MOLES/VOL UME] IN SERUM OR PLASMA 138 mmol/L 135 - 145 05/10 Specimen Type: SERUM No comment entered. Ordering Provider: ERICKA CHUNG Report Released Date/Time: Nov 17, 2023 10:29 AM Reporting Lab: [facility] [place] [facility] [address] [address] Performing Lab: [facility] [place] [facility] [address] [address] [facility]ITALRL [facility]N [place] [facility] BASIC METABOLI C PANEL (fasting ) POTASSIUM [MOLES/VOL UME] IN SERUM OR PLASMA 4.9 mmol/L 3.5 - 5.0 05/10 Specimen Type: SERUM No comment entered. Ordering Provider: ERICKA CHUNG Report Released Date/Time: Nov 17, 2023 10:29 AM Reporting Lab: [facility] [place] [facility] [address] [address] Performing Lab: [facility] [place] [facility] [address] [address] [facility] HOSPITALRL WSTRN [facility] HOSPITALUSE [facility] BASIC METABOLI C PANEL (fasting ) CHLORIDE [MOLES/VOL UME] IN SERUM OR PLASMA 105 mmol/L 100 - 110 05/10 Specimen Type: SERUM No comment entered. Ordering Provider: ERICKA CHUNG Report Released Date/Time: Nov 17, 2023 10:29 AM Reporting Lab: [facility] [place] [facility] [address] [address] Performing Lab: [facility] [place] [facility] [address] [address] [facility] HOSPITALRL WSTRN [facility] HOSPITALUSE [facility] BASIC METABOLI C PANEL (fasting ) CARBON DIOXIDE, TOTAL [MOLES/VOL UME] IN SERUM OR PLASMA 27 meq/L 20 - 30 05/10 Specimen Type: SERUM No comment entered. Ordering Provider: ERICKA CHUNG Report Released Date/Time: Nov 17, 2023 10:29 AM Reporting Lab: [facility] [place] [facility] [address] [address] Performing Lab: [facility] [place] [facility] [address] [address] [facility] [place] [facility] BASIC METABOLI C PANEL (fasting ) CREATININE [MASS/VOLU ME] IN SERUM OR PLASMA 0.84 mg/dL 0.50 - 1.40 05/10 Specimen Type: SERUM No comment entered. Ordering Provider: ERICKA CHUNG Report Released Date/Time: Nov 17, 2023 10:29 AM Reporting Lab: [facility] [place] [facility] [address] [address] Performing Lab: [facility] [place] [facility] [address] [address] [facility] [place] [facility] BASIC METABOLI C PANEL (fasting ) GLOMERULAR FILTRATION RATE/1.73 SQ M.PREDICTE D [VOLUME RATE/AREA] IN SERUM, PLASMA OR BLOOD BY CREATININE -BASED FORMULA (CKD-EPI 2020) >90mL/mi n 60 05/10 Specimen Type: SERUM No comment entered. Ordering Provider: ERICKA CHUNG Report Released Date/Time: Nov 17, 2023 10:29 AM Reporting Lab: [facility] [place] [facility] [address] [address] Performing Lab: [facility] [place] [facility] [address] [address] [facility] [place] [facility] LIPID PANEL FASTING CHOLESTERO L [MASS/VOLU ME] IN SERUM OR PLASMA 215 mg/dL 05/10 H Specimen Type: SERUM No comment entered. Ordering Provider: ERICKA CHUNG Report Released Date/Time: Nov 17, 2023 10:29 AM Reporting Lab: [facility] [place] [facility] [address] [address] Performing Lab: [facility] [place] [facility] [address] [address] [facility] [place] [facility] LIPID PANEL FASTING TRIGLYCERI DE [MASS/VOLU ME] IN SERUM OR PLASMA 109 mg/dL 0 - 150 05/10 Specimen Type: SERUM No comment entered. Ordering Provider: ERICKA CHUNG Report Released Date/Time: Nov 17, 2023 10:29 AM Reporting Lab: [facility] [place] [facility] [address] [address] Performing Lab: [facility] [place] [facility] [address] [address] [facility] [place] [facility] LIPID PANEL FASTING CHOLESTERO L IN LDL [MASS/VOLU ME] IN SERUM OR PLASMA BY CALCULATIO N 156 mg/dL 0 - 129 05/10 H Specimen Type: SERUM No comment entered. Ordering Provider: ERICKA CHUNG Report Released Date/Time: Nov 17, 2023 10:29 AM Reporting Lab: [facility] [place] [facility] [address] [address] Performing Lab: [facility] [place] [facility] [address] [address] [facility] [place] [facility] LIPID PANEL FASTING CHOLESTERO L.TOTAL/CH OLESTEROL IN HDL [MASS RATIO] IN SERUM OR PLASMA 5.8 05/10 Specimen Type: SERUM No comment entered. Ordering Provider: ERICKA CHUNG Report Released Date/Time: Nov 17, 2023 10:29 AM Reporting Lab: [facility] [place] [facility] [address] [address] Performing Lab: [facility] [place] [facility] [address] [address] [facility] [place] [facility] LIPID PANEL FASTING CHOLESTERO L IN HDL [MASS/VOLU ME] IN SERUM OR PLASMA 37 mg/dL 40 - 60 05/10 L Specimen Type: SERUM No comment entered. Ordering Provider: ERICKA CHUNG Report Released Date/Time: Nov 17, 2023 10:29 AM Reporting Lab: [facility] [place] [facility] [address] [address] Performing Lab: [facility] [place] [facility] [address] [address] [facility] [place] [facility] LIVER FUNCTION PROTEIN [MASS/VOLU ME] IN SERUM OR PLASMA 6.9 g/dL 6.0 - 8.3 05/10 Specimen Type: SERUM No comment entered. Ordering Provider: ERICKA CHUNG Report Released Date/Time: Nov 17, 2023 10:29 AM Reporting Lab: [facility] [place] [facility] [address] [address] Performing Lab: [facility] [place] [facility] [address] [address] [facility] [place] [facility] LIVER FUNCTION ALBUMIN [MASS/VOLU ME] IN SERUM OR PLASMA 4.0 g/dL 3.5 - 5.0 05/10 Specimen Type: SERUM No comment entered. Ordering Provider: ERICKA CHUNG Report Released Date/Time: Nov 17, 2023 10:29 AM Reporting Lab: [facility] [place] [facility] [address] [address] Performing Lab: [facility] [place] [facility] [address] [address] [facility] [place] [facility] LIVER FUNCTION ALKALINE PHOSPHATAS E [ENZYMATIC ACTIVITY/V OLUME] IN SERUM OR PLASMA 63 U/L 40 - 150 05/10 Specimen Type: SERUM No comment entered. Ordering Provider: ERICKA CHUNG Report Released Date/Time: Nov 17, 2023 10:29 AM Reporting Lab: [facility] [place] [facility] [address] [address] Performing Lab: [facility] [place] [facility] [address] [address] [facility] [place] [facility] LIVER FUNCTION ASPARTATE AMINOTRANS FERASE [ENZYMATIC ACTIVITY/V OLUME] IN SERUM OR PLASMA 18 U/L 5 - 34 05/10 Specimen Type: SERUM No comment entered. Ordering Provider: ERICKA CHUNG Report Released Date/Time: Nov 17, 2023 10:29 AM Reporting Lab: [facility] [place] [facility] [address] [address] Performing Lab: [facility] [place] [facility] [address] [address] [facility]ITALRL [facility] [place] [facility] LIVER FUNCTION ALANINE AMINOTRANS FERASE [ENZYMATIC ACTIVITY/V OLUME] IN SERUM OR PLASMA 27 U/L 05/10 Specimen Type: SERUM No comment entered. Ordering Provider: ERICKA CHUNG Report Released Date/Time: Nov 17, 2023 10:29 AM Reporting Lab: [place] [facility] [place] [facility] [address] [address] Performing Lab: [facility]RL [place] [facility] [address] [address] [facility]ITALRL TRN [facility]OSPITALUSE [facility] LIVER FUNCTION BILIRUBIN. TOTAL [MASS/VOLU ME] IN SERUM OR PLASMA 0.4 mg/dL 0.2 - 1.2 05/10 Specimen Type: SERUM No comment entered. Ordering Provider: ERICKA CHUNG Report Released Date/Time: Nov 17, 2023 10:29 AM Reporting Lab: [facility]ITALRL [place]N [place] [facility] [address] [address] Performing Lab: [facility] HOSPITALRL WSTRN [facility] HOSPITALUSETS [facility] [address] [address] [facility] HOSPITALRCULLMAN REGION[facility] MEDICAL CENTERN [facility]IL[facility]S HOSPITALUSE [facility] CBC AND DIFF (AUTO) LEUKOCYTES [#/VOLUME] IN BLOOD BY AUTOMATED COUNT 8.39 10*3/uL 4.50 - 11.00 05/10 Specimen Type: BLOOD No comment entered. Ordering Provider: ERICKA CHUNG Report Released Date/Time: Nov 17, 2023 10:29 AM Reporting Lab: [facility]ITALRL [facility]N [place] [facility] [address] [address] Performing Lab: [facility]OS[facility]ITALRL WSTRN [facility] [address] [address] [facility] HOSPITALRCULLMAN REGIONAL MED[facility] CENTERN [facility] HOSPITALUSE [facility] CBC AND DIFF (AUTO) ERYTHROCYT ES [#/VOLUME] IN BLOOD BY AUTOMATED COUNT 4.49 10*6/uL 4.23 - 5.66 05/10 Specimen Type: BLOOD No comment entered. Ordering Provider: ERICKA CHNUG Report Released Date/Time: Nov 17, 2023 10:29 AM Reporting Lab: [facility] [place] [facility] [address] [address] Performing Lab: [facility] [place] [place] [facility] [address] [address] [facility] [facility] CBC AND DIFF (AUTO) HEMOGLOBIN [MASS/VOLU ME] IN BLOOD 13.7 g/dL 12.8 - 17 05/10 Specimen Type: BLOOD No comment entered. Ordering Provider: ERICKA CHUNG Report Released Date/Time: Nov 17, 2023 10:29 AM Reporting Lab: [facility] [place] [facility] [address] [address] Performing Lab: [facility] [place] [facility] [address] [address] [facility] [facility] CBC AND DIFF (AUTO) HEMATOCRIT [VOLUME FRACTION] OF BLOOD BY AUTOMATED COUNT 41.3 39.2 - 50.4 05/10 Specimen Type: BLOOD No comment entered. Ordering Provider: ERICKA CHUNG Report Released Date/Time: Nov 17, 2023 10:29 AM Reporting Lab: [facility] [place] [facility] [address] [address] Performing Lab: [facility] [place] [facility] [address] [address] [facility] [place] [facility] CBC AND DIFF (AUTO) MCV [ENTITIC VOLUME] BY AUTOMATED COUNT 92.0 fL 82 - 99 05/10 Specimen Type: BLOOD No comment entered. Ordering Provider: ERICKA CHUNG Report Released Date/Time: Nov 17, 2023 10:29 AM Reporting Lab: [facility] [place] [facility] [address] [address] Performing Lab: [facility] [place] [facility] [address] [address] [facility] [place] [facility] CBC AND DIFF (AUTO) MCHC [MASS/VOLU ME] BY AUTOMATED COUNT 33.2 g/dL 30.8 - 35.1 05/10 Specimen Type: BLOOD No comment entered. Ordering Provider: ERICKA CHUNG Report Released Date/Time: Nov 17, 2023 10:29 AM Reporting Lab: [facility] [place] [facility] [address] [address] Performing Lab: [facility] [place] [facility] [address] [address] [facility] [place] [facility] CBC AND DIFF (AUTO) PLATELETS [#/VOLUME] IN BLOOD BY AUTOMATED COUNT 283 10*3/uL 140 - 360 05/10 Specimen Type: BLOOD No comment entered. Ordering Provider: ERICKA CHUNG Report Released Date/Time: Nov 17, 2023 10:29 AM Reporting Lab: [facility] [place] [facility] [address] [address] Performing Lab: [facility] [place] [facility] [address] [address] [facility] [place] [facility] CBC AND DIFF (AUTO) ERYTHROCYT E DISTRIBUTI ON WIDTH [RATIO] BY AUTOMATED COUNT 12.5 12.0 - 16.0 05/10 Specimen Type: BLOOD No comment entered. Ordering Provider: ERICKA CHUNG Report Released Date/Time: Nov 17, 2023 10:29 AM Reporting Lab: [facility] [place] [facility] [address] [address] Performing Lab: [facility] [place] [facility] [address] [address] [facility] [place] [facility] CBC AND DIFF (AUTO) MONOCYTES [#/VOLUME] IN BLOOD BY AUTOMATED COUNT 0.92 10*3/uL 0.30 - 1.10 05/10 Specimen Type: BLOOD No comment entered. Ordering Provider: ERICKA CHUNG Report Released Date/Time: Nov 17, 2023 10:29 AM Reporting Lab: [facility] [place] [facility] [address] [address] Performing Lab: [facility] [place] [facility] [address] [address] [facility] [facility] CBC AND DIFF (AUTO) MCH [ENTITIC MASS] BY AUTOMATED COUNT 30.5 pg 26.2 - 32.6 05/10 Specimen Type: BLOOD No comment entered. Ordering Provider: ERICKA CHUNG Report Released Date/Time: Nov 17, 2023 10:29 AM Reporting Lab: [facility] [place] [facility] [address] [address] Performing Lab: [facility] [facility] [address] [address] [facility] [place] [facility] CBC AND DIFF (AUTO) NEUTROPHIL S/100 LEUKOCYTES IN BLOOD BY AUTOMATED COUNT 67.1 43.7 - 75.8 05/10 Specimen Type: BLOOD No comment entered. Ordering Provider: ERICKA CHUNG Report Released Date/Time: Nov 17, 2023 10:29 AM Reporting Lab: [facility] [place] [address] [address] Performing Lab: [facility] [place] [facility] [address] [address] [facility] [place] [facility] CBC AND DIFF (AUTO) LYMPHOCYTE S/100 LEUKOCYTES IN BLOOD BY AUTOMATED COUNT 20.5 14.0 - 42.3 05/10 Specimen Type: BLOOD No comment entered. Ordering Provider: ERICKA CHUNG Report Released Date/Time: Nov 17, 2023 10:29 AM Reporting Lab: [facility] [place] [facility] [address] [place] [address] Performing Lab: [facility] [place] [facility] [address] [address] [facility] [place] [facility] CBC AND DIFF (AUTO) MONOCYTES/ 100 LEUKOCYTES IN BLOOD BY AUTOMATED COUNT 11.0 5.1 - 13.7 05/10 Specimen Type: BLOOD No comment entered. Ordering Provider: ERICKA CHUNG Report Released Date/Time: Nov 17, 2023 10:29 AM Reporting Lab: [facility] [place] [address] [address] Performing Lab: [facility] [place] [facility] [address] [address] [facility] [place] [facility] CBC AND DIFF (AUTO) EOSINOPHIL S/100 LEUKOCYTES IN BLOOD BY AUTOMATED COUNT 0.7 0.4 - 6.8 05/10 Specimen Type: BLOOD No comment entered. Ordering Provider: ERICKA CHUNG Report Released Date/Time: Nov 17, 2023 10:29 AM Reporting Lab: [facility] [facility] [address] [address] Performing Lab: [facility] [place] [facility] [address] [address] [facility] [place] [facility] CBC AND DIFF (AUTO) BASOPHILS/ 100 LEUKOCYTES IN BLOOD BY AUTOMATED COUNT 0.2 0.1 - 2.0 05/10 Specimen Type: BLOOD No comment entered. Ordering Provider: ERICKA CHUNG Report Released Date/Time: Nov 17, 2023 10:29 AM Reporting Lab: [facility] [place] [facility] [address] [address] Performing Lab: [facility] [place] [facility] [address] [address] [facility] [place] [facility] CBC AND DIFF (AUTO) NEUTROPHIL S [#/VOLUME] IN BLOOD BY AUTOMATED COUNT 5.63 10*3/uL 2.20 - 7.60 05/10 Specimen Type: BLOOD No comment entered. Ordering Provider: ERICKA CHUNG Report Released Date/Time: Nov 17, 2023 10:29 AM Reporting Lab: [facility] [place] [facility] [address] [address] Performing Lab: [facility] [place] [facility] [address] [address] [facility] [place] [facility] CBC AND DIFF (AUTO) LYMPHOCYTE S [#/VOLUME] IN BLOOD BY AUTOMATED COUNT 1.72 10*3/uL 1.00 - 3.20 05/10 Specimen Type: BLOOD No comment entered. Ordering Provider: ERICKA CHUNG Report Released Date/Time: Nov 17, 2023 10:29 AM Reporting Lab: [facility] [place] [facility] [address] [address] Performing Lab: [facility] [place] [facility] [address] [address] [facility] [place] [facility] CBC AND DIFF (AUTO) EOSINOPHIL S [#/VOLUME] IN BLOOD BY AUTOMATED COUNT 0.06 10*3/uL 0.03 - 0.44 05/10 Specimen Type: BLOOD No comment entered. Ordering Provider: ERICKA CHUNG Report Released Date/Time: Nov 17, 2023 10:29 AM Reporting Lab: [facility] [place] [facility] [address] [address] Performing Lab: [facility] [place] [facility] [address] [address] [facility] [place] [facility] CBC AND DIFF (AUTO) BASOPHILS [#/VOLUME] IN BLOOD BY AUTOMATED COUNT 0.02 10*3/uL 0.01 - 0.13 05/10 Specimen Type: BLOOD No comment entered. Ordering Provider: ERICKA CHUNG Report Released Date/Time: Nov 17, 2023 10:29 AM Reporting Lab: [facility] [place] [facility] [address] [address] Performing Lab: [facility] [place] [facility] [address] [address] [facility] [place] [facility] CBC AND DIFF (AUTO) IMMATURE GRANULOCYT ES/100 LEUKOCYTES IN BLOOD BY AUTOMATED COUNT 0.5 0.0 - 0.7 05/10 Specimen Type: BLOOD No comment entered. Ordering Provider: ERICKA CHUNG Report Released Date/Time: Nov 17, 2023 10:29 AM Reporting Lab: [facility] [facility] [address] [address] Performing Lab: [facility] [place] [facility] [address] [address] [facility] [place] [facility] CBC AND DIFF (AUTO) IMMATURE GRANULOCYT ES [#/VOLUME] IN BLOOD 0.04 10*3/uL 0.00 - 0.06 05/10 Specimen Type: BLOOD No comment entered. Ordering Provider: ERICKA CHUNG Report Released Date/Time: Nov 17, 2023 10:29 AM Reporting Lab: [facility] [address] [address] Performing Lab: [facility] [address] [address] [facility] [employer] [facility] [facility] [employer] CBC AND DIFF (AUTO) NRBC % 0.0 0.0 - 0.0 05/10 Specimen Type: BLOOD No comment entered. Ordering Provider: ERICKA CHUNG Report Released Date/Time: Nov 17, 2023 10:29 AM Reporting Lab: [address] [address] Performing Lab: [phone] [place] [address] CBC AND DIFF (AUTO) NRBC, ABS 0.00 10*3/uL 0.00 - 0.00 05/10 Specimen Type: BLOOD No comment entered. Ordering Provider: ERICKA CHUNG Report Released Date/Time: Nov 17, 2023 10:29 AM Reporting Lab: [address] [id number] Performing Lab: [address] [address] [facility] HEPATITI S B SURFACE ANTIGEN (HBsAg)- WH HEPATITIS B VIRUS SURFACE AG [PRESENCE] IN SERUM OR PLASMA BY IMMUNOASSA Y Non Reactive 11/10 Specimen Type: SERUM Comment: A 'Reactive' result indicates HBsAb results >/= 12.0 mIU/mL and immunity to HBV infection. A Reactive result ( Positive prior to 02/12/13) is diagnostic of acute or chronic hepatitis B infection. The presence of Hepatitis B surface antigen is frequently associated with infectivity . Ordering Provider: ERICKA CHUNG Report Released Date/Time: May 19, 2023 01:56 PM Reporting Lab: [place] [phone] Performing Lab: [facility] [address] [facility] [phone] [facility] Vital Signs Combined list of inpatient and outpatient Vital Signs from Department of Defense and [facility], ranging from 12 months to all on record, depending upon the facility. Vital Sign Value Date Comments Source WEIGHT 341 09/11/2024 13:00:00 [facility] BMI 49 kg/m2 09/11/2024 13:00:00 [facility] WEIGHT 347 09/04/2024 16:12:02 [facility] BMI 50 kg/m2 09/04/2024 16:12:02 [facility] SYSTOLIC BLOOD PRESSURE 140 08/31/19 25 13:00:29 [facility] DIASTOLIC BLOOD PRESSURE 80 025 13:00:29 [facility] PAIN 2 08/30/2024 13:00:29 [facility] SYSTOLIC BLOOD PRESSURE 152 08/29/19 25 10:14:02 [facility] DIASTOLIC BLOOD PRESSURE 98 025 10:14:02 [facility] PULSE OXIMETRY 99 08/28/2024 10:14:02 [facility] WEIGHT 359.2 08/28/2024 10:14:02 [facility] BMI 52 kg/m2 08/28/2024 10:14:02 [facility] PAIN 0 08/28/2024 10:14:02 [facility] HEIGHT 70 08/28/2024 10:14:02 [facility] TEMPERATURE 98.1 08/28/2024 10:14:02 [facility] PULSE 66 08/28/2024 10:14:02 [facility] RESPIRATION 18 08/28/2024 10:14:02 [facility] WEIGHT 347.6 08/21/2024 15:14:43 [facility] BMI 50 kg/m2 08/21/2024 15:14:43 [facility]) Encounters Combined list of: 1) Encounters from Department of Veterans Affairs facilities going backup to the last 18 months, not all [facility] inpatient encounters are included; 2) Encounters from the Department of [facility] facilities going backup to 280 months. Location Location Details Encounter Type Encounter Number Reason For Visit Attending Provider ADM Date DC Date Status Disposition Source [facility] Outpatient Encounter [id number] JM SINCLAIR 03/21 [facility] Encounter [id number] JM SINCLAIR 04/26 [facility] Out[facility] Encounter [id number] JM SINCLAIR 05/09 [facility] Outpatient Encounter [id number] 05/10 [facility] OFFICE O/P EST MOD 30 MIN [id number] Diagnos is: ICD-10- CM I10 Essenti al (primar y) hyperte nsion BRANT CHUNG 05/19 [place] [facility] OFF[facility] O/P EST HI 40 MIN [id number] Diagnos is: ICD-10- CM M54.16 Radicul opathy, lumbar region TRACEE GORDON 06/22 [facility] Outpatient Encounter [id number] 06/22 [facility] OFF[facility] O/P EST MOD 30 MIN [id number] Diagnos is: ICD-10- CM M51.16 Interve rtebral disc disorde rs w radicul opathy, lumbar region Marcell LANDRUM 07/27 [facility] Out[facility] Encounter [id number] 10/16 [facility] OFF[facility] O/P EST HI 40 MIN [id number] Diagnos is: ICD-10- CM M54.59 Other low back pain TRACEE GORDON THI 10/23 [facility] Out[facility] Encounter [id number] 10/23 [facility] OFF[facility] [place] EST HI 40 MIN [id number] Diagnos is: ICD-10- CM M54.16 Radicul opathy, lumbar region TRACEE GORDON THI 10/25 [facility] Encounter [id number] 10/25 [facility] Out[facility] Encounter [id number] 11/06 [facility] Out[facility] Encounter [id number] 11/10 [facility] [place] OFFICE O/P EST LOW 20 MIN [id number] Diagnos is: ICD-10- CM I10 Essenti al (primar y) hyperte nsion BRANT CHUNG SUKHJINDER 11/16 [place] [facility] Encounter [id number] 1.12/01 [facility] Encounter [id number] 1.12/01 [facility]counter [id number] 1.02/20 [facility] En[facility] [id number] [facility] Encounter [id number] 1.03/21 [facility] HC PRO PHONE CALL 5-10 MIN [id number] 1. Diagnos is: ICD-10- CM M54.50 Low back pain, unspeci fied RA CATHY AMOR 04/06 [facility] Out[facility] Encounter [id number] LETITIA ZHANG 04/16 [facility] Encounter [id number] 05/08 [facility] Out[facility] Encounter [id number] 1. LETITIA ZHANG 05/30 [facility] Encounter [id number]/30 [facility] Outpatient Encounter [id number] 06/07 [facility] [place] OFFICE O/P EST MOD 30 MIN [id number] Diagnos is: ICD-10- CM I10 Essenti al (primar y) hyperte nsion BRANT CHUNGE 06/12 [place] [facility] MTMS BY PHARM ADDL 15 MIN [id number] Diagnos is: ICD-10- CM E66.01 Morbid (severe ) obesity due to excess calorie s SWATHI SEYMOUR 06/20 [facility] [place] ([facility]) [facility] IVNTJ GRP EA ADDL [id number] Diagnos is: ICD-10- CM E66.813 Obesity , class 3 RATHKE,GILL RA 07/10 [place] [facility] [place] [facility] [id number] Diagnos is: ICD-10- CM E66.813 Obesity , class 3 LARIVIERE, NELLY A 07/17 [place] [facility]) [facility] Outpatient Encounter [id number] 07/18 [facility] [place] ([facility]) PT EDUCATION NOC GROUP [id number] Diagnos is: ICD-10- CM E66.813 Obesity , class 3 LARIVIERE, NELLY A 07/24 [place] [facility]) [place] ([facility]) PT EDUCATION NOC GROUP [id number] Diagnos is: ICD-10- CM E66.813 Obesity , class 3 LARIVIERE, NELLY A 07/31 [place] [facility]) [facility] MTMS BY PHARM EST 15 MIN [id number] Diagnos is: ICD-10- CM E66.01 Morbid (severe ) obesity due to excess calorie s SWATHI SEYMOUR 07/31 [facility] NQHP OL DIG ASSMT&MGMT 5-10 [id number] Diagnos is: ICD-10- CM E66.01 Morbid (severe ) obesity due to excess calorie s CHARLEY ANDERSON 08/01 [facility] [place] [place] ([facility]) [facility] IVNTJ GRP EA ADDL [id number] Diagnos is: ICD-10- CM E66.813 Obesity , class 3 JAIRO FELIZ RA 08/07 [place] [facility] [place] [facility] [id number]. [id number] Diagnos is: ICD-10- CM E66.813 Obesity , class 3 NELLY GARCIA A 08/14 [place] [facility] ELECTROCAR DIOGRAM REPORT [id number] Diagnos is: ICD-10- CM Z13.6 Encount er for screeni ng for cardiov ascular disorde DEB Matthews 08/20 [facility] [place] ELECTROCAR DIOGRAM TRACING [id number] Diagnos is: ICD-10- CM Z01.818 Encount er for other preproc edural examSTEVE Hatfield 08/20 [facility] [place] [facility] [id number] Diagnos is: ICD-10- CM E66.813 Obesity , class 3 RATHRICKY THAPAU RA 08/21 [place] [facility]) [facility] Outpatient Encounter [id number] 08/22 [facility] Out[facility] Encounter [id number] 08/24 [facility] [place] Outpatient Encounter [id number] 08/28 [facility] [place] OFFICE O/P EST MOD 30 MIN [id number] Diagnos is: ICD-10- CM Z01.818 Encount er for other preproc edural examina BRANT Connors 08/28 [facility] [facility] ADDL [id number] Diagnos is: ICD-10- CM E66.813 Obesity , class 3 RICKY FELIZLeopoldo CRAMER 08/28 [place] [facility]) [facility] MTMS BY PHARM ADDL 15 MIN [id number] Diagnos is: ICD-10- CM E66.01 Morbid (severe ) obesity due to excess calorie s ST MCMAHONSWATHI 08/28 [facility] OFFICE O/P EST LOW 20 MIN [id number] Diagnos is: ICD-10- CM M17.12 Unilate ral primary osteoar thritis , left knee Marcell LANDRUM 08/30 [facility] [place] ([facility]) HL[facility] V IVNTJ GRP EA ADDL [id number] Diagnos is: ICD-10- CM E66.813 Obesity , class 3 JAIRO FELIZ RA 09/04 [place] [facility]) [facility] Outpatient Encounter [id number] 09/11 [facility] [place] [place] [facility] [id number] Diagnos is: ICD-10- CM E66.813 Obesity , class 3 LARIVIERCheryl, NELLY A 09/11 [facility] ([facility]) [place] OFFICE O/P EST MOD 30 MIN [id number] Diagnos is: ICD-10- CM Z01.818 Encount er for other preproc edural examBRANT Thomas 09/13 [facility] Procedures Combined list of: 1) Procedures from Department of Veterans Affairs facilities going back up to thelast 18 months, not all [place] non-surgical procedures are included; 2) All procedures from the Department of Defense facilities. Procedure Procedure Type Code Date Perfomer Comments Sourc e PHLEBOTOMY, THERAPEUTIC (SEPARATE PROCEDURE) 01/10/2001 [facility] YELLOW FEVER VACCINE, LIVE, FOR SUBCUTANEOUS USE 01/18/2000 [facility] PSYCHIATRIC EVALUATION OF HOSPITAL RECORDS, OTHER PSYCHIATRIC REPORTS, PSYCHOMETRIC AND/OR PROJECTIVE TESTS, AND OTHER ACCUMULATED DATA FOR MEDICALDIAGNOSTIC PURPOSES 11/30/2002 [facility] Social History Combined list of available smoking, tobacco, and other social history from Department of Defense and Veterans Affairs facilities. Social History Type Response Date Comment Source Tobacco smoking status [place] [facility] USE FORMER CIGARETTES 08/28/2024 [place] History of tobacco use VA-TOBACCO USE EVERY DAY OTHER TYPE 08/28/2024 [place] History of tobacco use VA-TOBACCO FORMER USER 05/19/2023 [place] History of tobacco use VA-TOBACCO USER EVERY DAY 04/16/2022 [place] History of tobacco use VA-TOBACCO USER EVERY DAY 05/14/2021 [place] History of tobacco use VA-TOBACCO FORMER USER 03/25/2020 [facility] [place] [facility] History of tobacco use VA-TOBACCO QUIT 15 YRS OR MORE 03/20/2019 [place] History of tobacco use CURRENT SMOKER 01/18/2018 Vape 3mg, Quit cigarettes 08/2017 [place] History of tobacco use CURRENT SMOKER 03/29/2017 1 pack daily since 17yrs old [place] History of tobacco use CURRENT SMOKER 01/31/2014 smokes one ppd of cigaretts [place] History of tobacco use CURRENT SMOKER 10/05/2012 Pt. stated he smokes a pack a day. [place] History of tobacco use CURRENT SMOKER 01/16/2009 1 ppd x 10yrs [place] History of tobacco use V1-PT DECLINES TOBACCO CESSATION MEDS 09/10/2008 [place] History of tobacco use CURRENT SMOKER 11/13/2007 1 ppd [place] History of tobacco use V1-PT READY TO QUIT TOBACCO USE 02/17/2007 [place] History of tobacco use CURRENT SMOKER 11/21/2006 [place] History of tobacco use CURRENT SMOKER 10/07/2005 [place] This section is an empty social history section. [facility] Plan of Care List of future care activities from Department of Veterans Affairs facilities. Additional future care activities may be listed in the Assessment and Plan section. Date/Time Care Activity Care Activity Detail Facili ty 09/25/2024 AMBULATORY - MEDICINE AMBULATORY - MEDICI [facility] [place] [facility]
--- OUTSIDE RECORDS SUMMARY | 2024-09-18 11:58 | XMS_ITS | Encounter Summary ---
Author Name [facility] [facility] [place] Address [address] [place] [address] Care Team Providers Care Inpatient Coder Name Role Phone ERICKA CHUNG Primary Care Provider Unavailmerly reyna Insurance Providers: All historical and current Section [...] Type Encounter Description Reason Provider Source September 11, 2024 01:00 PM [facility] WEIGHT MGMT & MOVE! PROG - GRP ICD-10-CM E66.813 Obesity, class 3 LARIVIERLUPE Reyna [facility] Cheryl Encounter Template Text not used by [place] Assessments - Encounter Diagnoses This section includes the primary and secondary diagnoses documented for the Encounter. Date/Time Primary/Secondary Diagnosis Diagnosis Name Provider Source September 14, 2024 12:01 PM PRIMARY Obesity, class 3 ISABELLA GARCIA ([facility]) September 14, 2024 12:01 PM SECONDARY Body mass index [BMI] 45.0-49.9, adult ISABELLA GARCIA ([facility]) Plan of Treatment: Future Appointments (+ 6 months) and Future Tests (+/- 45 days) The Plan of Treatment section includes future care activities for the patient from all [place] [facility] This section includes future appointments and future orders which are active, pending or scheduled. Future Appointments This section includes appointments that were scheduled to occur 6 months from the date of the Encounter, up to a maximum of 20 appointments. The data comes from all [facility]. Appointment Date/Time Appointment Type Appointme nt Facility Name September 13, 2024 03:00 PM AMBULATORY - MEDICINE [facility] September 25, 2024 02:30 PM AMBULATORY MEDICINE [facility] Dec 10, 2024 02:00 PM AMBULATORY MEDICINE [facility] Active, Pending, and Scheduled Orders This section includes a listing of several types of active, pending, and scheduled orders, including clinic medications orders, diagnostic test orders, procedure orders and consult orders; where the start date of the order is 45 days before the date of the Encounter or 45 days after the date of theEncounter. The data comes from all [facility]. Test Date/Time Test Type Test Details Facility Name Aug 28, 2024 08:39 AM Consult Order COMMUNITY CARE-PODIATRY Cons [employer] [facility] Lab Results: +/- 30 days of the [...] Type Comment Aug 22, 2024 09:09 AM [facility] BASIC METABOLIC PANEL (fasting) SERUM Specime n Type: SERUM No comment entered. Ordering Provider: ERICKA CHUNG Report Released Date/Time: Jul 18, 2024 03:45 PM Reporting Lab: [address] [address] Performing Lab: [address] [address] [facility] NITROGEN 18 mg/dL 9-21 GLUCOSE 94 mg/dL 65-100 SODIUM 139 mmol/L 136-145 POTASSIUM 4.4 mmol/L 3.5-5.1 CHLORIDE 106 mmol/L 98-107 CO2 25 meq/L 22-29 CALCIUM 9.0 mg/dL 8.4-10.2 CREATININE, Serum 0.77 mg/dL 0.72-1.25 eGFR(CKD-EPI 2020) >90 mL/min >60 Aug 22, 2024 09:09 [facility] CBC AND DIFF (AUTO) BLOOD Specimen Type: BLOO D No comment entered. Ordering Provider: ERICKA CHUNG Report Released Date/Time: Jul 18, 2024 03:45 PM Reporting Lab: [facility] [address] [facility] [address] Performing Lab: [facility] [address] [facility] [address] WBC 6.93 10*3/uL 4.50-11.00 RBC 4.27 10*6/uL [...] Height Weight Body Mass Index Source September 11, 2024 01:00 PM 341 49 [place] ([facility]) Encounter Notes: All associated encounter notes This section contains the clinical notes associated to the Encounter. Date/Time Encounter Note(s) Provider Source September 11, 2024 01:00 PM MOVE NOTE: LOCAL TITLE: WEIGHT MANAGEMENT/MOVE! OUTPATIENT GROUP NOTE STANDARD TITLE: MOVE NOTE DATE OF NOTE: SEPTEMBER 11, 2024@13:00 ENTRY DATE: SEPTEMBER 14, 2024@11:46:05 AUTHOR: NELLY GARCIA COSIGNER: URGENCY: STATUS: COMPLETED Veterans participated in MOVE! Group Counseling via [facility] on: 09/11/2024 The was provided with information on VVC and has given verbal consent to use group VVC services for their healthcare. The copy of the Group Telehealth Agreement has been mailed to the . The 's location/emergency contact number were confirmed. The Emergency [...] session by reviewing the previous weeks topic (Pump Up Your Physical Activity). Participants were asked to share their respective progress toward achieving their respective goals and to share their experiences with keeping a food and physical activity log over the past week. Positive feedback was given to the Veterans for their efforts. Session #11 (Finesse Your Food) was then conducted using the MOVE! [place] Workbook. Facilitators discussed the importance of macronutrients (carbohydrates, protein, and fat) in a healthful diet, along with each macronutrients role in their body. The topic of fiber, how it relates to satiety, and fiber-rich food sources was discussed. Recipe substitutions, snack options and seasoning suggestions were provided. Finally, the use of fad diets for long-term weight management was discouraged. The objectives accomplished at todays session were: 1. Helped Veterans recognize and understand the three macronutrients in a healthy diet. 2. Identified at least one healthy substitution to improve food choices. 3. Helped Veterans learn how to recognize a fad diet. Participants were asked to set one healthy eating and physical activity goal to work on this week, continue recording weight daily, to log all food and beverages consumed daily, and to also log all physical activities daily. They were instructed to continue to bring their completed Food and Physical Activity Logs to every session. The next [facility] MOVE! group meeting will be held on September 25, 2024 Today's Weight: 341 lb Weight Loss of -6.0 lb from last visit Dx: Obesity, Class III E66.813, Z68.42 /es/ NELLY GARCIA RD,LDN STAFF DIETITIAN Signed: 09/14/2024 12:10 Receipt Acknowledged By: 09/14/2024 13:01 /es/ Maile Cuba, PhD Clinical Psychologist NELLY GARCIA ([facility])
--- OUTSIDE RECORDS SUMMARY | 2024-09-18 11:58 | XMS_ITS | Encounter Summary ---
Author Name [facility] Address [address] [place] [address] Care Team Providers Care Rabbler Name Role Phone ERICKA CHUNG Primary Care [...] section includes the information on record at [facility] for the Encounter. Date/Time Encounter Type Encounter Description Reason Provider Source August 30, 2024 01:00 PM OFFICE O/P EST LOW 20 MIN PM&RS PHYSICIAN ICD-10-CM M17.12 Unilateral primary osteoarthritis, left knee KHANH LANDRUM [facility] Encounter Template Text not used by [facility] Assessments - Encounter Diagnoses This section includes the primary and secondary diagnoses documented for the Encounter. Date/Time Primary/Secondary Diagnosis Diagnosis Name Provider Source August 31, 2024 09:12 AM PRIMARY Unilateral primary osteoarthritis, left knee MARY LOU LANDRUM [facility] August 31, 2024 09:12 AM SECONDARY Body mass index [BMI] 45.0-49.9, adult MARY LOU LANDRUM [facility] [place] [facility] August 31, 2024 09:12 AM SECONDARY Chondromalacia patellae, left knee MARY LOU LANDRUM [facility] Plan of Treatment: Future Appointments (+ 6 months) and Future Tests (+/- 45 days) The Plan of Treatment section includes future care activities for the patient from all [facility] treatmentfacilities. This section includes future appointments and future orders which are active, pending or scheduled. Future Appointments This section includes appointments that were scheduled to occur 6 months from the date of the Encounter, up to a maximum of 20 appointments. The data comes from all [facility] facilities. Appointment Date/Time Appointment Type Appointme nt Facility Name September 03, 2024 02:00 PM AMBULATORY - MEDICINE [facility] September 25, 2024 02:30 PM AMBULATORY MEDICINE [facility] Dec 10, 2024 02:00 PM AMBULATORY MEDICINE [facility] Active, Pending, and Scheduled Orders This section includes a listing of several types of active, pending, and scheduled orders, including clinic medications orders, diagnostic test orders, procedure orders and consult orders; where the start date of the order is 45 days before the date of the Encounter or 45 days after the date of theEncounter. The data comes from all [facility]. Test Date/Time Test Type Test Details Facility Name Aug 28, 2024 08:39 AM Consult Order COMMUNITY CARE-PODIATRY Cons Artist Agent's Choice [facility] Lab Results: +/- 30 days of the encounter This section includes the Chemistry and Hematology Lab Results on record with [facility] for the patient. Radiology Reports and Pathology [...] Jul 18, 2024 03:45 PM Reporting Lab: [address] [id number] Performing Lab: [facility] [address] [facility] [id number] UREA NITROGEN 18 mg/dL 9-21 GLUCOSE 94 [...] [facility] [address] [facility] [id number] Performing Lab: [facility] [address] [facility] [id number] WBC 6.93 10*3/uL 4.50-11.00 RBC 4.27 10*6/uL [...] Pain Height Weight Body Mass Index Source August 30, 2024 01:00 PM 140/80 2 [facility] Social History: Smoking Status (Most current) and Tobacco Use (All prior to encounter date) This section includes the most current, and the historical, smoking and tobacco- related health factors from the [facility] facility where the Encounter took place. Current Smoking Status This section includes the most current smoking, or tobacco-related health factor, from the [facility] facility where the Encounter took place. Date/Time Current Smoking Status Comment Facil ity Mar 25, 2020 09:50 AM [facility]-TOBACCO FORMER USER [facility] Tobacco Use History This section includes a history of the smoking, or tobacco-related health factors, that were collected on or before the date of the Encounter. The data comes from the [facility] facility where the Encounter took place. Date/Time Smoking Status/Tobacco Use Comment F acility Mar 25, 2020 09:50 AM [facility]-TOBACCO QUIT 1 TO < 5 YRS [facility] Encounter Notes: All associated encounter notes This section contains the clinical notes associated to the Encounter. Date/Time Encounter Note(s) Provider Source August 30, 2024 01:27 PM PHYSICAL MEDICINE REHAB PHYSICIAN NOTE: LOCAL TITLE: PM&R FOLLOW-UP STANDARD TITLE: PHYSICAL MEDICINE REHAB PHYSICIAN NOTE DATE OF NOTE: AUGUST 30, 2024@13:27 ENTRY DATE: AUGUST 30, 2024@13:27:21 AUTHOR: ARLEY LANDRUM COSIGNER: URGENCY: STATUS: COMPLETED AUGUST 30, 2024 SAVANNAH STEVEN is a 44 y/o MALE who presents today for follow-up of left knee pain. Approximately 1 month ago [place] at a hyperflexion injury. His pain since that time has improved. Initially he was having significant swelling. The swelling has since dissipated. He is now able to flex the knee more fully. Max flexion with external rotation of the hip can aggravate symptoms. He does have some degree of femoral acetabular impingement. He has minimal pain at this point and pain levels are no greater than 2 out of 10. Primary care provider gave him a prescription for diclofenac gel which she finds very helpful. [place] continues to work on his obesity. He has started [employer]. He is beginning to see some degree of weight loss. He previously was seen for right-sided radiculopathy and the epidural injection, right L3-4 and L4 06 March 2024 continues to provide adequate relief. He is not experiencing pain radiating distally. PMHx as obtained from Chart: Active problems - Computerized Problem List is the source for the followin. Hypertension 2. Sleep apnea 3. Back pain 4. Neuropathy 5. Former Smoker 6. Psoriasis 7. Morbid obesity Soc Hx: MARITAL STATUS - [employer] FROM Jun TO Jun ALL: Patient has answered NKA MEDS: Reviewed and Reconciled ROS: Constitutional - Denies fever or chills, night sweats, or unexplained weight loss. Head/Eyes/Ears/Neck- Denies headaches, visual changes. Cardiovascular - Denies chest pain/tightness, lower extremity swelling. Respiratory - Denies shortness of breath, or cough. GI - Denies nausea, vomiting, or loss of bowel fx/control. - Denies pelvic pain or loss of bladder function. Musculoskeletal - See HPI. Neuro - Denies numbness or tingling of the extremities. Skin/integuments - Denies rashes, lesions, or skin breakdown in the extremities. All other systems reviewed and are negative. PHYSICAL EXAMINATION: Vitals in chart. GEN: WD, WN. Awake, alert, cooperative with exam. PSYCH: Good eye contact. Appropriate affect and social interaction. HEENT: Normocephalic, atraumatic. CVS: Extremities warm/well perfused. No lower extremity edema. PULM: Breathing unlabored, no accessory muscle use. ABD: Nondistended. EXTREMITIES: No cyanosis or edema of bilateral upper and lower extremities. MUSCULOSKELETAL EXAM: He lacks some degree of internal rotation of the hip. He is not having reproduction of symptoms with internal rotation. With external rotation does get some degree of discomfort over the medial joint line. There is no effusion redness or warmth. He has a negative Arnoldo. Negative Aaron negative pivot. Weakly positive patellar compression test with lateralization of the patella. There was trace fullness in the popliteal space. Distal pulses were intact. No swelling in the lower extremity. Diagnostic Studies: Previous x-rays demonstrated mild to moderate medial compartment arthritis ASSESSMENT/PLAN: Patient is a 44-year-old with mild to moderate medial compartment arthritis. Previous injury is suspicious for meniscal injury. He is making improvement at this point. Continue diclofenac gel. If symptoms fail to improve as they have been, would consider intra-articular injection and possible MRI scan to determine if arthroscopy is warranted. FOLLOW-UP: [place] would like to reach out to us if symptoms do not continue to improve. Potential risks and side effects of any medication(s) prescribed today was reviewed with . Patient had many excellent questions, which I answered to the best of my ability and to patient's apparent satisfaction. MDM: _20 minutes which includes reviewing records, evaluating patient, documenting in medical record, educating, counseling and coordinating care. Medication Reconciliation: Outpatient: Has the patient been [...] JLV. Allergies/ADRs (Tool #5) FACILITY ALLERGY/ADR -------- [facility] No Known Allergies [facility] NO KNOWN ALLERGIES Med Recon NoGloary (Tool #1) INCLUDED IN THIS LIST: Alphabetical list of active outpatient prescriptions dispensed from this [facility] (local) and dispensed from another [facility] or [facility] facility (remote) as well as [...] the patient into personal health records (i.e. [employer]) are NOT included in this list. Non-[facility] medications documented outside this [facility], remote inpatient orders (regardless of status) and remote clinic medications are NOT included in this list. The patient and provider must always discuss medications the patient is taking, regardless of where the medication was dispensed or obtained. Non-VA CHOLECALCIF 50MCG (D3-2,000UNIT) TAB TAKE TWO TABLETS BY MOUTH ONCE DAILY Patient wants to buy from Non-[facility] pharmacy. OUTPT DICLOFENAC NA 1% TOP GEL (Status = Active) APPLY 4 GRAMS TOPICALLY FOUR TIMES A DAY FOR JOINT PAIN FOR OSTEOARTHRITIS - USE DOSING CARD PROVIDED IN BOX Rx# [id number] Last Released: 07/18/24 Qty/Days Supply: 200/14 Rx Expiration Date: 06/30/25 Refills Remainin Indication: FOR JOINT PAIN OUTPT DULOXETINE HCL 60MG EC CAP (Status = Active) TAKE ONE CAPSULE BY MOUTH ONCE DAILY Rx# [id number] Last Released: 08/23/24 Qty/Days Supply: 90/90 Rx Expiration Date: 06/13/25 Refills Remainin Indication: FOR CHRONIC MUSCLE OR BONE PAIN OUTPT LISINOPRIL 10MG TAB (Status = Active) TAKE ONE TABLET BY MOUTH ONCE DAILY TO CONTROL BLOOD PRESSURE Rx# [id number] Last Released: 08/24/24 Qty/Days Supply: 90/90 Rx Expiration Date: 06/13/25 Refills Remainin OUTPT NAPROXEN 500MG TAB (Status = Discontinued) TAKE ONE TABLET BY MOUTH TWICE DAILY TAKE WITH FOOD; FOR PAIN/INFLAMMATION/SWELLING Rx# [id number] Last Released: 06/05/24 Qty/Days Supply: 180/90 Rx Expiration Date: 08/29/24 Refills Remainin Indication: FOR PAIN OUTPT NAPROXEN 500MG TAB (Status = Active) TAKE ONE TABLET BY MOUTH TWICE DAILY TAKE WITH FOOD; FOR PAIN/INFLAMMATION/SWELLING Rx# [id number] Last Released: Qty/Days Supply: 180/90 Rx Expiration Date: 08/29/25 Refills Remainin Indication: FOR PAIN OUTPT PREGABALIN 150MG ORAL CAP (Status = Discontinued) TAKE ONE CAPSULE BY MOUTH TWICE DAILY FOR NERVE PAIN Rx# [id number] Last Released: 05/03/24 Qty/Days Supply: 60/30 Rx Expiration Date: 06/03/24 Refills Remainin Indication: FOR NERVE PAIN OUTPT PREGABALIN 150MG ORAL CAP (Status = Discontinued) TAKE ONE CAPSULE BY MOUTH TWICE DAILY FOR NERVE PAIN Rx# [id number] Last Released: 07/23/24 Qty/Days Supply: 60/30 Rx Expiration Date: 12/01/24 Refills Remainin Indication: FOR NERVE PAIN OUTPT PREGABALIN 150MG ORAL CAP (Status = Active) TAKE ONE CAPSULE BY MOUTH TWICE DAILY FOR NERVE PAIN Rx# [id number] Last Released: 08/30/24 Qty/Days Supply: Rx Expiration Date: 02/28/25 Refills Remainin Indication: FOR NERVE PAIN OUTPT SEMAGLUTIDE WL 0.25MG/0.5ML PEN 0.5ML (Status = Discontinued) INJECT 0.25MG SUBCUTANEOUSLY ONCE A WEEK Rx# [id number] Last Released: 08/07/24 Qty/Days Supply: 08/27 Rx Expiration Date: 09/01/24 Refills Remainin Indication: FOR WEIGHT LOSS OUTPT SEMAGLUTIDE WL 0.5MG/0.5ML PEN 0.5ML (Status = Active) INJECT 0.5MG SUBCUTANEOUSLY ONCE A WEEK FOR WEIGHT LOSS Rx# [id number] Last Released: 08/29/24 Qty/Days Supply: 08/27 Rx Expiration Date: 09/27/24 Refills Remainin Indication: FOR WEIGHT LOSS SUPPLIES /clifford/ ARLEY LANDRUM [facility] Signed: 08/30/2024 13:40 ARLEY LANDRUM [facility]
[2024-10-08 11:44] VITALS: BMI 50.5
--- NOTE | 2024-10-08 14:59 | HO.ANESPROP2 ---
Documented by User: Teresa Vanessa NP 10/08/24 15:00 HPI - Anesthesia Eval Consult details Narrative: 44yo M for Right 2nd Toe Hammertoe Repair, Extensor Tenotomy Metatarsal 2nd Joint Repair BMI 50 Anesthesia Pre-Procedure Meds Is the patient on any of the following meds?: GLP1/DPP4 PMFSH Past Medical History Medical History (Updated 10/08/24 @ 11:54 by Danielle King RN) Carpal tunnel syndrome, bilateral Morbid obesity Neuropathy Psoriasis Former smoker Back pain Sleep apnea HTN (hypertension) Surgical History Surgical History (Updated 10/08/24 @ 11:53 by Danielle King RN) Hx of knee surgery History of carpal tunnel release of both wrists Social History Social History Tobacco use type: Smokeless Tobacco Have you been hit, kicked, punched, or otherwise hurt by someone within the past year? If so, by whom?: No Are you DNR?: No Advance Directives: No Advance Directives Information Provided: Yes Meds Allergies Allergy/AdvReac Type Severity Reaction Status Date / Time No Known Allergies Allergy Verified 10/08/24 11:43 Home Medications ?Medication ?Instructions ?Recorded ?Confirmed ?Last Taken ?Type cholecalciferol (vitamin D3) 50 100 mcg PO DAILY 10/08/24 10/08/24 Unknown History mcg (2,000 unit) tablet diclofenac sodium 1 % topical gel 2 g topical QID 10/08/24 10/08/24 Unknown History duloxetine 60 mg capsule,delayed 60 mg PO DAILY 10/08/24 10/08/24 Unknown History release sprinkle lisinopril 10 mg tablet 10 mg PO DAILY 10/08/24 10/08/24 10/10/24 History naproxen 500 mg tablet 500 mg PO BID 10/08/24 10/08/24 10/08/24 History pregabalin 150 mg capsule 150 mg PO BID 10/08/24 10/08/24 Unknown History semaglutide 0.25 mg or 0.5 mg (2 0.25 mg subcut QWEEK 10/08/24 10/08/24 09/26/24 History mg/3 mL) subcutaneous pen injector Exam Height,Weight and Vital Signs: Height 5 ft 10 in Weight 159.665 kg Assessment and Plan Assessment Anesthesia Assessment: Chart Reviewed Documented by User: Paulo Anderson MD 10/10/24 12:55 PMF Past Medical History Medical History (Updated 10/08/24 @ 11:54 by Danielle King RN) Carpal tunnel syndrome, bilateral Morbid obesity Neuropathy Psoriasis Former smoker Back pain Sleep apnea HTN (hypertension) Family History Family history of problems with anesthesia: No Surgical History Surgical History (Updated 10/08/24 @ 11:53 by Danielle King RN) Hx of knee surgery History of carpal tunnel release of both wrists History of Problems with Anesthesia: No Social History Social History Tobacco use type: Smokeless Tobacco Have you been hit, kicked, punched, or otherwise hurt by someone within the past year? If so, by whom?: No Are you DNR?: No Advance Directives: No Advance Directives Information Provided: Yes Meds Allergies Allergy/AdvReac Type Severity Reaction Status Date / Time No Known Allergies Allergy Verified 10/08/24 11:43 Home Medications ?Medication ?Instructions ?Recorded ?Confirmed ?Last Taken ?Type cholecalciferol (vitamin D3) 50 100 mcg PO DAILY 10/08/24 10/08/24 Unknown History mcg (2,000 unit) tablet diclofenac sodium 1 % topical gel 2 g topical QID 10/08/24 10/08/24 Unknown History duloxetine 60 mg capsule,delayed 60 mg PO DAILY 10/08/24 10/08/24 Unknown History release sprinkle lisinopril 10 mg tablet 10 mg PO DAILY 10/08/24 10/08/24 10/10/24 History naproxen 500 mg tablet 500 mg PO BID 10/08/24 10/08/24 10/08/24 History pregabalin 150 mg capsule 150 mg PO BID 10/08/24 10/08/24 Unknown History semaglutide 0.25 mg or 0.5 mg (2 0.25 mg subcut QWEEK 10/08/24 10/08/24 09/26/24 History mg/3 mL) subcutaneous pen injector Exam Airway Mallampati Class: III TM Dist: >3cm Neck ROM: Full Loose/Missing/Broken Teeth: No Heart: RRR Lungs: CTA Assessment and Plan Assessment Anesthesia Assessment: Anesthesia Plan Discussed Final Anesthetic Review Family History of Problems with Anesthesia: No History of Problems with Anesthesia: No NPO: Yes Patient Risk: Intermediate Procedure Risk: Low Anesthetic Plan Anesthetic Plan: GA Disposition: Standard PACU
[2024-10-10 12:16] VITALS: BP 174/89; PULSE 73; RESP 18; TEMP 36.3; O2SAT 96; BMI 47.3
--- NOTE | 2024-10-10 13:22 | MHC.SHP ---
Pre-Procedural Eval Section A - 24 Hr Update-Section A only Date of Service: 10/10/24 The patient is an INPATIENT: No Changes since office visit: No Cold of Flu in the past 2 weeks, No New Medical Problems, No Changes in Medication and No Patient answered all questions The patient has been examined within 24 hours of the surgical procedure. The History & Physical has been completed within 30 days and I have reviewed it.: Yes Section B - Complete if H&P > 30 days Chief Complaint: Subluxation of metatarsophalangeal joint,hammertoe Allergies: Allergies Allergy/AdvReac Type Severity Reaction Status Date / Time No Known Allergies Allergy Verified 10/08/24 11:43 Plan I have reviewed the history and physical and performed a pertinent physical examination on my patient. No changes have occurred unless specified. Time Spent With Patient Time: Total time managing care of this patient today 20 minutes.
--- NOTE | 2024-10-10 13:23 | PM.OP ---
Brief Operative Note Date of Service: 10/10/24 Pre-op diagnosis: Hammertoe, right second toe Procedure: Correction of Hammertoe, Right second toe Implants: none Surgeon: Edna Veloz DPM Was an Front End Web Developer used for this Procedure?: Yes Front End Web Developer: Melani Tubbs Estimated blood loss (mL): 2 Tourniquet time (min): 12 Pathology: none sent Condition: stable Disposition: PACU
--- NOTE | 2024-10-10 14:19 | W.PM.OPN ---
Operative Note Operative Note Date of Service: 10/10/24 Narrative: The patient was brought to the operating room placed on the operating table in a supine position. Following IV sedation by anesthesia a local injectable one-to-one mix of 0.5% Marcaine plain and 1% lidocaine plain was used for local anesthesia. The right foot was then scrubbed prepped and draped in the usual sterile fashion. Attention was directed to the right foot where a hammertoe deformity was appreciated with dorsal subluxation of the 2nd metatarsophalangeal joint. An incision was made over the proximal interphalangeal joint and deepened through subcutaneous tissue with care to identify and retract all vital neurovascular structures. A transverse tenotomy was performed in the medial and lateral collateral ligaments were sharply excised, thus exposing the head of the proximal phalanx the operative field. Next the head of the proximal phalanx was resected with a sagittal saw and passed off the surgical field. Immediate reduction of the proximal interphalangeal joint contracture was appreciated. Next utilizing a stab incision the 2nd metatarsophalangeal joint contracture was sharply released. The surgical sites were then thoroughly irrigated with sterile normal saline. The extensor tendon was approximated with 3-0 Vicryl. The skin was approximated with 4-0 nylon. An additional 6 cc of 0.5% Marcaine plain was injected into the operative field. The patient tolerated the procedure and anesthesia well. A postoperative monitoring the patient will be discharged home with oral and written instructions
[2024-10-10 14:22] VITALS: BP 139/71; PULSE 66; RESP 16; TEMP 36.4; O2SAT 98
[2024-10-10 14:27] VITALS: BP 131/66; PULSE 58; RESP 17; O2SAT 98
[2024-10-10 14:32] VITALS: BP 146/68; PULSE 59; RESP 16; O2SAT 98
[2024-10-10 14:37] VITALS: BP 143/72; PULSE 61; RESP 16; O2SAT 98
[2024-10-10 14:45] VITALS: BP 150/75; PULSE 56; RESP 18; O2SAT 97
== END 2024-10-10 15:32 | disposition home or self-care (01) ==
PROVIDERS: PCP Family Medicine; Visit Provider Student in an Organized Health Care Education/Training Program
PROC: (CPT 28285; principal; 2024-10-10 13:30)
PROC: (CPT 28285; 2024-10-10 13:30)
DX: S93.144A Subluxation of metatarsophalangeal joint of right lesser toe(s), initial encounter (principal); M20.41 Other hammer toe(s) (acquired), right foot; M79.674 Pain in right toe(s); M19.071 Primary osteoarthritis, right ankle and foot; I10 Essential (primary) hypertension; G62.9 Polyneuropathy, unspecified; G47.33 Obstructive sleep apnea (adult) (pediatric); L40.9 Psoriasis, unspecified; E66.01 Morbid (severe) obesity due to excess calories; Z68.43 Body mass index [BMI] 50.0-59.9, adult; Z79.1 Long term (current) use of non-steroidal anti-inflammatories (NSAID); Z79.899 Other long term (current) drug therapy; Z79.85 Long-term (current) use of injectable non-insulin antidiabetic drugs; Z87.891 Personal history of nicotine dependence; X58.XXXA Exposure to other specified factors, initial encounter; Y93.9 Activity, unspecified; Y92.9 Unspecified place or not applicable; Y99.9 Unspecified external cause status
CPT/HCPCS: 28285; 28234; J0131; J0665; J0690; J1100; J2003; J2004; J2250; J2704; J2795; J3010